=== PATIENT | male | born 1965 | race Caucasian/White ===

== ENCOUNTER 2017-09-16 18:30 | Inpatient (IN) ==
[2017-09-16] MEDS ORDERED: Piperacillin/Tazobactam 3.375 GM in Water for inj. (sterile) 20 ML 20 ML IVP ONE (19:40)
[2017-09-16 20:04] LABS: Basophils % 0.1 %; Eosinophils # 0.1 K/mcL (0.0-0.6); Eosinophils % 0.4 %; Hematocrit 33.9 % (37.5-50.1); Hemoglobin 10.5 g/dL (12.9-16.9); Immature Granulocytes % 0.4 % (0-4); Lymphocytes # 0.6 K/mcL (0.6-4.6); Lymphocytes % 4.1 %; Mean Corpuscular Hemoglobin 26.9 pg (28.0-33.3); Mean Corpuscular Volume 86.9 fL (83.0-100.0); Mean Platelet Volume 9.8 fL (9.4-12.4); Monocytes # 0.9 K/mcL (0.0-1.3); Neutrophils # 12.7 K/mcL (1.6-8.9); Platelet Count 284 K/mcL (140-400); Red Cell Distribution Width 13.5 % (11.5-14.5)
[2017-09-16 20:12] LABS: Calcium 9.3 mg/dL (8.6-10.3); Potassium 4.4 mEq/L (3.5-5.1)
--- NOTE | 2017-09-16 20:18 | Emergency Department Note ---
START Narrative - START START: I, Alan Castro, examined this patient and my medical decision-making was reviewed with the TRACK FITTER/PA/Advanced Practice Nurse/Resident Physician. I agree with the documented findings, disposition and treatment plan as described except to the extent set forth below. 51-year-old male presents emergency Department with concerns of infection to the left heel. 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 Patient states he had been on his feet for an extended period of time within the past week. Patient now has had increased pain with resting his foot on the ground as well as with walking. Patient describes an elevated temperature of 99.9. He took aspirin prior to arrival. Patient denies nausea, vomiting, diarrhea, chest pain , shortness of breath, abdominal pain. Has a history of severe diabetes with peripheral neuropathy. Patient is pending laboratory evaluation and imaging he will likely be admitted to the hospital with IV antibiotics for likely MRI and further evaluation of his left foot cellulitis
[2017-09-16] MEDS ORDERED: 0.9 % Sodium Chloride 1,000 ML IVC ONE (20:22)
--- NOTE | 2017-09-16 20:28 | Emergency Department Note ---
Disposition Clinical Impression: Foot ulcer Qualifiers: Laterality: left Non-pressure ulcer stage: unspecified non-pressure ulcer stage Qualified Code(s): L97.529 - Non-pressure chronic ulcer of other part of left foot with unspecified severity Disposition: Admitted As Inpatient Condition: Good Time of Disposition: 22:32 General Adult HPI - General Chief complaint: ED Skin/Abscess/Foreign Body Stated complaint: "bottom of my heals black" Time Seen by Provider: 09/16/17 19:13 Source: patient Limitations: no limitations Nursing Notes Reviewed: Yes Vital Signs Reviewed: Yes - History of Present Illness HPI Narrative: 51-year-old male with significant past medical history of stroke currently on aspirin and poorly controlled diabetes taking insulin presenting to the emergency department with chief complaint of sore on his left heel. Patient states he noticed approximately 3 days ago what he thought was a small sore on the bottom of his left heel. Today he took a picture left heel and he was unable to see it himself and noticed it looked black. He was concerned and came to the emergency department. Patient has had multiple toes removed on the left foot due to diabetic ulcers in the past. Patient denies any systemic symptoms at home. He has no complaints at this time. Denies chest pain, shortness of breath or fevers. Patient denies ever having a MRSA infection. He does state he is unable to take vancomycin because it caused him renal failure previously. Pain Scale: 2 - Related Data Home Medications Medication Instructions Recorded Confirmed Insulin DETEMIR [Levemir] 38 unit SQ QAM 10/01/16 10/01/16 Insulin LISPRO [Humalog Kwikpen 4 - 14 unit SQ TID 10/01/16 10/01/16 U-100] Previous Rx's Medication Instructions Recorded NIFEdipine XL (24 HR) [Procardia 30 mg PO DAILY #30 tab.er.24 04/29/16 XL] hydrALAZINE [HydrALAZINE] 100 mg PO Q8HR 30 Days tablet 04/29/16 Aspirin 81 mg PO DAILY #30 tab.chew 07/03/16 Atorvastatin [Lipitor] 80 mg PO HS #30 tablet 07/03/16 HYDROcodone/Acet 7.5/325 mg [[place] 1 tab PO Q8HR PRN #20 tablet 07/03/16 7.5-325 mg] Meclizine [Antivert] 25 mg PO TID PRN #90 tablet 07/03/16 Allergies Allergy/AdvReac Type Severity Reaction Status Date / Time cephalexin [From Keflex] AdvReac Nausea Verified 09/16/17 19:02 All systems ED: reviewed and negative except as stated. Integumentary: Reports: other (ulceration to left heel) Past Medical History - Past Medical History Attestation: Yes The following information was validated with the patient. Medical history: Reports: arthritis, CVA, diabetes, hypertension, other Surgical history: Reports: other Psychiatric history: Reports: depression - Social History Smoking Status: Never smoker Smokeless Tobacco Status: No Alcohol use: Reports: rarely Drug use: Reports: none Physical Exam - General Limitations: no limitations General appearance: alert, in no apparent distress - Head Head exam: atraumatic, normocephalic, normal inspection - Eye Eye exam: Present: normal appearance. Absent: scleral icterus, conjunctival injection - ENT ENT exam: normal exam, mucous membranes moist - Neck Neck exam: Present: normal inspection, full ROM. Absent: tenderness, meningismus - Chest Chest inspection: Present: normal inspection, symmetric chest wall rise. Absent : tenderness, rash - Respiratory Respiratory exam: Present: normal lung sounds bilaterally. Absent: respiratory distress, wheezes - Cardiovascular Cardiovascular exam: Present: normal rhythm, tachycardia, normal heart sounds - Abdominal Exam Abdominal exam: Present: soft, Non-Tender. Absent: distention, guarding, rebound - Extremities Exam Extremities exam: Present: other (Ulceration noted to the left heel. Healing dime-sized ulceration noted to the left foot as well. Superficial burn noted to the right medial calf multiple surgically removed toes on the left foot) - Neurological Exam Neurological exam: Present: alert, oriented X3 - Psychiatric Psychiatric exam: Present: normal affect, normal mood - Skin Skin exam: Present: warm, dry Course Course Narrative: 51-year-old male presenting to the emergency department with diabetic foot ulcer of the right heel. Patient believes he has had it for 3 days. Patient has no systemic signs or symptoms of infection at this time. Patient has had poor reaction to vancomycin in the past. We will perform basic lab work including CBC and blood cultures along with BMP. We will provide the patient with linezolid and Zosyn at this time as well. We will perform a foot x-ray as well. Patient is alert and oriented 3 in the room. Slightly tachycardic. Otherwise vital signs stable. We will provide him a 1 L normal saline as well for tachycardia. Patient agrees with this plan. Disposition most likely admission but pending results. - Reevaluation(s) Reevaluation #1: Patient's blood cell count elevated at 14.2 and creatinine elevated at 2.67. Patient's x-ray shows soft tissue changes that no overt signs of osteomyelitis. My attending spoke with Dr. elizabeth kim's previous surgeon who is aware of the case at this time. We will admit the patient at this time for diabetic foot ulcer treatment. He is alert and oriented 3 and remained stable vital signs at this time. He agrees with this plan. Vital Signs Temperature 99.9 F H 09/16/17 19:02 Pulse Rate 118 09/16/17 19:02 Respiratory Rate 22 09/16/17 19:02 Blood Pressure 196/98 09/16/17 19:02 O2 Sat by Pulse Oximetry 99 09/16/17 19:02 Temperature 99.5 F 09/17/17 03:17 Pulse Rate 94 09/17/17 03:17 Respiratory Rate 16 09/17/17 03:17 Blood Pressure 163/93 09/17/17 03:17 O2 Sat by Pulse Oximetry 96 09/17/17 03:17 Oxygen Delivery Oxygen Delivery Room Air Medical Decision Making - Lab Data Result diagrams: 09/16/17 19:49 09/16/17 19:49 Lab Results 09/16/17 09/16/17 09/16/17 Range/Units 19:49 19:49 19:49 WBC 14.2 H (4.3-11.1) K/mcL RBC 3.90 L (4.19-5.50) M/mcL Hgb 10.5 L (12.9-16.9) g/dL Hct 33.9 L (37.5-50.1) % MCV 86.9 (83.0-100.0) fL MCH 26.9 L (28.0-33.3) pg MCHC 31.0 L (31.6-35.5) g/dL RDW 13.5 (11.5-14.5) % Plt Count 284 (140-400) K/mcL MPV 9.8 (9.4-12.4) fL Immature Gran % 0.4 (0-4) % Seg Neutrophils % 89.0 % Lymphocytes % 4.1 % Monocytes % 6.0 % Eosinophils % 0.4 % Basophils % 0.1 % Neutrophils # 12.7 H (1.6-8.9) K/mcL Lymphocytes # 0.6 (0.6-4.6) K/mcL Monocytes # 0.9 (0.0-1.3) K/mcL Eosinophils # 0.1 (0.0-0.6) K/mcL Basophils # 0.0 (0.0-0.2) K/mcL Sodium 134 L (136-145) mEq/L Potassium 4.4 (3.5-5.1) mEq/L Chloride 102 (98-107) mEq/L Carbon Dioxide 22 L (23-29) mEq/L BUN 29 H (6-20) mg/dL Creatinine 2.67 H (0.70-1.30) mg/dL Est GFR ( Amer) 31 L (> 60) Est GFR (Non-Af Amer) 26 L (> 60) BUN/Creatinine Ratio 11 (6-26) Glucose 296 H (70-105) mg/dL POC Glucose (58-89) Calculated Osmolality 295 (280-300) Lactic Acid 1.4 (0.5-2.2) mmol/L Calcium 9.3 (8.6-10.3) mg/dL 09/17/17 Range/Units 00:29 WBC (4.3-11.1) K/mcL RBC (4.19-5.50) M/mcL Hgb (12.9-16.9) g/dL Hct (37.5-50.1) % MCV (83.0-100.0) fL MCH (28.0-33.3) pg MCHC (31.6-35.5) g/dL RDW (11.5-14.5) % Plt Count (140-400) K/mcL MPV (9.4-12.4) fL Immature Gran % (0-4) % Seg Neutrophils % % Lymphocytes % % Monocytes % % Eosinophils % % Basophils % % Neutrophils # (1.6-8.9) K/mcL Lymphocytes # (0.6-4.6) K/mcL Monocytes # (0.0-1.3) K/mcL Eosinophils # (0.0-0.6) K/mcL Basophils # (0.0-0.2) K/mcL Sodium (136-145) mEq/L Potassium (3.5-5.1) mEq/L Chloride (98-107) mEq/L Carbon Dioxide (23-29) mEq/L BUN (6-20) mg/dL Creatinine (0.70-1.30) mg/dL Est GFR ( Amer) (> 60) Est GFR (Non-Af Amer) (> 60) BUN/Creatinine Ratio (6-26) Glucose (70-105) mg/dL POC Glucose 250 H (58-89) Calculated Osmolality (280-300) Lactic Acid (0.5-2.2) mmol/L Calcium (8.6-10.3) mg/dL - EKG Data EKG #1 EKG attestation: Yes I reviewed and interpreted this EKG. EKG results narrative: Sinus tachycardia. Right bundle branch block. Left anterior fascicular block. Left ventricular hypertrophy. 193 minute. TX interval 164, QRS 157, QTC 448. No signs of acute ST segment elevation or ischemia noted.
[2017-09-16] MEDS ORDERED: hydrALAZINE 25 MG TABLET PO ONE (23:17)
[2017-09-17] MEDS ORDERED: D5% in Water 1,000 ML IVC PRN ×2 (01:08→03:11)
[2017-09-17] MEDS ORDERED: Dextrose Gel 15 GM/37.5 ML TUBE PO PRN ×4 (01:08→03:11)
[2017-09-17] MEDS ORDERED: *HR* Dextrose 50 % in Water (Syg) 50 ML SYRINGE IVP PRN ×2 (01:08→03:11)
[2017-09-17] MEDS: Insulin LISPRO 300 UNITS/3 ML VIAL SQ SCH ×5 (01:45→21:31)
[2017-09-17] MEDS ORDERED: Naloxone 0.4 MG/ML INJ IVP PRN (03:11)
--- NOTE | 2017-09-17 04:02 | Internal Med History&Physical ---
Date of Encounter: 09/17/17 Time of Encounter: 02:30 Assessment and Plan (1) Diabetic ulcer of left foot Current visit: No Status: Acute 1. Will place on IV antibiotics Zyvox and Zosyn. 2. Avoid Vancomycin for now due to kidney disease. 3. Dr. Valenzuela (Podiatry) consulted from ER. Qualifiers: Diabetic foot ulcer location: heel Diabetes mellitus type: type 2 Non- pressure ulcer stage: unspecified non-pressure ulcer stage Qualified Code(s): E11.621 - Type 2 diabetes mellitus with foot ulcer; L97.429 - Non-pressure chronic ulcer of left heel and midfoot with unspecified severity; L97.429 - Non- pressure chronic ulcer of left heel and midfoot with unspecified severity; L97.429 - Non-pressure chronic ulcer of left heel and midfoot with unspecified severity; L97.429 - Non-pressure chronic ulcer of left heel and midfoot with unspecified severity (2) Chronic kidney disease Current visit: No Status: Chronic 1. Patient reports kidney function appears at baseline. 2. Will hydrate judiciously and monitor renal function. 3. May need nephrology consultation if renal function does not improve. Qualifiers: Chronic kidney disease stage: stage 3 (moderate) Qualified Code(s): N18.3 - Chronic kidney disease, stage 3 (moderate) (3) Diabetes mellitus type 2, insulin dependent Current visit: No Status: Chronic 1. Will place on SSI and monitor glucose closely. 2. Adjust dosing as necessary. (4) DVT prophylaxis Current visit: No Status: Acute 1. Heparin SQ. Internal Medicine - H&P: HPI Chief complaint: heel ulcer and foul smell Admitted From: Emergency Dept Plans for Post Hospital Care: Home History of present illness: Mr. Gutierres is a 51 year old male who presents with complaints of a heel ulcer and foul smell from his left foot. His noticed it yesterday as he was looking at his foot with a mirror and his cell phone. He has poor sensation in his feet and did not notice any pain or swelling. However, he noticed a foul smell and some initial discharge from his foot the other day. This prompted him to further examine his feet, and he noticed a heel ulcer with a dark center. He therefore came to ER where he was diagnosed with a diabetic foot ulcer. Dr. Valenzuela was contacted by the ER and asked that the patient be admitted to the hospitalist service with urology consultation. Upon my assessment of the patient, he denies any problems or symptoms other than the heel ulcer he noted and the foul smell he noted 2 days ago. He denies any fevers, chills, or night sweats. He has no cough, congestion, shortness of breath, vomiting, or diarrhea. He worries about losing his foot to amputation. He has had amputation of a few toes already from similar issues. He is diabetic and has triopathy of diabetes. Past Med Surg Social Fam HX - Past Medical History Attestation: Yes The following information was validated with the patient. Source: patient, old records reviewed Medical history: arthritis, CVA, diabetes, hypertension Psychiatric history: depression - Past Surgical History Surgical History: orthopedic, other (toe amputations) - Social History Smoking Status: Never smoker Smokeless Tobacco Status: No Alcohol use: rarely Drug use: none Current living situation: Home, With Family Activity Level: Independent ambulation Recent Out of Country Travel Within the Last 8 Weeks: No - Family History Mother Living Status: Father Living Status: Hx Family Cancer: Yes Grandmother Living Status: Hx Family Cardiac Disorders: Yes Grandfather Living Status: Hx Family Cardiac Disorders: Yes Hx Family Neuromuscular Disorders: Yes Hx Family Neurologic Disorders: Yes Internal Medicine - H&P: Meds NIFEdipine XL (24 HR) [Procardia XL] 30 mg PO DAILY #30 tab.er.24 04/29/16 [Rx] hydrALAZINE [HydrALAZINE] 100 mg PO Q8HR 30 Days tablet 04/29/16 [Rx] Aspirin 81 mg PO DAILY #30 tab.chew 07/03/16 [Rx] Atorvastatin [Lipitor] 80 mg PO HS #30 tablet 07/03/16 [Rx] HYDROcodone/Acet 7.5/325 mg [[place] 7.5-325 mg] 1 tab PO Q8HR PRN #20 tablet [Rx] Meclizine [Antivert] 25 mg PO TID PRN #90 tablet 07/03/16 [Rx] Insulin DETEMIR [Levemir] 38 unit SQ QAM 10/01/16 [History] Insulin LISPRO [Humalog Kwikpen U-100] 4 - 14 unit SQ TID 10/01/16 [History] 3 Allergy/AdvReac Type Severity Reaction Status Date / Time cephalexin [From Keflex] AdvReac Nausea Verified 09/16/17 19:02 - Constitutional Constitutional: no chills, no fever(s), no night sweats - EENT Eyes: no blurry vision, no change in vision Ears: no ear pain, no tinnitus Nose, mouth and throat: no nasal congestion, no nasal discharge, no sore throat , no throat swelling - Cardiovascular Cardiovascular ROS IM: no chest pain, no diaphoresis, no dyspnea, no dyspnea on exertion - Respiratory Respiratory: no cough, no chest congestion, no excessive phlegm production - Gastrointestinal Gastrointestinal: no abdominal pain, no diarrhea, no vomiting - Genitourinary Genitourinary ROS male: no dysuria, no flank pain, no hematuria - Musculoskeletal Musculoskeletal ROS IM: arthralgias, back pain - Integumentary Integumentary IM: no rash - Neurological Neurological ROS: numbness (feet -- chronic), no dizziness, no focal weakness, no frequent falls - Psychiatric Psychiatric: no anxiety, no depression - Endocrine Endocrine IM: no polydipsia, no polyuria - Hematologic/Lymphatic Hematologic/Lymphatic: no easy bruising, no lymphadenopathy - Allergic/Immunologic Allergic/Immunologic: no wheezing, no GI upset with certain foods - Constitutional Vitals: Temp Pulse Resp BP Pulse Ox 99.5 F 94 16 163/93 96 09/17/17 03:17 09/17/17 03:17 09/17/17 03:17 09/17/17 03:17 09/17/17 03:17 General appearance: Present: cooperative, A&O X 3, pleasant, no acute distress, answers questions appropriately - Head Head exam: Present: atraumatic, normal inspection - Eye Eye exam: Present: EOMI, normal appearance, PERRL. Absent: scleral icterus Pupils: Present: normal accommodation - ENT ENT exam: Present: mucous membranes dry, normal exam, normal oropharynx - Neck Neck exam general surgery: Present: full ROM, supple. Absent: tenderness, nuchal rigidity - Respiratory Respiratory exam: Present: CTAB. Absent: chest wall tenderness, rales, rhonchi , wheezes - Cardiovascular Cardiovascular exam: Present: RRR, +S1, +S2. Absent: diastolic murmur, systolic murmur - GI/Abdominal GI/Abdominal exam: Present: normal bowel sounds, soft. Absent: hepatomegaly, mass, splenomegaly, tenderness - Extremities Exam Extremities exam: Present: full ROM, normal capillary refill, warm, radial pulses palpable and symmetrical. Absent: calf tenderness, joint swelling Additional comments: left heel with foul smell; heel ulcer; foot dressed with no appreciable drainage - Back Exam Back exam: Absent: CVA tenderness (L), CVA tenderness (R) - Neurological Exam Neurological exam: Present: alert, CN II-XII intact, motor sensory deficit ( decreased sensation in both feet ), oriented X3 - Psychiatric Psychiatric exam: Present: normal affect, normal mood - Skin Skin exam: Present: dry, warm. Absent: rash Internal Med - H&P Results - Labs CBC & Chem 7: 09/16/17 19:49 09/16/17 19:49 - EKG Data -: EKG Interpreted by Myself - EKG Data Prior EKG available for review: no EKG comments: 09/17/17 04:07 sinus rhythm/tachycardia; RBBB - Diagnostic Studies Other Images Status: image reviewed by me (Foot xray-- soft tissue finding over heel; otherwise negative)
[2017-09-17] MEDS: Acetaminophen 325 MG TABLET PO PRN (04:55)
[2017-09-17] MEDS: 0.9 % Sodium Chloride 1,000 ML IVC SCH ×2 (04:56→22:32)
[2017-09-17 06:13] LABS: Basophils % 0.2 %; Eosinophils # 0.1 K/mcL (0.0-0.6); Hematocrit 28.7 % (37.5-50.1); Hemoglobin 9.2 g/dL (12.9-16.9); Immature Granulocytes % 0.5 % (0-4); Lymphocytes # 1.1 K/mcL (0.6-4.6); Lymphocytes % 8.5 %; Mean Corpuscular HGB Conc 32.1 g/dL (31.6-35.5); Mean Corpuscular Hemoglobin 27.5 pg (28.0-33.3); Mean Corpuscular Volume 85.7 fL (83.0-100.0); Mean Platelet Volume 9.7 fL (9.4-12.4); Monocytes # 1.1 K/mcL (0.0-1.3); Monocytes % 8.3 %; Neutrophils # 10.8 K/mcL (1.6-8.9); Platelet Count 257 K/mcL (140-400); Red Blood Count 3.35 M/mcL (4.19-5.50); Red Cell Distribution Width 13.5 % (11.5-14.5); Segmented Neutrophils % 81.5 %
[2017-09-17 06:19] LABS: INR 1.2
[2017-09-17 06:33] LABS: Albumin 3.2 g/dL (3.5-5.7); Bilirubin,Total 0.5 mg/dL (0.3-1.0); Calcium 8.7 mg/dL (8.6-10.3); Globulin 3.1 g/dL (2.4-3.5); Magnesium 1.5 mg/dL (1.6-2.6); Potassium 4.1 mEq/L (3.5-5.1); Total Protein 6.3 g/dL (6.4-8.9)
[2017-09-17] MEDS: *HR* Heparin 5,000 UNIT/ML VIAL SQ SCH ×2 (08:11→17:19)
[2017-09-17] MEDS: Piperacillin/Tazobactam 3.375 GM in 0.9 % Sodium Chloride Mini Bag 100 ML IVPB SCH ×2 (08:12→17:19)
--- NOTE | 2017-09-17 11:19 | Internal Med Progress Note ---
Date of Encounter: 09/17/17 Time of Encounter: 11:15 - Assessment and plan (1) Sepsis Current Visit: Yes Status: Acute Assessment and plan: Presented with tachycardia, diabetic foot ulcer infection, leukocytosis Patient Foot MRI done and pending report Continue Zyvox and Zosyn Follow blood and wound culture Qualifiers: Sepsis type: sepsis due to unspecified organism Qualified Code(s): A41.9 - Sepsis, unspecified organism (2) Acute kidney injury superimposed on chronic kidney disease Current Visit: Yes Status: Acute Assessment and plan: baseline cr of 1.7, presented with 2.67 Continue IVF hydration and monitor I and O Avoid nephrotoxins including vancomycin 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 (3) Diabetes mellitus Current Visit: Yes Status: Chronic Assessment and plan: continue levemir, sliding scale, FS ACHS, ADA diet Qualifiers: Diabetes mellitus type: type 2 Diabetes mellitus complication status: with hyperglycemia Diabetes mellitus chcf insulin use: with chcf use Qualified Code(s): E11.65 - Type 2 diabetes mellitus with hyperglycemia; Z79.4 - half-way (current) use of insulin (4) Foot ulcer due to secondary DM Current Visit: Yes Status: Acute Assessment and plan: continue antibiotics Podiatry eval Follow MRI report (5) Obesity Current Visit: Yes Status: Chronic Assessment and plan: lifestyle modification Qualifiers: Obesity type: unspecified obesity type Obesity classification: adult class 3 (BMI >= 40) Serious obesity comorbidity presence: with serious comorbidity Body mass index: BMI 50.0-59.9 Qualified Code(s): E66.9 - Obesity, unspecified; Z68.43 - Body mass index (BMI) 50-59.9 , adult; Z68.43 - Body mass index (BMI) 50-59.9 , adult; Z68.43 - Body mass index (BMI) 50-59.9 , adult; Z68.43 - Body mass index (BMI) 50-59.9 , adult - Subjective Interval history: 51 M Morbidly Obese with DM Seen and evaluated at bedside He presented with complains of worsening foul smelling discharge from his diabetic foot He met sepsis criteria on admission with tachycardia, leukocytosis, suspected leg foot ulcer infection as well as acute on chronic kidney injury He denies new complains I have requested a wound culture POdiatry review is pending - Constitutional Vitals: Temp Pulse Resp BP Pulse Ox 97.8 F 89 16 142/81 94 09/17/17 07:22 09/17/17 07:22 09/17/17 07:22 09/17/17 07:22 09/17/17 07:22 General appearance: Present: cooperative, A&O X 3, morbidly obese, pleasant, no acute distress, answers questions appropriately - Head Head exam: Present: atraumatic, normocephalic - Eye Eye exam: Present: PERRL, conjuntiva pink, sclera anicteric Pupils: Present: PERRL - Neck Neck exam general surgery: Present: supple, trachea midline. Absent: lymphadenopathy - Respiratory Respiratory exam: Present: CTAB. Absent: accessory muscle use, rales, rhonchi, wheezes - Cardiovascular Cardiovascular exam: Present: RRR, +S1, +S2. Absent: diastolic murmur, gallop, rubs, systolic murmur - GI/Abdominal GI/Abdominal exam: Present: normal bowel sounds, soft, no peritoneal signs. Absent: distended, tenderness - Extremities Exam Additional comments: Left foot in dressing clean and ry dressing, open heel wound with necrotic eschar, no surrounding erythema. Hair and rocks present in the wound Patient has no sensation on that foot - Neurological Exam Neurological exam: Present: alert, CN II-XII intact, oriented X3, no focal deficits. Absent: pronater drift, facial droop, speech deficit - Skin Skin exam: Present: dry, intact Internal Medicine: Result - Labs CBC & Chem 7: 09/17/17 05:43 09/17/17 05:43 Labs: Short CBC 09/17/17 Range/Units 05:43 WBC 13.2 H (4.3-11.1) K/mcL Hgb 9.2 L (12.9-16.9) g/dL Hct 28.7 L (37.5-50.1) % Plt Count 257 (140-400) K/mcL Neutrophils # 10.8 H (1.6-8.9) K/mcL BMP 09/17/17 05:43 Sodium 132 L Potassium 4.1 Chloride 103 Carbon Dioxide 21 L BUN 28 H Creatinine 2.57 H Glucose 197 H Calcium 8.7 Liver Function 09/17/17 Range/Units 05:43 Total Bilirubin 0.5 (0.3-1.0) mg/dL AST 12 L (13-39) Units/L ALT 8 (7-52) Units/L Alkaline Phosphatase 115 H (34-104) Units/L Albumin 3.2 L (3.5-5.7) g/dL - ABG Interpretation ABG results: PT/INR, D-dimer PT 13.0 Seconds (9.4-12.1) H 09/17/17 05:43 Consult Discharge Plan - Plan Referrals: Sha Ruiz MD [Primary Care Provider] -
--- NOTE | 2017-09-17 12:46 | Podiatry Consult Note ---
Date of Encounter: 09/17/17 Time of Encounter: 12:00 Assessment and Plan (1) Foot ulcer Current visit: Yes Status: Acute Unstageable diabetic ulcer noted to left heel Ulceration was debrided of all debris at bedside today- large amount of animal hair and rocks removed from ulceration. Minimal drainage noted- foul odor Cultures obtained while at bedside Upon reviewing xrays and MRI there is no suspected bone involvement of the left calcaneus At this time we will treat conservatively with BID hibiclens washes of wound and BID application of santyl with wet to dry dressing Due to vessel calcifications noted on xray and non palpable pulses will order ARNULFO's Will also obtain ESR, CRP which were not obtained on admission Continue antibiotic coverage per internal medicine- patient has suffered vanc toxicity in the past with MELANIE, avoid if possible Await culture results Adaptic 4x4 and kerlex applied Tight glucose control to limit complications and promote healing. Qualifiers: Laterality: left Non-pressure ulcer stage: unspecified non-pressure ulcer stage Qualified Code(s): L97.529 - Non-pressure chronic ulcer of other part of left foot with unspecified severity History of Present Illness HPI: Mr. Gutierres is a 51 year old male who presents to [facility] for a reported ulceration of the left heel which is reports is foul smelling. Patient has hx of DM and obesity. Patient is known to podiatry- patient underwent a resection of mt #3 # 4 #5 following OM secondary to a diabetic foot infection about 1 year ago. Patient reports current ulcer started about 4 days ago. Patient states he believes it started as a crack to skin due to dry skin and he has been on his feet a lot at work and it split open. Patient states it does not hurt but he noticed a foul odor coming from his foot so he came to the hospital. Patient denies any known fevers, chills, n/v or flu like symptoms. Tmax 99.5 on admission and HR 94. Patient was admitted and started on IV antibiotics. Xray and MRI were obtained. Negative for osseous involvement of the heel. There were vessel calcifications noted on xray, abis were ordered. Past Med Surg Social Fam HX - Past Medical History Medical history: arthritis, CVA, diabetes, hypertension, other Psychiatric history: depression - Past Surgical History Surgical History: other - Social History Smoking Status: Never smoker Smokeless Tobacco Status: No Alcohol use: rarely Drug use: none - Family History Mother Living Status: Father Living Status: Hx Family Cancer: Yes Grandmother Living Status: Hx Family Cardiac Disorders: Yes Grandfather Living Status: Hx Family Cardiac Disorders: Yes Hx Family Neuromuscular Disorders: Yes Hx Family Neurologic Disorders: Yes Medications and Allergies NIFEdipine XL (24 HR) [Procardia XL] 30 mg PO DAILY #30 tab.er.24 04/29/16 [Rx] hydrALAZINE [HydrALAZINE] 100 mg PO Q8HR 30 Days tablet 04/29/16 [Rx] Aspirin 81 mg PO DAILY #30 tab.chew 07/03/16 [Rx] Insulin DETEMIR [Levemir] 38 unit SQ QAM 10/01/16 [History] Insulin LISPRO [Humalog Kwikpen U-100] 4 - 14 unit SQ TID 10/01/16 [History] 3 Allergy/AdvReac Type Severity Reaction Status Date / Time cephalexin [From Keflex] AdvReac Nausea Verified 09/16/17 19:02 All Systems Reviewed: The remainder of the systems were reviewed and are negative Physical Exam - Constitutional Vitals: Temp Pulse Resp BP Pulse Ox 98.4 F 91 15 173/100 98 09/17/17 11:38 09/17/17 11:38 09/17/17 11:38 09/17/17 11:38 09/17/17 11:38 Exam: General Examination: CONSTITUTIONAL: Alert, oriented, in no acute distress, non-toxic. EXTREMITIES: CFT 3 seconds all toes. Edema +1 and pedal to signal - non palpable. Left foot, amputation of #3 #4 #5 SKIN:There is noted cellulitis along medial aspect of left foot, mild, There is mild edema to foot. Mild erythema surrounding heel wound. There is minimal warmth. Mild edema and erythema. Does not appear ascending, no streaking is noted. NEUROLOGIC: Minimal sensation to light or moderate touch ULCER: There is a noted ulceration to the left heel measuring approx [id number] with a fibrous base. There is no granulation tissue noted to base at this time. Fibrous base is yellow/harden. unable to stage ulceration due to fibrous wound base. There is minimal noted drainage. Foul odor. Wound was covered in animal hair and rock debris, this was removed to allow for proper assessment of wound. There is minimal surrounding edema and erythema. No fluctuance noted to wound, does not appear to be any underlying abscess formation. No sinus tracts or tunneling. There is a small dry hyperkeratotic lesion sub mt head #2 left foot, this appears stable and unchanged. No appearance of infection. No fluctuance, No surrounding warmth, erythema or edema. Results - Labs Result Diagrams: 09/17/17 05:43 09/17/17 05:43 Labs: Abnormal lab results WBC 13.2 K/mcL (4.3-11.1) H 09/17/17 05:43 RBC 3.35 M/mcL (4.19-5.50) L 09/17/17 05:43 Hgb 9.2 g/dL (12.9-16.9) L 09/17/17 05:43 Hct 28.7 % (37.5-50.1) L 09/17/17 05:43 MCH 27.5 pg (28.0-33.3) L 09/17/17 05:43 Neutrophils # 10.8 K/mcL (1.6-8.9) H 09/17/17 05:43 PT 13.0 Seconds (9.4-12.1) H 09/17/17 05:43 Sodium 132 mEq/L (136-145) L 09/17/17 05:43 Carbon Dioxide 21 mEq/L (23-29) L 09/17/17 05:43 BUN 28 mg/dL (6-20) H 09/17/17 05:43 Creatinine 2.57 mg/dL (0.70-1.30) H 09/17/17 05:43 Est GFR ( Amer) 32 (> 60) L 09/17/17 05:43 Est GFR (Non-Af Amer) 27 (> 60) L 09/17/17 05:43 Glucose 197 mg/dL (70-105) H 09/17/17 05:43 POC Glucose 166 (58-89) H 09/17/17 11:41 Magnesium 1.5 mg/dL (1.6-2.6) L 09/17/17 05:43 AST 12 Units/L (13-39) L 09/17/17 05:43 Alkaline Phosphatase 115 Units/L (34-104) H 09/17/17 05:43 C-Reactive Protein 102 mg/L (Less than 10) H 09/17/17 11:48 Serum Total Protein 6.3 g/dL (6.4-8.9) L 09/17/17 05:43 Albumin 3.2 g/dL (3.5-5.7) L 09/17/17 05:43 Albumin/Globulin Ratio 1.0 (1.1-2.2) L 09/17/17 05:43 H & H 09/17/17 Range/Units 05:43 Hgb 9.2 L (12.9-16.9) g/dL Hct 28.7 L (37.5-50.1) % All other labs normal. Consult Discharge Plan - Plan Referrals: Sha Ruiz MD [Primary Care Provider] -
--- NOTE | 2017-09-17 19:53 | Electrocardiograph Report ---
[place] [id number] Test Date: 2017-09-16 Pat Name: Sudhir Gutierres Department: [id number] Room: [facility] Gender: M Vp Product: ISREAL : 1965 Requested By: Alan Castro Order Number: [id number] Reading MD: Kai Mo MD Measurements Intervals [place] Rate: 109 P: 47 VA: 164 QRS: -59 QRSD: 157 T: 66 QT: 384 QTc: 448 Interpretive Statements SINUS TACHYCARDIA RIGHT BUNDLE BRANCH BLOCK LEFT ANTERIOR FASCICULAR BLOCK Poor R wave progression Electronically Signed On 09-17-2017 19:52:02 EST by Kai Mo MD
[2017-09-17] MEDS: Insulin DETEMIR 100 UNIT/ML X5UNITS SQ SCH (21:30)
[2017-09-17] MEDS ORDERED: 0.9 % Sodium Chloride 1,000 ML ONE (22:27)
[2017-09-17] MEDS: hydrALAZINE 25 MG TABLET PO SCH (22:32)
[2017-09-17] MEDS: NIFEdipine XL (24 HR) 30 MG TAB.ER.24 PO SCH (22:32)
[2017-09-18] MEDS: Piperacillin/Tazobactam 3.375 GM in 0.9 % Sodium Chloride Mini Bag 100 ML IVPB SCH ×2 (00:08→08:40)
[2017-09-18] MEDS: *HR* Heparin 5,000 UNIT/ML VIAL SQ SCH ×3 (00:08→17:02)
[2017-09-18 03:46] LABS: Basophils % 0.3 %; Eosinophils # 0.2 K/mcL (0.0-0.6); Eosinophils % 1.8 %; Hematocrit 29.4 % (37.5-50.1); Hemoglobin 9.2 g/dL (12.9-16.9); Immature Granulocytes % 0.6 % (0-4); Lymphocytes # 1.2 K/mcL (0.6-4.6); Lymphocytes % 10.6 %; Mean Corpuscular HGB Conc 31.3 g/dL (31.6-35.5); Mean Corpuscular Hemoglobin 27.2 pg (28.0-33.3); Mean Platelet Volume 10.1 fL (9.4-12.4); Monocytes % 8.3 %; Platelet Count 280 K/mcL (140-400); Red Blood Count 3.38 M/mcL (4.19-5.50); Red Cell Distribution Width 13.4 % (11.5-14.5); Segmented Neutrophils % 78.4 %
[2017-09-18 04:02] LABS: Calcium 8.6 mg/dL (8.6-10.3); Potassium 4.1 mEq/L (3.5-5.1)
[2017-09-18] MEDS: hydrALAZINE 25 MG TABLET PO SCH ×3 (04:34→21:30)
[2017-09-18] MEDS: NIFEdipine XL (24 HR) 30 MG TAB.ER.24 PO SCH (08:41)
[2017-09-18] MEDS: Insulin LISPRO 300 UNITS/3 ML VIAL SQ SCH ×4 (08:41→21:31)
[2017-09-18] MEDS ORDERED: 0.9 % Sodium Chloride 1,000 ML IVC ONE (09:01)
[2017-09-18] MEDS ORDERED: Levofloxacin 750 MG/150 ML 750 MG/150 ML BAG IVPB SCH (10:00)
--- NOTE | 2017-09-18 10:01 | Internal Med Progress Note ---
Date of Encounter: 09/18/17 Time of Encounter: 10:01 - Assessment and plan (1) Sepsis Current Visit: Yes Status: Acute Assessment and plan: Presented with tachycardia, diabetic foot ulcer infection, leukocytosis MRI shows presence of a deep ulcer unstageable, as well as cellulitis. No osteomyelitis. Patient's kidney function is worsening therefore we will discontinue Zosyn. Change to Levaquin and Flagyl. Follow cultures done at the bedside from debridement. Blood cultures negative. Continue Zyvox Qualifiers: Sepsis type: sepsis due to unspecified organism Qualified Code(s): A41.9 - Sepsis, unspecified organism (2) Acute kidney injury superimposed on chronic kidney disease Current Visit: Yes Status: Acute Assessment and plan: baseline cr of 1.7, presented with 2.67 Creatinine THIS morning to 2.8. Continue IVF hydration and monitor I and O Avoid nephrotoxins including vancomycin Discontinue Zosyn. 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 (3) Diabetes mellitus Current Visit: Yes Status: Chronic Assessment and plan: continue levemir, sliding scale, FS ACHS, ADA diet Qualifiers: Diabetes mellitus type: type 2 Diabetes mellitus complication status: with hyperglycemia Diabetes mellitus intermission coordinator insulin use: with intermission coordinator use Qualified Code(s): E11.65 - Type 2 diabetes mellitus with hyperglycemia; Z79.4 - intermodal dispatcher (current) use of insulin (4) Foot ulcer due to secondary DM Current Visit: Yes Status: Acute Assessment and plan: [place] fluid known diabetic neuropathy and chronic left heel ulcer represented with ulceration and presence of animal hair and rocks with some foul-smelling drainage. He was also tachycardic on arrival and has acute on chronic kidney injury. His kidney function continues to worsen. Patient has a history of acute kidney injury to vancomycin requiring dialysis in the past. He was started on Zyvox and Zosyn. Podiatric evaluation noted, debridement done at the bedside and sent for culture. Culture is pending. MRI shows no osteomyelitis. We will change his antibiotics to Levaquin and Flagyl for anaerobic coverage, and continue Zyvox for MRSA coverage. Continue wound care as recommended by podiatry. (5) Cellulitis Current Visit: Yes Status: Acute Assessment and plan: As above. Qualifiers: Site of cellulitis: extremity Site of cellulitis of extremity: lower extremity Laterality: left Qualified Code(s): L03.116 - Cellulitis of left lower limb (6) Obesity Current Visit: Yes Status: Chronic Assessment and plan: lifestyle modification Qualifiers: Obesity type: unspecified obesity type Obesity classification: adult class 3 (BMI >= 40) Serious obesity comorbidity presence: with serious comorbidity Body mass index: BMI 50.0-59.9 Qualified Code(s): E66.9 - Obesity, unspecified; Z68.43 - Body mass index (BMI) 50-59.9 , adult; Z68.43 - Body mass index (BMI) 50-59.9 , adult; Z68.43 - Body mass index (BMI) 50-59.9 , adult; Z68.43 - Body mass index (BMI) 50-59.9 , adult (7) GERD (gastroesophageal reflux disease) Current Visit: Yes Status: Chronic Assessment and plan: Omeprazole once daily. Qualifiers: Esophagitis presence: without esophagitis Qualified Code(s): K21.9 - Gastro -esophageal reflux disease without esophagitis - Subjective Interval history: 51 M Morbidly Obese with DM Seen and evaluated at bedside He presented with complains of worsening foul smelling discharge from his diabetic foot He met sepsis criteria on admission with tachycardia, leukocytosis, suspected leg foot ulcer infection as well as acute on chronic kidney injury POdiatry evaluation noted and appreciated Blood culture is preliminary negative. Wound culture is pending. This morning, he is complaining of nausea and vomiting, as well as heartburn. His renal function continues to worsen. We will discontinue Zosyn as Zosyn is also nephrotoxic, we will change to Levaquin and Flagyl. Continue Zyvox. - Constitutional Vitals: Temp Pulse Resp BP Pulse Ox 97.4 F L 91 17 128/74 94 09/18/17 06:48 09/18/17 06:48 09/18/17 06:48 09/18/17 06:48 09/18/17 06:48 General appearance: Present: cooperative, A&O X 3, morbidly obese, pleasant, no acute distress, answers questions appropriately - Head Head exam: Present: atraumatic, normocephalic - Eye Eye exam: Present: PERRL, conjuntiva pink, sclera anicteric Pupils: Present: PERRL - Neck Neck exam general surgery: Present: supple, trachea midline. Absent: lymphadenopathy - Respiratory Respiratory exam: Present: CTAB. Absent: accessory muscle use, rales, rhonchi, wheezes - Cardiovascular Cardiovascular exam: Present: RRR, +S1, +S2. Absent: diastolic murmur, gallop, rubs, systolic murmur - GI/Abdominal GI/Abdominal exam: Present: normal bowel sounds, soft, no peritoneal signs. Absent: distended, tenderness - Extremities Exam Additional comments: Wound dressing clean and dry. - Neurological Exam Neurological exam: Present: alert, CN II-XII intact, oriented X3, no focal deficits. Absent: pronater drift, facial droop, speech deficit - Skin Skin exam: Present: dry, intact Internal Medicine: Result - Labs CBC & Chem 7: 09/18/17 00:52 09/18/17 00:52 Labs: Short CBC 09/18/17 Range/Units 00:52 WBC 11.5 H (4.3-11.1) K/mcL Hgb 9.2 L (12.9-16.9) g/dL Hct 29.4 L (37.5-50.1) % Plt Count 280 (140-400) K/mcL Neutrophils # 9.0 H (1.6-8.9) K/mcL BMP 09/18/17 00:52 Sodium 133 L Potassium 4.1 Chloride 104 Carbon Dioxide 20 L BUN 28 H Creatinine 2.88 H Glucose 161 H Calcium 8.6 - ABG Interpretation ABG results: PT/INR, D-dimer PT 13.0 Seconds (9.4-12.1) H 09/17/17 05:43 Consult Discharge Plan - Plan Referrals: Sha Ruiz MD [Primary Care Provider] -
[2017-09-18] MEDS: MetroNIDAZOLE 500 MG/100 ML 500 MG/100 ML BAG IVPB SCH ×2 (10:58→17:03)
[2017-09-18] MEDS: Ondansetron 4 MG/2 ML VIAL IVP PRN (11:12)
--- NOTE | 2017-09-18 12:58 | Podiatry Progress Note ---
Date of Encounter: 09/18/17 Time of Encounter: 12:20 - Assessment and Plan (1) VICKI (acute kidney injury) Current Visit: No Status: Acute Creatinine: 2.8. Managed by Hospitalist. Avoid nephrotoxins including vancomycin Zosyn was discontinued. (2) Diabetic ulcer of left foot Current Visit: No Status: Acute Unstageable diabetic ulcer to left heel. Loose hyperkeratotic skin removed with a tissue nipper. Small amount of serous drainage observed to dressing, ulcer is malodorous. Upon reviewing xrays and MRI there is no suspected bone involvement of the left calcaneus WBC: 11.5, ESR: 91, CRP: 102 Wound cultures pending. Blood Cultures: no growth Plan: Continue wound care as ordered. Continue antibiotic coverage per internal medicine. Wound cultures pending. Will continue to follow patient closely. Glucose control to promote wound healing. Qualifiers: Diabetic foot ulcer location: heel Diabetes mellitus type: type 2 Non- pressure ulcer stage: unspecified non-pressure ulcer stage Qualified Code(s): E11.621 - Type 2 diabetes mellitus with foot ulcer; L97.429 - Non-pressure chronic ulcer of left heel and midfoot with unspecified severity; L97.429 - Non- pressure chronic ulcer of left heel and midfoot with unspecified severity; L97.429 - Non-pressure chronic ulcer of left heel and midfoot with unspecified severity; L97.429 - Non-pressure chronic ulcer of left heel and midfoot with unspecified severity Subjective Interval history: Patient is lying in bed with dressing intact to left foot. Patient denies any pain. No c/o fever or chills. Patient states he is worried about his kidney function and does now want to go through dialysis again. Patient is asking when he can go home. Objective - Vital Signs Vital Signs: Vital Signs Temp Pulse Resp BP Pulse Ox 09/18/17 11:56 97.9 F 100 17 126/74 95 09/18/17 06:48 97.4 F L 91 17 128/74 94 09/18/17 04:07 97.7 F 88 19 96 09/18/17 00:06 97.8 F 89 18 156/96 96 09/17/17 19:47 98.1 F 94 18 163/73 96 09/17/17 15:54 98.0 F 91 15 175/96 94 Intake and Output 09/17/17 09/18/17 09/18/17 23:59 07:59 15:59 Intake Total 760 / 760 100 / 100 0 / 0 Output Total 1150 / 1150 195 / 195 Balance -390 / -390 100 / 100 -195 / -195 Intake: IV Fluids 400 / 400 100 / 100 Zyvox Premix 600mg/300mL 600 mg 300 / 300 In 300 ml @ 150 mls/hr IVPB Q12HR JAY Rx#:[id number] Zosyn 3.375 GM In 0.9 % Sodium 100 / 100 100 / 100 Chloride (Mini-Bag +) 100 ML @ 25 mls/hr IVPB Q8HR JAY Rx#: [id number] Oral 360 / 360 0 / 0 Output: Urine 1150 / 1150 175 / 175 Emesis 20 / 20 Other: Meal Dinner Breakfast Percent of Meal Consumed 85% 0% Stool Size Moderate Stool Consistency loose Stool Color Brown # Voids 1 1 # Bowel Movements 1 1 Weight 164.3 kg Blood Glucose* 207 169 181 Patient Weight 09/18/17 23:59 Weight 164.3 kg - Exam Exam: General appearance: alert awake oriented X 3. Calm and pleasant, no acute distress.. Vascular: non palpable pedal pulses, foot is warm to touch, CFT is immediate, No evidence of cyanosis, pallor or rubor, Edema graded at 1+/4, No calf pain with manual compression. Neurologic: Sensation intact with light touch to foot. . Ulcer: Unstageable heel ulcer to the plantar aspect of the left foot measuring 4 cm in length x 3 cm in width x 0.3 cm in depth base of wound with yellow and harden fibrous tissue, malodorous, loose hyperkeratotic skin distal to the wound. Small amount of serous drainage observed to dressing. - Lab Result Diagrams: 09/18/17 00:52 09/18/17 00:52 Labs: Abnormal lab results WBC 11.5 K/mcL (4.3-11.1) H 09/18/17 00:52 RBC 3.38 M/mcL (4.19-5.50) L 09/18/17 00:52 Hgb 9.2 g/dL (12.9-16.9) L 09/18/17 00:52 Hct 29.4 % (37.5-50.1) L 09/18/17 00:52 MCH 27.2 pg (28.0-33.3) L 09/18/17 00:52 MCHC 31.3 g/dL (31.6-35.5) L 09/18/17 00:52 Neutrophils # 9.0 K/mcL (1.6-8.9) H 09/18/17 00:52 ESR 91 mm/hr (0-10) H 09/17/17 11:48 PT 13.0 Seconds (9.4-12.1) H 09/17/17 05:43 Sodium 133 mEq/L (136-145) L 09/18/17 00:52 Carbon Dioxide 20 mEq/L (23-29) L 09/18/17 00:52 BUN 28 mg/dL (6-20) H 09/18/17 00:52 Creatinine 2.88 mg/dL (0.70-1.30) H 09/18/17 00:52 Est GFR ( Amer) 28 (> 60) L 09/18/17 00:52 Est GFR (Non-Af Amer) 23 (> 60) L 09/18/17 00:52 Glucose 161 mg/dL (70-105) H 09/18/17 00:52 POC Glucose 181 (58-89) H 09/18/17 11:59 Magnesium 1.5 mg/dL (1.6-2.6) L 09/17/17 05:43 AST 12 Units/L (13-39) L 09/17/17 05:43 Alkaline Phosphatase 115 Units/L (34-104) H 09/17/17 05:43 C-Reactive Protein 102 mg/L (Less than 10) H 09/17/17 11:48 Serum Total Protein 6.3 g/dL (6.4-8.9) L 09/17/17 05:43 Albumin 3.2 g/dL (3.5-5.7) L 09/17/17 05:43 Albumin/Globulin Ratio 1.0 (1.1-2.2) L 09/17/17 05:43 Microbiology, Last 48 Hours 09/17/17 11:50 Wound Culture - Preliminary Left Foot Proteus mirabilis Gram Negative Frank Consult Discharge Plan - Plan Referrals: Sha Ruiz MD [Primary Care Provider] -
[2017-09-18] MEDS: Insulin DETEMIR 100 UNIT/ML X5UNITS SQ SCH (21:31)
[2017-09-18] MEDS: Acetaminophen 325 MG TABLET PO PRN (21:36)
[2017-09-19] MEDS: *HR* Heparin 5,000 UNIT/ML VIAL SQ SCH ×4 (00:27→22:19)
[2017-09-19] MEDS: MetroNIDAZOLE 500 MG/100 ML 500 MG/100 ML BAG IVPB SCH ×2 (00:27→08:18)
[2017-09-19 00:31] LABS: Basophils % 0.2 %; Eosinophils # 0.2 K/mcL (0.0-0.6); Eosinophils % 1.3 %; Hematocrit 28.9 % (37.5-50.1); Immature Granulocytes % 0.6 % (0-4); Lymphocytes # 1.1 K/mcL (0.6-4.6); Lymphocytes % 9.2 %; Mean Corpuscular HGB Conc 31.1 g/dL (31.6-35.5); Mean Corpuscular Hemoglobin 26.9 pg (28.0-33.3); Mean Corpuscular Volume 86.5 fL (83.0-100.0); Mean Platelet Volume 9.7 fL (9.4-12.4); Monocytes # 0.9 K/mcL (0.0-1.3); Monocytes % 7.8 %; Neutrophils # 9.3 K/mcL (1.6-8.9); Platelet Count 273 K/mcL (140-400); Red Blood Count 3.34 M/mcL (4.19-5.50); Red Cell Distribution Width 13.6 % (11.5-14.5); Segmented Neutrophils % 80.9 %
[2017-09-19 00:45] LABS: Calcium 8.7 mg/dL (8.6-10.3); Potassium 4.4 mEq/L (3.5-5.1)
[2017-09-19] MEDS: Ondansetron 4 MG/2 ML VIAL IVP PRN (03:38)
[2017-09-19] MEDS: Acetaminophen 325 MG TABLET PO PRN (06:20)
[2017-09-19] MEDS: hydrALAZINE 25 MG TABLET PO SCH ×3 (06:21→22:18)
[2017-09-19] MEDS ORDERED: *HR* Promethazine 25 MG/ML VIAL IVP PRN (06:56)
[2017-09-19] MEDS: NIFEdipine XL (24 HR) 30 MG TAB.ER.24 PO SCH (08:17)
[2017-09-19] MEDS: Insulin LISPRO 300 UNITS/3 ML VIAL SQ SCH ×4 (08:17→22:18)
[2017-09-19] MEDS ORDERED: 0.9 % Sodium Chloride 1,000 ML IVC SCH (09:45)
--- NOTE | 2017-09-19 10:09 | Internal Med Progress Note ---
Date of Encounter: 09/19/17 Time of Encounter: 10:05 - Assessment and plan (1) Foot ulcer due to secondary DM Current Visit: Yes Status: Acute Assessment and plan: [place] fluid known diabetic neuropathy and chronic left heel ulcer represented with ulceration and presence of animal hair and rocks with some foul-smelling drainage. He was also tachycardic on arrival and has acute on chronic kidney injury. His kidney function continues to worsen. Patient has a history of acute kidney injury to vancomycin requiring dialysis in the past. He was started on Zyvox and Zosyn. Podiatric evaluation noted, debridement done at the bedside and sent for culture. Culture is pending. MRI shows no osteomyelitis. We will change his antibiotics to Levaquin and Flagyl for anaerobic coverage, and continue Zyvox for MRSA coverage. Continue wound care as recommended by podiatry. 09/19/17-continue current antibiotics Levaquin and Flagyl in addition to Zyvox. Podiatry following and asides from local debridement I do not have any further plans for now Local wound culture shows Proteus, gram-negative rods, enterococcus-his white cell count has improved significantly while on antibiotics I will consult infectious disease for further management and antibiotic guidance. I will avoid nephrotoxins given his history of renal failure at this time. Duration of antibiotics is to be determined. Blood cultures remain negative so far. No more fevers. Sepsis seems to be resolving. (2) Sepsis Current Visit: Yes Status: Resolved Assessment and plan: Presented with tachycardia, diabetic foot ulcer infection, leukocytosis MRI shows presence of a deep ulcer unstageable, as well as cellulitis. No osteomyelitis. Patient's kidney function is worsening therefore we will discontinue Zosyn. Change to Levaquin and Flagyl. Follow cultures done at the bedside from debridement. Blood cultures negative. Continue Zyvox 09/19- sepsis seems to be resolving at this point. His blood pressure seems stable and his tachycardia is slowly improving. I will give him 100 mL of IV normal saline for at least 10 hours and monitor his vital signs closely. As mentioned above are consulted infectious disease for antibiotic guidance. Qualifiers: Sepsis type: sepsis due to unspecified organism Qualified Code(s): A41.9 - Sepsis, unspecified organism (3) Acute kidney injury superimposed on chronic kidney disease Current Visit: Yes Status: Acute Assessment and plan: baseline cr of 1.7, presented with 2.67 Creatinine THIS morning to 2.8. Continue IVF hydration and monitor I and O Avoid nephrotoxins including vancomycin Discontinue Zosyn. 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 09/19 - creatinine seems to be slowly trending up Currently creatinine is 2.98. We are holding all nephrotoxins. I will give him IV fluids again and hopefully have a downward trend in his creatinine by tomorrow. Consider nephrology consult if the trend does not reverse. (4) Diabetes mellitus Current Visit: Yes Status: Chronic Assessment and plan: continue levemir, sliding scale, FS ACHS, ADA diet Qualifiers: Diabetes mellitus type: type 2 Diabetes mellitus local company intermodal truck driver insulin use: with local company intermodal truck driver use Diabetes mellitus complication status: with hyperglycemia Qualified Code(s): E11.65 - Type 2 diabetes mellitus with hyperglycemia; Z79.4 - longterm (current) use of insulin (5) GERD (gastroesophageal reflux disease) Current Visit: Yes Status: Chronic Assessment and plan: Omeprazole once daily. Qualifiers: Esophagitis presence: without esophagitis Qualified Code(s): K21.9 - Gastro -esophageal reflux disease without esophagitis (6) Morbid (severe) obesity due to excess calories Current Visit: Yes Status: Acute Assessment and plan: Dietary guidance provided. Nutrition consult - Time Spent With Patient Greater than 35 minutes - Subjective Interval history: Patient is visibly concerned about his renal function getting worse. He is afraid that last time his vancomycin use landed him in dialysis and he does not want to do that at this time. He denies any new pain or tingling or numbness in his foot. Does complain of intermittent headache which is now improved. - Constitutional Vitals: Temp Pulse Resp BP Pulse Ox 97.8 F 97 16 148/87 94 09/19/17 07:04 09/19/17 07:04 09/19/17 07:04 09/19/17 07:04 09/19/17 07:04 General appearance: Present: cooperative, A&O X 3, morbidly obese, pleasant, no acute distress, answers questions appropriately Exam: GENERAL: Alert, no distress, cooperative, morbidly obese EYES: PERRLA, EOMI EARS: External ears normal, canals clear OROPHARYNX: Lips, mucosa, and tongue normal. Teeth and gums normal. Oropharynx normal. NECK: No jugulovenous distention, No carotid bruits, Carotid pulse normal contour, Supple LUNGS: Lungs clear to auscultation, Good diaphragmatic excursion CARDIAC: Normal S1 and S2; no rubs, murmurs, or gallops ABDOMEN: Abdomen soft, non-tender, BS normal, No masses or organomegaly EXTREMITIES: Unstageable diabetic ulcer noted on the left heel. Also noticed cellulitis along the medial aspect of the left foot. Amputation of #3 #4 #5 NEURO: Gait normal. Reflexes normal and symmetric. Sensation grossly intact, Cranial nerves II-XII intact PULSES: 2+ radial, 2+ carotid Rest of the exam is non contributory Internal Medicine: Result - Labs CBC & Chem 7: 09/19/17 00:16 09/19/17 00:16 Labs: Short CBC 09/19/17 Range/Units 00:16 WBC 11.5 H (4.3-11.1) K/mcL Hgb 9.0 L (12.9-16.9) g/dL Hct 28.9 L (37.5-50.1) % Plt Count 273 (140-400) K/mcL Neutrophils # 9.3 H (1.6-8.9) K/mcL BMP 09/19/17 00:16 Sodium 130 L Potassium 4.4 Chloride 101 Carbon Dioxide 19 L BUN 26 H Creatinine 2.98 H Glucose 152 H Calcium 8.7 - ABG Interpretation ABG results: PT/INR, D-dimer PT 13.0 Seconds (9.4-12.1) H 09/17/17 05:43 Consult Discharge Plan - Plan Referrals: Sha Ruiz MD [Primary Care Provider] -
--- NOTE | 2017-09-19 12:49 | Infectious Disease Consult ---
Date of Encounter: 09/19/17 Time of Encounter: 12:49 Assessment and Plan (1) Severe sepsis Status: Acute Assessment and plan: On admission patient had 2 SIRS criteria including leukocytosis and tachycardia And and organ damage (acute kidney injury) Secondary to left lower extremity cellulitis (2) Cellulitis Status: Acute Assessment and plan: Of the left foot digit. Causative organism Escherichia coli, Proteus and enterococcus species MRI negative for osteomyelitis or fluid collection or abscess Discussed with Dr. acuña We will DC Zyvox, levofloxacin and Flagyl Start Zosyn Patient's creatinine clearance is approximately 46 per pharmacy No need to dose adjust Zosyn. If the enterococcus is a vancomycin-resistant strain, we will re-add Zyvox Duration of treatment depends on the clinical picture Qualifiers: Site of cellulitis: extremity Site of cellulitis of extremity: lower extremity Laterality: left Qualified Code(s): L03.116 - Cellulitis of left lower limb (3) Acute kidney injury superimposed on chronic kidney disease Status: Acute Assessment and plan: Baseline creatinine are on 2 Most recent creatinine is 2.96 Likely multifactorial We will try to avoid antibiotics that could be harsh on the kidneys (4) Chronic venous stasis dermatitis of both lower extremities Status: Acute (5) Foot ulcer Status: Acute Qualifiers: Laterality: left Non-pressure ulcer stage: unspecified non-pressure ulcer stage Qualified Code(s): L97.529 - Non-pressure chronic ulcer of other part of left foot with unspecified severity (6) Morbid (severe) obesity due to excess calories Status: Acute (7) Diabetes mellitus Status: Chronic Qualifiers: Diabetes mellitus type: type 2 Diabetes mellitus group home insulin use: with terminal gauger use Diabetes mellitus complication status: with hyperglycemia Qualified Code(s): E11.65 - Type 2 diabetes mellitus with hyperglycemia; Z79.4 - nursing home (current) use of insulin (8) Cerebrovascular accident Status: Acute Qualifiers: CVA mechanism: thrombosis Precerebral and cerebral artery: cerebellar artery Laterality of affected vessel: unspecified Qualified Code(s): I63.349 - Cerebral infarction due to thrombosis of unspecified cerebellar artery Infectious Disease HPI - Data of Consult Patient: known to practice within the last 3 years Consult date: 09/19/17 Requesting Physician: Jose Aviles Primary Care Provider: Sha Ruiz MD - Consult Narrative Reason for consult: cellulitis History of present illness: Mr. Gutierres is a 51 year old male Patient is a 51-year-old gentleman was admitted to [facility] on 09/17/2017 with heel ulcer and a drainage with foul smell, we are consulted today for diabetic foot ulcer with acute kidney injury requiring antibiotics. Patient is a 51-year-old gentleman who is known to our service with past medical history significant for diabetes mellitus type 2, hypertension, arthritis and history of CVA and history of osteomyelitis of the left foot in the past of the third and fourth toes on the left with the causative organism of Proteus mirabilis, enterococcus faecalis who underwent incision and drainage and amputation of toe and metatarsal #[address] Lovett on 04/11/2016. Patient was treated by us with Unasyn 3 g IV every 12 hours for 6 weeks total. Patient came in on this admission on the sixth to the emergency department complaining of heel ulcer. patient denies any drainage at that time. no fevers no chills, no night sweats. patients blood sugar has been poorly controlled. last HbA1c around 10. When I asked him about the allergic reaction to Keflex, patient told me that it made him nauseous. No hives or true allergies. Since admission, patients MAXIMUM TEMPERATURE was 99.9 Fahrenheit. Patient was also tachycardic with a heart rate in the 100s. Presenting WBC was 14.2 with 89% neutrophils. Patients creatinine was 2.57 inches higher than his baseline of around 1.7-2.0. Lactic acid was 1.4. Blood cultures were obtained on September 16 and it shows no growth to date. Left foot wound culture was obtained and it grew Proteus mirabilis that was pansensitive. Escherichia coli that was resistant to ampicillin, ampicillin sulbactam, levofloxacin and tobramycin. Patient also had enterococcus species with final susceptibilities pending. An MRI of the foot was performed on September 17 which revealed an ulcer at the plantar aspect of the heel up to 7 mm in depth with no adjacent osteomyelitis or osseous destruction. There was moderate to severe cellulitis of the left ankle/left foot with no discrete abscess formation. Moderate myositis likely infectious. Patient was started on Zyvox, levofloxacin and metronidazole. We were asked to evaluate the patients make further recommendations. CC: Jose Aviles Past Med Surg Social Fam HX - Past Medical History Medical history: arthritis, CVA, diabetes, hypertension, other Psychiatric history: depression - Past Surgical History Surgical History: other - Social History Smoking Status: Never smoker Smokeless Tobacco Status: No Alcohol use: rarely Drug use: none - Family History Mother Living Status: Father Living Status: Hx Family Cancer: Yes Grandmother Living Status: Hx Family Cardiac Disorders: Yes Grandfather Living Status: Hx Family Cardiac Disorders: Yes Hx Family Neuromuscular Disorders: Yes Hx Family Neurologic Disorders: Yes Infectious Disease-CN:Meds NIFEdipine XL (24 HR) [Procardia XL] 30 mg PO DAILY #30 tab.er.24 04/29/16 [Rx] hydrALAZINE [HydrALAZINE] 100 mg PO Q8HR 30 Days tablet 04/29/16 [Rx] Aspirin 81 mg PO DAILY #30 tab.chew 07/03/16 [Rx] Insulin DETEMIR [Levemir] 38 unit SQ QAM 10/01/16 [History] Insulin LISPRO [Humalog Kwikpen U-100] 4 - 14 unit SQ TID 10/01/16 [History] 3 Allergy/AdvReac Type Severity Reaction Status Date / Time cephalexin [From Keflex] AdvReac Nausea Verified 09/16/17 19:02 Review of systems: 10 point review of systems done, negative other for what mentioned in the history of present illness. Exam - Constitutional Vitals: Temp Pulse Resp BP Pulse Ox 98 F 89 16 144/83 95 09/19/17 11:15 09/19/17 11:15 09/19/17 11:15 09/19/17 11:15 09/19/17 11:15 General appearance: no acute distress, obese, no febrile - Head Head exam: Present: atraumatic, normocephalic - Eye Eye exam: Present: EOMI, PERRL, sclera anicteric - ENT ENT exam: Present: mucous membranes dry Additional comments: no Oral lesions - Neck Neck exam: Present: full ROM. Absent: meningismus - Respiratory Respiratory exam: Present: CTAB. Absent: wheezes - Cardiovascular Cardiovascular exam: Present: RRR, +S1, +S2 - GI/Abdominal GI/Abdominal exam: Present: normal bowel sounds, soft. Absent: tenderness - Extremities Exam Additional comments: Bilateral lower extremity venous stasis and edema. Ulcer on the plantar aspect of the foot on the left with minimal drainage. - Neurological Exam Neurological exam: Present: alert, oriented X3. Absent: speech deficit Infectious Disease CN: Results - Labs CBC & Chem 7: 09/19/17 00:16 09/19/17 00:16 Cultures: Cultures 09/17/17 11:50 Wound Culture - Preliminary Left Foot Proteus mirabilis Escherichia coli Enterococcus species Consult Discharge Plan - Plan Referrals: Sha Ruiz MD [Primary Care Provider] -
--- NOTE | 2017-09-19 13:12 | Podiatry Progress Note ---
Date of Encounter: 09/19/17 Time of Encounter: 12:00 - Assessment and Plan (1) Foot ulcer Current Visit: Yes Status: Acute Unstageable diabetic ulcer noted to left heel Dressing changed at bedside Small amount of serous drainage observed to dressing, ulcer is malodorous. There is noted improvement in wound appearance and surrounding erythema and edema. Creat continues to rise slowly 2.98 today- internal medicine following Cultures prelim proteus mirabilis, e.coli and enterococcus species Current antibiotic therapy Zyvox, levofloxacin and metronidazole but ID now on board and managing Upon reviewing xrays and MRI there is no suspected bone involvement of the left calcaneus WBC: cont to be 11.5, ESR: 91, CRP: 102 Blood Cultures: no growth Plan: Continue wound care as ordered santyl and wet to dry dressing Will continue to follow patient closely. protective weight bearing to forefoot only Glucose control to promote wound healing. At this time we will treat conservatively with BID hibiclens washes of wound and BID application of santyl with wet to dry dressing Qualifiers: Laterality: left Non-pressure ulcer stage: unspecified non-pressure ulcer stage Qualified Code(s): L97.529 - Non-pressure chronic ulcer of other part of left foot with unspecified severity Subjective Interval history: Patient is lying in bed with dressing intact to left foot. Patient denies any pain. No c/o fever or chills. Patient states he is worried about his kidney function and does not want to go through dialysis again. Says there was a drSantos by that states he is working with his antibiotics. Appears ID has been consulted regarding antibiotics and ARF Objective - Vital Signs Vital Signs: Vital Signs Temp Pulse Resp BP Pulse Ox 09/19/17 11:15 98 F 89 16 144/83 95 09/19/17 07:04 97.8 F 97 16 148/87 94 09/19/17 03:26 97.9 F 94 18 153/84 90 09/18/17 23:00 98.6 F 96 16 108/66 94 09/18/17 19:02 98.7 F 96 18 122/75 93 09/18/17 16:36 97.8 F 91 17 113/74 91 Intake and Output 09/18/17 09/19/17 09/19/17 23:59 07:59 15:59 Intake Total 400 / 400 100 / 100 400 / 400 Output Total 0 / 0 Balance 400 / 400 100 / 100 400 / 400 Intake: IV Fluids 400 / 400 100 / 100 400 / 400 Zyvox Premix 600mg/300mL 600 mg 300 / 300 300 / 300 In 300 ml @ 150 mls/hr IVPB Q12HR JAY Rx#:[id number] Flagyl Premix 500 MG/100 ML 500 100 / 100 100 / 100 100 / 100 mg In 100 ml @ 100 mls/hr IVPB Q8HR JAY Rx#:[id number] Oral 0 / 0 Output: Urine 0 / 0 Other: # Voids 1 4 Weight 168.2 kg Blood Glucose* 220 157 177 Patient Weight 09/19/17 23:59 Weight 168.2 kg - Exam Exam: General Examination: CONSTITUTIONAL: Alert, oriented, in no acute distress, non-toxic. EXTREMITIES: CFT 3 seconds all toes. Edema +1 and pedal pulses palpable. NEUROLOGIC: Minimal sensation to light or moderate touch ULCER: There is a continued stable ulceration to lateral aspect of left heel. There continues to be a fibrous harden/yellow wound bed with minimal granulation tissue. Surrounding edema and erythema has improved slightly in appearance. Minimal warmth. No drainage noted at this time. Foul odor. No fluctuance. No ascending cellulitis. - Lab Result Diagrams: 09/23/17 04:42 09/23/17 04:42 Labs: Abnormal lab results WBC 11.5 K/mcL (4.3-11.1) H 09/19/17 00:16 RBC 3.34 M/mcL (4.19-5.50) L 09/19/17 00:16 Hgb 9.0 g/dL (12.9-16.9) L 09/19/17 00:16 Hct 28.9 % (37.5-50.1) L 09/19/17 00:16 MCH 26.9 pg (28.0-33.3) L 09/19/17 00:16 MCHC 31.1 g/dL (31.6-35.5) L 09/19/17 00:16 Neutrophils # 9.3 K/mcL (1.6-8.9) H 09/19/17 00:16 ESR 91 mm/hr (0-10) H 09/17/17 11:48 PT 13.0 Seconds (9.4-12.1) H 09/17/17 05:43 Sodium 130 mEq/L (136-145) L 09/19/17 00:16 Carbon Dioxide 19 mEq/L (23-29) L 09/19/17 00:16 BUN 26 mg/dL (6-20) H 09/19/17 00:16 Creatinine 2.98 mg/dL (0.70-1.30) H 09/19/17 00:16 Est GFR ( Amer) 27 (> 60) L 09/19/17 00:16 Est GFR (Non-Af Amer) 23 (> 60) L 09/19/17 00:16 Glucose 152 mg/dL (70-105) H 09/19/17 00:16 POC Glucose 177 (58-89) H 09/19/17 11:15 Calculated Osmolality 278 (280-300) L 09/19/17 00:16 Magnesium 1.5 mg/dL (1.6-2.6) L 09/17/17 05:43 AST 12 Units/L (13-39) L 09/17/17 05:43 Alkaline Phosphatase 115 Units/L (34-104) H 09/17/17 05:43 C-Reactive Protein 102 mg/L (Less than 10) H 09/17/17 11:48 Serum Total Protein 6.3 g/dL (6.4-8.9) L 09/17/17 05:43 Albumin 3.2 g/dL (3.5-5.7) L 09/17/17 05:43 Albumin/Globulin Ratio 1.0 (1.1-2.2) L 09/17/17 05:43 Microbiology, Last 48 Hours 09/17/17 11:50 Wound Culture - Preliminary Left Foot Proteus mirabilis Escherichia coli Enterococcus species Consult Discharge Plan - Plan Referrals: Sha Ruiz MD [Primary Care Provider] -
[2017-09-19] MEDS: Piperacillin/Tazobactam 3.375 GM in 0.9 % Sodium Chloride Mini Bag 100 ML IVPB SCH ×2 (16:11→22:19)
[2017-09-19] MEDS: Insulin DETEMIR 100 UNIT/ML X5UNITS SQ SCH (22:18)
[2017-09-20] MEDS: hydrALAZINE 25 MG TABLET PO SCH ×3 (06:42→21:31)
[2017-09-20] MEDS: Piperacillin/Tazobactam 3.375 GM in 0.9 % Sodium Chloride Mini Bag 100 ML IVPB SCH ×3 (06:43→21:32)
[2017-09-20] MEDS: Acetaminophen 325 MG TABLET PO PRN (06:49)
[2017-09-20 08:36] LABS: Basophils % 0.4 %; Eosinophils # 0.2 K/mcL (0.0-0.6); Eosinophils % 1.8 %; Hematocrit 29.1 % (37.5-50.1); Hemoglobin 9.1 g/dL (12.9-16.9); Immature Granulocytes % 0.8 % (0-4); Lymphocytes # 1.1 K/mcL (0.6-4.6); Lymphocytes % 9.7 %; Mean Corpuscular HGB Conc 31.3 g/dL (31.6-35.5); Mean Corpuscular Hemoglobin 27.2 pg (28.0-33.3); Mean Corpuscular Volume 87.1 fL (83.0-100.0); Mean Platelet Volume 9.1 fL (9.4-12.4); Monocytes # 0.9 K/mcL (0.0-1.3); Monocytes % 8.5 %; Neutrophils # 8.7 K/mcL (1.6-8.9); Platelet Count 255 K/mcL (140-400); Red Blood Count 3.34 M/mcL (4.19-5.50); Red Cell Distribution Width 13.7 % (11.5-14.5); Segmented Neutrophils % 78.8 %
[2017-09-20] MEDS: Aspirin 81 MG TAB.CHEW PO SCH (08:46)
[2017-09-20] MEDS: NIFEdipine XL (24 HR) 30 MG TAB.ER.24 PO SCH (08:46)
[2017-09-20] MEDS: Insulin LISPRO 300 UNITS/3 ML VIAL SQ SCH ×4 (08:48→21:34)
[2017-09-20] MEDS: *HR* Heparin 5,000 UNIT/ML VIAL SQ SCH ×2 (08:49→16:55)
[2017-09-20 08:56] LABS: Albumin 3.3 g/dL (3.5-5.7); Bilirubin,Total 0.5 mg/dL (0.3-1.0); Calcium 8.8 mg/dL (8.6-10.3); Globulin 3.2 g/dL (2.4-3.5); Potassium 4.4 mEq/L (3.5-5.1); Total Protein 6.5 g/dL (6.4-8.9)
--- NOTE | 2017-09-20 09:12 | Internal Med Progress Note ---
Date of Encounter: 09/20/17 Time of Encounter: 09:10 - Assessment and plan (1) Foot ulcer due to secondary DM Current Visit: Yes Status: Acute Assessment and plan: [place]ett fluid known diabetic neuropathy and chronic left heel ulcer represented with ulceration and presence of animal hair and rocks with some foul-smelling drainage. He was also tachycardic on arrival and has acute on chronic kidney injury. His kidney function continues to worsen. Patient has a history of acute kidney injury to vancomycin requiring dialysis in the past. He was started on Zyvox and Zosyn. Podiatric evaluation noted, debridement done at the bedside and sent for culture. Culture is pending. MRI shows no osteomyelitis. We will change his antibiotics to Levaquin and Flagyl for anaerobic coverage, and continue Zyvox for MRSA coverage. Continue wound care as recommended by podiatry. 09/19/17-continue current antibiotics Levaquin and Flagyl in addition to Zyvox. Podiatry following and asides from local debridement I do not have any further plans for now Local wound culture shows Proteus, gram-negative rods, enterococcus-his white cell count has improved significantly while on antibiotics I will consult infectious disease for further management and antibiotic guidance. I will avoid nephrotoxins given his history of renal failure at this time. Duration of antibiotics is to be determined. Blood cultures remain negative so far. No more fevers. Sepsis seems to be resolving. 09/20/2017-appreciated infectious disease involvement. Continue Zosyn for now and await final culture and speciation for additional antibiotics. (2) Acute kidney injury superimposed on chronic kidney disease Current Visit: Yes Status: Acute Assessment and plan: baseline cr of 1.7, presented with 2.67 Creatinine THIS morning to 2.8. Continue IVF hydration and monitor I and O Avoid nephrotoxins including vancomycin Discontinue Zosyn. 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 09/19 - creatinine seems to be slowly trending up Currently creatinine is 2.98. We are holding all nephrotoxins. I will give him IV fluids again and hopefully have a downward trend in his creatinine by tomorrow. Consider nephrology consult if the trend does not reverse. 09/20/2017-creatinine is slowly trending up and is worse today at 3.1 after fluid challenge yesterday. I have placed a consult to Dr. Bowman from nephrology who will be in to see the patient today. I would continue to hold onto Zosyn for now however given ID input unless further additions or adjustments per nephrology (3) Sepsis Current Visit: No Status: Resolved Assessment and plan: Presented with tachycardia, diabetic foot ulcer infection, leukocytosis MRI shows presence of a deep ulcer unstageable, as well as cellulitis. No osteomyelitis. Patient's kidney function is worsening therefore we will discontinue Zosyn. Change to Levaquin and Flagyl. Follow cultures done at the bedside from debridement. Blood cultures negative. Continue Zyvox 09/19- sepsis seems to be resolving at this point. His blood pressure seems stable and his tachycardia is slowly improving. I will give him 100 mL of IV normal saline for at least 10 hours and monitor his vital signs closely. As mentioned above are consulted infectious disease for antibiotic guidance. Qualifiers: Sepsis type: sepsis due to unspecified organism Qualified Code(s): A41.9 - Sepsis, unspecified organism (4) Diabetes mellitus Current Visit: Yes Status: Chronic Assessment and plan: continue levemir, sliding scale, FS ACHS, ADA diet Qualifiers: Diabetes mellitus type: type 2 Diabetes mellitus alf insulin use: with terminal makeup operator use Diabetes mellitus complication status: with hyperglycemia Qualified Code(s): E11.65 - Type 2 diabetes mellitus with hyperglycemia; Z79.4 - [facility] (current) use of insulin (5) GERD (gastroesophageal reflux disease) Current Visit: Yes Status: Chronic Assessment and plan: Omeprazole once daily. Qualifiers: Esophagitis presence: without esophagitis Qualified Code(s): K21.9 - Gastro -esophageal reflux disease without esophagitis (6) Morbid (severe) obesity due to excess calories Current Visit: Yes Status: Acute Assessment and plan: Dietary guidance provided. Nutrition consult - Time Spent With Patient 25 - 35 minutes - Subjective Interval history: Patient denies any new pain, fevers, chills. - Constitutional Vitals: Temp Pulse Resp BP Pulse Ox 97.9 F 92 18 151/86 93 09/20/17 06:52 09/20/17 06:52 09/20/17 06:52 09/20/17 06:52 09/20/17 06:52 General appearance: Present: cooperative, A&O X 3, morbidly obese, pleasant, no acute distress, answers questions appropriately Exam: GENERAL: Alert, no distress, morbidly obese, cooperative EYES: PERRLA, EOMI EARS: External ears normal, canals clear OROPHARYNX: Lips, mucosa, and tongue normal. Teeth and gums normal. Oropharynx normal. NECK: No jugulovenous distention, No carotid bruits, Carotid pulse normal contour, Supple LUNGS: Lungs clear to auscultation, Good diaphragmatic excursion CARDIAC: Normal S1 and S2; no rubs, murmurs, or gallops ABDOMEN: Abdomen soft, non-tender, BS normal, No masses or organomegaly EXTREMITIES: Left heel ulcer again examined. Necrotic base with surrounding cellulitis. Packed with gauze NEURO: Gait not tested due to patient preference. No other focal neurological deficits . Poor sensation along both lower extremities especially on the base of the feet PULSES: 2+ radial, 2+ carotid Rest of the exam is non contributory Internal Medicine: Result - Labs CBC & Chem 7: 09/20/17 08:26 09/20/17 08:26 Labs: Short CBC 09/20/17 Range/Units 08:26 WBC 11.1 (4.3-11.1) K/mcL Hgb 9.1 L (12.9-16.9) g/dL Hct 29.1 L (37.5-50.1) % Plt Count 255 (140-400) K/mcL Neutrophils # 8.7 (1.6-8.9) K/mcL BMP 09/20/17 08:26 Sodium 130 L Potassium 4.4 Chloride 102 Carbon Dioxide 19 L BUN 23 H Creatinine 3.10 H Glucose 151 H Calcium 8.8 Liver Function 09/20/17 Range/Units 08:26 Total Bilirubin 0.5 (0.3-1.0) mg/dL AST 14 (13-39) Units/L ALT 10 (7-52) Units/L Alkaline Phosphatase 105 H (34-104) Units/L Albumin 3.3 L (3.5-5.7) g/dL - ABG Interpretation ABG results: PT/INR, D-dimer PT 13.0 Seconds (9.4-12.1) H 09/17/17 05:43 Consult Discharge Plan - Plan Referrals: Sha Ruiz MD [Primary Care Provider] -
--- NOTE | 2017-09-20 12:37 | Nephrology Consult Note ---
Date of Encounter: 09/20/17 Time of Encounter: 12:35 Assessment and Plan (1) VICKI (acute kidney injury) Status: Acute Elevated SCr in the setting of sepsis and exposure to antibiotics Will check US of kidney Will check urine for UA, sodium, eosinophil and creatinine Will check CPK and uric acid levels Encouraged po fluids, able to drink 2liters+ No acute indication for BUSINESS DEVELOPMENT SPECIALIST at this time (2) CKD (chronic kidney disease) stage 3, GFR 30-59 ml/min Status: Acute Baseline GFR in the 30-40s as of end 2016 (3) Foot ulcer Status: Acute Crae per podiatry and renally friendly antibiotics advised Qualifiers: Laterality: left Non-pressure ulcer stage: unspecified non-pressure ulcer stage Qualified Code(s): L97.529 - Non-pressure chronic ulcer of other part of left foot with unspecified severity History of Present Illness - Reason for Consult Consult date: 09/20/17 Acute Kidney Injury, Chronic Kidney Disease - History of Present Illness 51 y o male with PMH of obesity, HTN, DM with prior diabetic foot ulcers requiring amputations in the past and VICKI in apr 2016 requiring transient HD admitted this time with left foot heel ulcer with foul smell. Renal consulted for rising SCr during hospital stay. Last SCr prior to admission noted at 1.7, GFR 43 as of 06/2016. On presentation was noted with SCr at 2.67, GFr 26 worsening to 3.1, GFR 22. Pt was recently illness treated with antibiotics but does not remember name. Also may have used NSAIDs recently. Past Med Surg Social Fam HX - Past Medical History Medical history: arthritis, CVA, diabetes, hypertension, other Psychiatric history: depression - Past Surgical History Surgical History: other - Social History Smoking Status: Never smoker Smokeless Tobacco Status: No Alcohol use: rarely Drug use: none - Family History Mother Living Status: Father Living Status: Hx Family Cancer: Yes Grandmother Living Status: Hx Family Cardiac Disorders: Yes Grandfather Living Status: Hx Family Cardiac Disorders: Yes Hx Family Neuromuscular Disorders: Yes Hx Family Neurologic Disorders: Yes Medications and Allergies NIFEdipine XL (24 HR) [Procardia XL] 30 mg PO DAILY #30 tab.er.24 04/29/16 [Rx] hydrALAZINE [HydrALAZINE] 100 mg PO Q8HR 30 Days tablet 04/29/16 [Rx] Aspirin 81 mg PO DAILY #30 tab.chew 07/03/16 [Rx] Insulin DETEMIR [Levemir] 38 unit SQ QAM 10/01/16 [History] Insulin LISPRO [Humalog Kwikpen U-100] 4 - 14 unit SQ TID 10/01/16 [History] Amoxicillin 500 mg PO TID #42 tablet 09/24/17 [Rx] Cefdinir [Omnicef] 300 mg PO BID #28 capsule 09/24/17 [Rx] Collagenase Oint [Santyl] 1 appl TP BID #1 tube 09/24/17 [Rx] 3 Allergy/AdvReac Type Severity Reaction Status Date / Time cephalexin [From Keflex] AdvReac Nausea Verified 09/16/17 19:02 Review of Systems All Systems: reviewed and no additional remarkable complaints except as stated ( 10 systems reviewed and pertinent positive noted in HPI) Exam - Vital Signs Vital signs: Initial Vital Signs Temp Pulse Resp BP Pulse Ox 99.9 F H 118 22 196/98 99 09/16/17 19:02 09/16/17 19:02 09/16/17 19:02 09/16/17 19:02 09/16/17 19:02 Vital Signs - Last 8 Hours Temp Pulse Resp BP Pulse Ox 09/20/17 11:05 97.7 F 85 17 166/76 93 09/20/17 09:00 93 09/20/17 06:52 97.9 F 92 18 151/86 93 09/20/17 05:04 98.5 F 86 18 143/84 99 Intake and Output 09/19/17 09/20/17 09/20/17 23:59 07:59 15:59 Intake Total 1200 / 1200 1100 / 1100 220 / 220 Output Total 1600 / 1600 800 / 800 Balance -400 / -400 300 / 300 220 / 220 Intake: IV Fluids 100 / 100 100 / 100 100 / 100 Zosyn 3.375 GM In 0.9 % Sodium 100 / 100 100 / 100 100 / 100 Chloride (Mini-Bag +) 100 ML @ 25 mls/hr IVPB Q8H JAY Rx#: [id number] Oral 1100 / 1100 1000 / 1000 120 / 120 Output: Urine 1600 / 1600 800 / 800 Other: Meal Breakfast Percent of Meal Consumed 100% Weight 169.8 kg Blood Glucose* 194 168 134 Patient Weight 09/20/17 23:59 Weight 169.8 kg - General Appearance General appearance: chronically ill EENT: ATNC, mucous membranes moist Neck: no JVD, supple Respiratory: clear Cardiology: edema (LE bilat with seeping fluids noted), normal S1, normal S2 Gastrointestinal: no tenderness, no guarding, obese Integumentary: chronic venous stasis Neurologic: no focal deficit Musculoskeletal: no deformities Psychiatric: mood/affect appropriate, cooperative Results - Lab Results 09/24/17 06:45 09/24/17 06:45 Most recent lab results Calcium 8.8 mg/dL (8.6-10.3) 09/20/17 08:26 Magnesium 1.5 mg/dL (1.6-2.6) L 09/17/17 05:43 Consult Discharge Plan - Plan Additional Instructions: Please return to ER if worsening foot ulcer, development of warmth, redness, or pain at site of recent debridement. Please take all medications as prescribed: Continue previous home medications Amoxicillin 500 mg 3 times a day for 2 weeks Omnicef 300 mg twice a day for 2 weeks Continue to apply Santyl cream per podiatry recommendations Repeat lab work in 1 week to assess renal function Follow-up with her PCP, ID, nephrology, and podiatry Referrals: [facility] [Other] - 10/01/17 3:15 pm Alexandra Phelps MD [Partnered Physician] - 10/21/17 11:00 am (First appt. available. Patient will be new to the office. Thank you) Kassandra Alcazar MD [Partnered Physician] - 10/08/17 2:00 pm Sha Ruiz MD [Primary Care Provider] - 09/26/17 10:00 am Prescriptions: Amoxicillin 500 mg PO TID #42 tablet Cefdinir [Omnicef] 300 mg PO BID #28 capsule Collagenase Oint [Santyl] 1 appl TP BID #1 tube
[2017-09-20 14:35] LABS: Uric Acid 6.5 mg/dL (2.3-7.6)
[2017-09-20] MEDS: Insulin DETEMIR 100 UNIT/ML X5UNITS SQ SCH (21:32)
[2017-09-20 21:53] LABS: Sodium, Urine 43.4 mEq/L
[2017-09-20 22:37] LABS: Bilirubin,Urine Negative (Negative); Blood,Urine Negative (Negative); Clarity,Urine Clear (Clear); Color,Urine Yellow (Yellow); Glucose,Urine (UA) 100 mg/dL (Normal); Ketones,Urine Negative (Negative); Leukocyte Esterase,Urine Negative (Negative); Nitrite,Urine Negative (Negative); Protein,Urine 100 mg/dL (Neg-Trace); Specific Gravity,Urine 1.018 (1.010-1.025); Urobilinogen,Urine Normal (Normal)
[2017-09-20 22:38] LABS: Bacteria,Urine None Seen per hpf (None-Few); Hyaline Casts,Urine None Seen per lpf (None-Few); Squamous Epithelial Cell,Urine Few per lpf (None-Few); WBC,Urine 0-3 per hpf (0-3)
[2017-09-20 23:12] LABS: RBC,Urine 0-3 per hpf (0-3)
[2017-09-21] MEDS: *HR* Heparin 5,000 UNIT/ML VIAL SQ SCH ×3 (00:11→17:06)
[2017-09-21] MEDS: hydrALAZINE 25 MG TABLET PO SCH ×3 (06:12→21:18)
[2017-09-21] MEDS: Piperacillin/Tazobactam 3.375 GM in 0.9 % Sodium Chloride Mini Bag 100 ML IVPB SCH ×3 (06:12→21:18)
[2017-09-21] MEDS: Insulin LISPRO 300 UNITS/3 ML VIAL SQ SCH ×4 (07:59→21:15)
[2017-09-21] MEDS: Aspirin 81 MG TAB.CHEW PO SCH (07:59)
[2017-09-21] MEDS: NIFEdipine XL (24 HR) 30 MG TAB.ER.24 PO SCH (07:59)
[2017-09-21 09:42] LABS: Basophils % 0.3 %; Eosinophils # 0.3 K/mcL (0.0-0.6); Eosinophils % 3.1 %; Hematocrit 29.5 % (37.5-50.1); Hemoglobin 9.3 g/dL (12.9-16.9); Immature Granulocytes % 0.7 % (0-4); Lymphocytes # 1.1 K/mcL (0.6-4.6); Lymphocytes % 9.9 %; Mean Corpuscular HGB Conc 31.5 g/dL (31.6-35.5); Mean Corpuscular Hemoglobin 27.4 pg (28.0-33.3); Mean Platelet Volume 9.8 fL (9.4-12.4); Monocytes # 0.9 K/mcL (0.0-1.3); Monocytes % 8.6 %; Neutrophils # 8.2 K/mcL (1.6-8.9); Platelet Count 263 K/mcL (140-400); Red Blood Count 3.39 M/mcL (4.19-5.50); Red Cell Distribution Width 13.9 % (11.5-14.5); Segmented Neutrophils % 77.4 %
[2017-09-21 10:04] LABS: Albumin 3.2 g/dL (3.5-5.7); Bilirubin,Total 0.4 mg/dL (0.3-1.0); Calcium 8.4 mg/dL (8.6-10.3); Globulin 3.2 g/dL (2.4-3.5); Potassium 4.2 mEq/L (3.5-5.1); Total Protein 6.4 g/dL (6.4-8.9)
[2017-09-21 11:03] LABS: Estimated Average Glucose 223 mg/dl; Hemoglobin A1C 9.4 %
--- NOTE | 2017-09-21 11:17 | Internal Med Progress Note ---
Date of Encounter: 09/21/17 Time of Encounter: 11:15 - Assessment and plan (1) Foot ulcer due to secondary DM Current Visit: Yes Status: Acute Assessment and plan: [place] fluid known diabetic neuropathy and chronic left heel ulcer represented with ulceration and presence of animal hair and rocks with some foul-smelling drainage. He was also tachycardic on arrival and has acute on chronic kidney injury. His kidney function continues to worsen. Patient has a history of acute kidney injury to vancomycin requiring dialysis in the past. He was started on Zyvox and Zosyn. Podiatric evaluation noted, debridement done at the bedside and sent for culture. Culture is pending. MRI shows no osteomyelitis. We will change his antibiotics to Levaquin and Flagyl for anaerobic coverage, and continue Zyvox for MRSA coverage. Continue wound care as recommended by podiatry. 09/19/17-continue current antibiotics Levaquin and Flagyl in addition to Zyvox. Podiatry following and asides from local debridement I do not have any further plans for now Local wound culture shows Proteus, gram-negative rods, enterococcus-his white cell count has improved significantly while on antibiotics I will consult infectious disease for further management and antibiotic guidance. I will avoid nephrotoxins given his history of renal failure at this time. Duration of antibiotics is to be determined. Blood cultures remain negative so far. No more fevers. Sepsis seems to be resolving. [id number] infectious disease involvement. Continue Zosyn for now and await final culture and speciation for additional antibiotics. (2) Acute kidney injury superimposed on chronic kidney disease Current Visit: Yes Status: Acute Assessment and plan: baseline cr of 1.7, presented with 2.67 Creatinine THIS morning to 2.8. Continue IVF hydration and monitor I and O Avoid nephrotoxins including vancomycin Discontinue Zosyn. 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 09/19 - creatinine seems to be slowly trending up Currently creatinine is 2.98. We are holding all nephrotoxins. I will give him IV fluids again and hopefully have a downward trend in his creatinine by tomorrow. Consider nephrology consult if the trend does not reverse. 09/20/2017-creatinine is slowly trending up and is worse today at 3.1 after fluid challenge yesterday. I have placed a consult to Dr. Bowman from nephrology who will be in to see the patient today. I would continue to hold onto Zosyn for now however given ID input unless further additions or adjustments per nephrology 09/21/2017-creatinine is worse today at 3.44. Renal ultrasound is normal. Further renal workup has been initiated by nephrology and the results are pending. Continue oral hydration. Consider IV challenge again today with fluids and await further recommendations from nephrology (3) Sepsis Current Visit: No Status: Resolved Assessment and plan: Appears to have resolved at this point. Qualifiers: Sepsis type: sepsis due to unspecified organism Qualified Code(s): A41.9 - Sepsis, unspecified organism (4) Diabetes mellitus Current Visit: Yes Status: Chronic Assessment and plan: continue levemir, sliding scale, FS ACHS, ADA diet Qualifiers: Diabetes mellitus type: type 2 Diabetes mellitus terminal computer operator insulin use: with terminal computer operator use Diabetes mellitus complication status: with hyperglycemia Qualified Code(s): E11.65 - Type 2 diabetes mellitus with hyperglycemia; Z79.4 - custodial (current) use of insulin (5) GERD (gastroesophageal reflux disease) Current Visit: Yes Status: Chronic Assessment and plan: Omeprazole once daily. Qualifiers: Esophagitis presence: without esophagitis Qualified Code(s): K21.9 - Gastro -esophageal reflux disease without esophagitis (6) Morbid (severe) obesity due to excess calories Current Visit: Yes Status: Acute Assessment and plan: Dietary guidance provided. Nutrition consult - Time Spent With Patient 25 - 35 minutes - Subjective Interval history: Patient denies any new pain, fevers, chills. - Constitutional Vitals: Temp Pulse Resp BP Pulse Ox 98.5 F 91 17 118/71 92 09/21/17 06:56 09/21/17 06:56 09/21/17 06:56 09/21/17 06:56 09/21/17 06:56 General appearance: Present: cooperative, A&O X 3, morbidly obese, pleasant, no acute distress, answers questions appropriately Exam: GENERAL: Alert, no distress, morbidly obese, cooperative EYES: PERRLA, EOMI EARS: External ears normal, canals clear OROPHARYNX: Lips, mucosa, and tongue normal. Teeth and gums normal. Oropharynx normal. NECK: No jugulovenous distention, No carotid bruits, Carotid pulse normal contour, Supple LUNGS: Lungs clear to auscultation, Good diaphragmatic excursion CARDIAC: Normal S1 and S2; no rubs, murmurs, or gallops ABDOMEN: Abdomen soft, non-tender, BS normal, No masses or organomegaly EXTREMITIES: Left heel ulcer again examined. Necrotic base with surrounding cellulitis. Packed with gauze NEURO: Gait not tested due to patient preference. No other focal neurological deficits . Poor sensation along both lower extremities especially on the base of the feet PULSES: 2+ radial, 2+ carotid Rest of the exam is non contributory Internal Medicine: Result - Labs CBC & Chem 7: 09/21/17 08:54 09/21/17 08:54 Labs: Short CBC 09/21/17 Range/Units 08:54 WBC 10.6 (4.3-11.1) K/mcL Hgb 9.3 L (12.9-16.9) g/dL Hct 29.5 L (37.5-50.1) % Plt Count 263 (140-400) K/mcL Neutrophils # 8.2 (1.6-8.9) K/mcL BMP 09/20/17 09/21/17 08:26 08:54 Sodium 130 L 128 L Potassium 4.4 4.2 Chloride 102 103 Carbon Dioxide 19 L 19 L BUN 23 H 29 H Creatinine 3.10 H 3.44 H Glucose 151 H 219 H Calcium 8.8 8.4 L Liver Function 09/20/17 09/21/17 Range/Units 08:26 08:54 Total Bilirubin 0.5 0.4 (0.3-1.0) mg/dL AST 14 17 (13-39) Units/L ALT 10 12 (7-52) Units/L Alkaline Phosphatase 105 H 107 H (34-104) Units/L Albumin 3.3 L 3.2 L (3.5-5.7) g/dL Urine 09/20/17 Range/Units 21:00 Urine Color Yellow (Yellow) Urine Clarity Clear (Clear) Urine pH 6.0 (5.0-8.0) pH Units Ur Specific [place] 1.018 (1.010-1.025) Urine Protein 100 H (Neg-Trace) mg/dL Urine Glucose (UA) 100 H (Normal) mg/dL - ABG Interpretation ABG results: PT/INR, D-dimer PT 13.0 Seconds (9.4-12.1) H 09/17/17 05:43 - Impressions Impressions Retroperitoneum Ultrasound 09/20/17 13:22 IMPRESSION: Normal sonographic appearance of the kidneys and urinary bladder. D/ / Parth Hylton MD / Parth Hylton MD Interpreting Provider: Parth Hylton MD Consult Discharge Plan - Plan Referrals: Sha Ruiz MD [Primary Care Provider] -
--- NOTE | 2017-09-21 11:21 | Nephrology Progress Note ---
Date of Encounter: 09/21/17 Time of Encounter: 12:00 - Assessment and Plan (1) VICKI (acute kidney injury) Status: Acute SCr worse at 3.44, GFR 19 UOP noted at 1750cc which is actually quite good No acute indication for LIAISON OFFICER just yet but discussed possibility with worsening renal fxn Uric acid and CPK levels WNL Urine studies unremarkable US of kidney shows size asymmetry but otherwise unremarkable Continue fluids po and might need ivf as well Continue to avoid nephrotoxins if possible (2) CKD (chronic kidney disease) stage 3, GFR 30-59 ml/min Status: Acute (3) Foot ulcer Status: Acute Qualifiers: Laterality: left Non-pressure ulcer stage: unspecified non-pressure ulcer stage Qualified Code(s): L97.529 - Non-pressure chronic ulcer of other part of left foot with unspecified severity Subjective Interval history: Pt seen and examined with no new complaints Objective - Vital Signs Vital signs: Vital Signs Temp Pulse Resp BP Pulse Ox 09/21/17 06:56 98.5 F 91 17 118/71 92 09/20/17 23:35 98.4 F 84 17 159/84 94 09/20/17 20:55 97.6 F 98 17 140/75 96 09/20/17 17:13 98.2 F 86 18 162/93 94 09/20/17 11:05 97.7 F 85 17 166/76 93 Intake and Output 09/20/17 09/21/17 09/21/17 22:59 07:59 15:59 Intake Total Output Total Balance Intake: IV Fluids Zosyn 3.375 GM In 0.9 % Sodium Chloride (Mini-Bag +) 100 ML @ 25 mls/hr IVPB Q8H JAY Rx#: [id number] Oral Output: Urine Other: Meal Percent of Meal Consumed # Voids Weight Blood Glucose* Patient Weight 09/22/17 00:59 Weight 170.1 kg - General Appearance General appearance: Present: obese, chronically ill EENT: Present: ATNC, mucous membranes moist Neck: Present: no JVD, supple Respiratory: Present: clear Cardiology: Present: edema, normal S1, normal S2 Gastrointestinal: Present: no tenderness, no guarding, obese Integumentary: Present: warm and dry Neurologic: Present: no focal deficit Musculoskeletal: Present: no deformities Psychiatric: Present: mood/affect appropriate - Lab 09/24/17 06:45 09/24/17 06:45 Most recent lab results Calcium 8.4 mg/dL (8.6-10.3) L 09/21/17 08:54 Magnesium 1.5 mg/dL (1.6-2.6) L 09/17/17 05:43 Urine Creatinine 90 mg/dL 09/20/17 21:00 Urine Sodium 43.4 mEq/L 09/20/17 21:00 Consult Discharge Plan - Plan Additional Instructions: Please return to ER if worsening foot ulcer, development of warmth, redness, or pain at site of recent debridement. Please take all medications as prescribed: Continue previous home medications Amoxicillin 500 mg 3 times a day for 2 weeks Omnicef 300 mg twice a day for 2 weeks Continue to apply Santyl cream per podiatry recommendations Repeat lab work in 1 week to assess renal function Follow-up with her PCP, ID, nephrology, and podiatry Referrals: [facility] [Other] - 10/01/17 3:15 pm Alexandra Phelps MD [Partnered Physician] - 10/21/17 11:00 am (First appt. available. Patient will be new to the office. Thank you) Kassandra Alcazar MD [Partnered Physician] - 10/08/17 2:00 pm Sha Ruiz MD [Primary Care Provider] - 09/26/17 10:00 am Prescriptions: Amoxicillin 500 mg PO TID #42 tablet Cefdinir [Omnicef] 300 mg PO BID #28 capsule Collagenase Oint [Santyl] 1 appl TP BID #1 tube
[2017-09-21] MEDS: Insulin DETEMIR 100 UNIT/ML X5UNITS SQ SCH (21:18)
[2017-09-22] MEDS: *HR* Heparin 5,000 UNIT/ML VIAL SQ SCH ×3 (00:17→17:04)
[2017-09-22] MEDS: hydrALAZINE 25 MG TABLET PO SCH ×3 (06:30→21:32)
[2017-09-22] MEDS: Piperacillin/Tazobactam 3.375 GM in 0.9 % Sodium Chloride Mini Bag 100 ML IVPB SCH ×3 (06:30→21:33)
[2017-09-22] MEDS: NIFEdipine XL (24 HR) 30 MG TAB.ER.24 PO SCH (08:14)
[2017-09-22] MEDS: Aspirin 81 MG TAB.CHEW PO SCH (08:14)
[2017-09-22] MEDS: Insulin LISPRO 300 UNITS/3 ML VIAL SQ SCH ×5 (08:15→21:31)
--- NOTE | 2017-09-22 09:18 | Infectious Disease Progress No ---
Date of Encounter: 09/22/17 Time of Encounter: 09:16 - Assessment and Plan (1) Cellulitis Current Visit: Yes Status: Acute Cellulitis of the left foot- significantly improved. - Causative organisms including Proteus Mirabilis, Escherichia coli, enterococcus species - demonstrates sensitivity to current antibiotic coverage to Zosyn 3.375 g IV every 8 hours - Enterococcus species sensitive to vancomycin, Ampicillin (resistant to Tetracyclines) no need to add Zyvox at this time. - Creatinine clearance 41ml/min (using creatinine from 09/21) - MRI performed 09/17/2017 was negative for osteomyelitis or fluid collection or abscess. Qualifiers: Site of cellulitis: extremity Site of cellulitis of extremity: lower extremity Laterality: left Qualified Code(s): L03.116 - Cellulitis of left lower limb (2) Foot ulcer due to secondary DM Current Visit: Yes Status: Acute Patient presented with 7 mm diabetic foot ulcer to the left heel, MRI does not demonstrate any bony involvement. 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 - Wound improving. - Continue wound management per podiatry. (3) Acute kidney injury superimposed on chronic kidney disease Current Visit: Yes Status: Acute Current Creatinine 3.40 (yesterday 3.44), Baseline around 2.0 GFR 19 - Hx of significant deterioration in renal function in 2016 requiring short term dialysis. Creatinine clearance: 41 Suspected multifactoral with current left heel ulcer and cellulites. We will try to avoid antibiotics that could be harsh on the kidneys (4) Morbid (severe) obesity due to excess calories Current Visit: Yes Status: Acute BMI 55.5 (5) Chronic venous stasis dermatitis of both lower extremities Current Visit: Yes Status: Acute Stable, may contribute in poor healing of LE wounds and infections. (6) Severe sepsis Current Visit: Yes Status: Acute On admission Mr. Gutierres met 2 SIRS criteria including leukocytosis and tachycardia - He demonstrates end organ damage (acute kidney injury) with worsening renal function suspected secondary to left lower extremity cellulitis - Tachycardia and Leukocytosis now resolved with current therapy. (7) Diabetes mellitus Current Visit: Yes Status: Chronic Insulin dependent diabetic, uncontrolled diabetes with hemoglobin A1c of 10 and current hyperglycemia. - Complicated by previous diabetic foot ulcers resulting in osteomyelitis and digits and metatarsal amputations. - Currently complicated by left heel ulcer - Right heel demonstrates callus and high risk for future diabetic ulcer formation. Qualifiers: Diabetes mellitus type: type 2 Diabetes mellitus chcf insulin use: with termination clerk use Diabetes mellitus complication status: with hyperglycemia Qualified Code(s): E11.65 - Type 2 diabetes mellitus with hyperglycemia; Z79.4 - halfway (current) use of insulin - Subjective Interval history: Mr. Gutierres 51-year-old male seen and evaluated patient bedside this morning. He denies any pain, discomfort, fevers, chills, diaphoresis, nausea, vomiting, diarrhea, constipation, change in urinary frequency. He feels that the ulcer on his left heel is improving, the cellulitis has mostly resolved and denies any lower extremity pain. He states that the edema in his bilateral lower extremities is unchanged from previous. He is very concerned regarding his renal function states that he had a previous infection that resulted in kidney injury requiring dialysis. He is concerned that his renal function is having that direction at this time. Regarding his mobility at home and walks with a walker and uses she will insert's to try and prevents further ulceration formation. He has not seen a carbon paste mixer operator since his amputation surgery last year. Infect Dis PN-Objective Data - Labs CBC & Chem 7: 09/22/17 08:48 09/22/17 08:48 Labs: Laboratory Results - last 24 hr 09/20/17 09/21/17 09/21/17 21:03 01:55 08:54 WBC 10.6 RBC 3.39 L Hgb 9.3 L Hct 29.5 L MCV 87.0 MCH 27.4 L MCHC 31.5 L RDW 13.9 Plt Count 263 MPV 9.8 Immature Gran % 0.7 Seg Neutrophils % 77.4 Lymphocytes % 9.9 Monocytes % 8.6 Eosinophils % 3.1 Basophils % 0.3 Neutrophils # 8.2 Lymphocytes # 1.1 Monocytes # 0.9 Eosinophils # 0.3 Basophils # 0.0 Sodium Potassium Chloride Carbon Dioxide BUN Creatinine Est GFR ( Amer) Est GFR (Non-Af Amer) BUN/Creatinine Ratio Glucose POC Glucose 193 H Est Mean Plasma Glucose 223 Hemoglobin A1c 9.4 H Calculated Osmolality Calcium Total Bilirubin AST ALT Alkaline Phosphatase Serum Total Protein Albumin Globulin Albumin/Globulin Ratio 09/21/17 09/21/17 09/21/17 08:54 11:15 16:36 WBC RBC Hgb Hct MCV MCH MCHC RDW Plt Count MPV Immature Gran % Seg Neutrophils % Lymphocytes % Monocytes % Eosinophils % Basophils % Neutrophils # Lymphocytes # Monocytes # Eosinophils # Basophils # Sodium 128 L Potassium 4.2 Chloride 103 Carbon Dioxide 19 L BUN 29 H Creatinine 3.44 H Est GFR ( Amer) 23 L Est GFR (Non-Af Amer) 19 L BUN/Creatinine Ratio 8 Glucose 219 H POC Glucose 175 H 185 H Est Mean Plasma Glucose Hemoglobin A1c Calculated Osmolality 279 L Calcium 8.4 L Total Bilirubin 0.4 AST 17 ALT 12 Alkaline Phosphatase 107 H Serum Total Protein 6.4 Albumin 3.2 L Globulin 3.2 Albumin/Globulin Ratio 1.0 L 09/21/17 09/22/17 20:23 08:14 WBC RBC Hgb Hct MCV MCH MCHC RDW Plt Count MPV Immature Gran % Seg Neutrophils % Lymphocytes % Monocytes % Eosinophils % Basophils % Neutrophils # Lymphocytes # Monocytes # Eosinophils # Basophils # Sodium Potassium Chloride Carbon Dioxide BUN Creatinine Est GFR ( Amer) Est GFR (Non-Af Amer) BUN/Creatinine Ratio Glucose POC Glucose 191 H 169 H Est Mean Plasma Glucose Hemoglobin A1c Calculated Osmolality Calcium Total Bilirubin AST ALT Alkaline Phosphatase Serum Total Protein Albumin Globulin Albumin/Globulin Ratio Cultures: Cultures 09/17/17 11:50 Wound Culture - Final Left Foot Proteus mirabilis Escherichia coli Enterococcus species Serology 09/20/17 09/20/17 Range/Units 21:00 21:00 Urine Color Yellow (Yellow) Urine Clarity Clear (Clear) Urine pH 6.0 (5.0-8.0) pH Units Ur Specific [place] 1.018 (1.010-1.025) Urine Protein 100 H (Neg-Trace) mg/dL Urine Glucose (UA) 100 H (Normal) mg/dL Urine Ketones Negative (Negative) mg/dL Urine Blood Negative (Negative) Urine Nitrite Negative (Negative) Urine Bilirubin Negative (Negative) Urine Urobilinogen Normal (Normal) mg/dL Ur Leukocyte Esterase Negative (Negative) Urine Microscopic RBC 0-3 (0-3) per hpf Urine Microscopic WBC 0-3 (0-3) per hpf Ur Eosinophil Smear 0 (None Seen) % Ur Squamous Epith Cells Few (None-Few) per lpf Urine Bacteria None Seen (None-Few) per hpf Hyaline Casts None Seen (None-Few) per lpf Ur Culture Indicated? NO (NO) Urine Creatinine 90 mg/dL Urine Sodium 43.4 mEq/L Exam - Constitutional Vitals: Temp Pulse Resp BP Pulse Ox 98 F 97 16 156/87 94 09/22/17 07:00 09/22/17 07:00 09/22/17 07:00 09/22/17 07:00 09/22/17 07:00 General appearance: cooperative, no acute distress - Head Head exam: Present: atraumatic, normocephalic - Respiratory Respiratory exam: Present: CTAB - Cardiovascular Cardiovascular exam: Present: RRR, +S1, +S2 - GI/Abdominal GI/Abdominal exam: Present: normal bowel sounds, soft - Extremities Exam Additional comments: Bilateral lower extremity venous stasis with 1+ pitting edema symmetric. Left foot is wrapped without noticeable drainage. Left heel ulcer demonstrated healing tissue, no surrounding erythema or edema or significant drainage. Nontender to palpation around the ulcer site. Consult Discharge Plan - Plan Referrals: Sha Ruiz MD [Primary Care Provider] - - Attending Attestation I examined this patient and my medical decision-making was reviewed with the Resident Physician. I agree with the documented findings, disposition and treatment plan as described except to the extent set forth below. At this point, continue zosyn. on discharge may switch patient to: 1. keflex 500 mg q8 hrs for now, if CrCl goes under 29, will dose adjust to 250mg q8hrs. 2. Amoxicillin 500 mg q8hrs, if CrCl goes under 29 will switch to 500 q12hrs. duration of treatment 14 days (through 10/02/17) tight glucose control. the reason why we didn't use bactrim is because of his kidney function and concern for VICKI. Patient very worried about his kidneys. Ideally we wont use to beta lactams to treat but we felt that it's a better option from bactrim/ amoxicillin combination. monitor kidney function closely
[2017-09-22 09:26] LABS: Basophils % 0.3 %; Eosinophils # 0.3 K/mcL (0.0-0.6); Eosinophils % 2.7 %; Hematocrit 30.3 % (37.5-50.1); Hemoglobin 9.5 g/dL (12.9-16.9); Immature Granulocytes % 1.1 % (0-4); Lymphocytes # 0.9 K/mcL (0.6-4.6); Lymphocytes % 9.1 %; Mean Corpuscular HGB Conc 31.4 g/dL (31.6-35.5); Mean Corpuscular Hemoglobin 27.4 pg (28.0-33.3); Mean Corpuscular Volume 87.3 fL (83.0-100.0); Mean Platelet Volume 9.4 fL (9.4-12.4); Monocytes # 0.9 K/mcL (0.0-1.3); Monocytes % 8.5 %; Neutrophils # 7.8 K/mcL (1.6-8.9); Platelet Count 261 K/mcL (140-400); Red Blood Count 3.47 M/mcL (4.19-5.50); Red Cell Distribution Width 13.8 % (11.5-14.5); Segmented Neutrophils % 78.3 %
[2017-09-22 09:45] LABS: Calcium 8.8 mg/dL (8.6-10.3); Potassium 4.4 mEq/L (3.5-5.1)
--- NOTE | 2017-09-22 11:54 | Internal Med Progress Note ---
<Manuel Phillips - Last Filed: 09/22/17 11:42> Date of Encounter: 09/22/17 Time of Encounter: 11:25 - Assessment and plan (1) Diabetic ulcer of left foot Current Visit: No Status: Acute Assessment and plan: Known diabetic neuropathy and chronic left heel ulcer represented with ulceration and presence of animal hair and rocks with some foul-smelling drainage. He was started on Zyvox, Zosyn, levaquin, and flagyl Zyvox, levaquin, and flagyl previously stopped Currently on Zosyn day 6 White blood cell count has improved and is within normal limits today Podiatric evaluation noted, debridement done at the bedside and sent for culture Wound culture shows proteus mirablis, E. coli, and enterococcus MRI shows no osteomyelitis Continue wound care as recommended by podiatry Blood cultures 2 negative Infectious disease consulted and appreciate recommendations for continued antibiotics Podiatry following an recommend continued wound care, appreciate recommendations Qualifiers: Diabetic foot ulcer location: heel Diabetes mellitus type: type 2 Non- pressure ulcer stage: unspecified non-pressure ulcer stage Qualified Code(s): E11.621 - Type 2 diabetes mellitus with foot ulcer; L97.429 - Non-pressure chronic ulcer of left heel and midfoot with unspecified severity; L97.429 - Non- pressure chronic ulcer of left heel and midfoot with unspecified severity; L97.429 - Non-pressure chronic ulcer of left heel and midfoot with unspecified severity; L97.429 - Non-pressure chronic ulcer of left heel and midfoot with unspecified severity (2) Acute kidney injury superimposed on chronic kidney disease Current Visit: Yes Status: Acute Assessment and plan: baseline cr of 1.7, presented with 2.67 Creatinine today was 3.4 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 Creatinine slowly worsening from 2.67 her presentation at 3.4 despite continued IV hydration and avoidance of nephrotoxins Nephrology consulted to help address his acute kidney injury We will obtain urine eosinophils Continue gentle IV hydration with NS at 75 ml/hr Strict I/Os Avoid nephrotoxins including vancomycin (3) Diabetes mellitus type 2, insulin dependent Current Visit: No Status: Chronic Assessment and plan: Patient has history of diabetes type 2, insulin-dependent Continue insulin sliding scale Continue Levemir ADA diet (4) DVT prophylaxis Current Visit: No Status: Acute Assessment and plan: 5000 units heparin subcutaneous 3 times a day (5) Essential hypertension Current Visit: No Status: Chronic Assessment and plan: Stable, but slightly high around 150s systolic Continue to monitor and will adjust medications if needed Continue home medications (6) Chronic venous stasis dermatitis of both lower extremities Current Visit: Yes Status: Acute (7) Morbid obesity with BMI of 50.0-59.9, adult Current Visit: Yes Status: Acute Assessment and plan: Consider debt counselor consult - Subjective Interval history: Patient reports he is doing well today. He has no concerns/complaints, except for his kidneys. He is concerned because of his previous chronic kidney disease and acute kidney injury requiring dialysis 1 year ago. Patient denies fever/chills, denies shortness of breath, denies cough, denies chest pain, he reports that he is urinating well and having good output. He denies hematuria or dysuria. - Constitutional Vitals: Temp Pulse Resp BP Pulse Ox 98 F 97 16 156/87 94 09/22/17 07:00 09/22/17 07:00 09/22/17 07:00 09/22/17 07:00 09/22/17 07:00 General appearance: Present: cooperative, A&O X 3, morbidly obese, pleasant, no acute distress, answers questions appropriately Exam: General: Cooperative, pleasant, no acute distress, alert and oriented 3, answers questions appropriately HEENT: Normocephalic, atraumatic, neck supple, trachea midline, Conjunctiva pink , sclera anicteric, oral mucosa moist Respiratory: No accessory muscle usage, clear to auscultation bilaterally, no wheezes/rhonchi/rales appreciated Cardiovascular: Regular rate and rhythm, S1 and S2 present, no murmurs/rubs/ gallops/clicks appreciated GI/abdominal: Nondistended, nontender, soft, normal bowel sounds, no peritoneal signs Extremities: No calf tenderness, noncyanotic, bilateral non-pitted edema present , previously amputation of digits 3, 4, 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, bandage in place currently over heel ulcer, warm Neurological: Alert and oriented 3, no facial droop, no focal deficits Skin: Dry, intact, normal color Internal Medicine: Result - Labs CBC & Chem 7: 09/22/17 08:48 09/22/17 08:48 Labs: Short CBC 09/22/17 Range/Units 08:48 WBC 10.0 (4.3-11.1) K/mcL Hgb 9.5 L (12.9-16.9) g/dL Hct 30.3 L (37.5-50.1) % Plt Count 261 (140-400) K/mcL Neutrophils # 7.8 (1.6-8.9) K/mcL BMP 09/22/17 08:48 Sodium 129 L Potassium 4.4 Chloride 102 Carbon Dioxide 18 L BUN 31 H Creatinine 3.40 H Glucose 184 H Calcium 8.8 - ABG Interpretation ABG results: PT/INR, D-dimer PT 13.0 Seconds (9.4-12.1) H 09/17/17 05:43 Consult Discharge Plan - Plan Referrals: Sha Ruiz MD [Primary Care Provider] - <Denis Barry H - Last Filed: 09/22/17 15:42> Date of Encounter: 09/22/17 - Constitutional Vitals: Temp Pulse Resp BP Pulse Ox 98.1 F 93 18 123/70 95 09/22/17 12:41 09/22/17 12:41 09/22/17 12:41 09/22/17 12:41 09/22/17 12:41 Internal Medicine: Result - Labs CBC & Chem 7: 09/22/17 08:48 09/22/17 08:48 Labs: Short CBC 09/22/17 Range/Units 08:48 WBC 10.0 (4.3-11.1) K/mcL Hgb 9.5 L (12.9-16.9) g/dL Hct 30.3 L (37.5-50.1) % Plt Count 261 (140-400) K/mcL Neutrophils # 7.8 (1.6-8.9) K/mcL BMP 09/22/17 08:48 Sodium 129 L Potassium 4.4 Chloride 102 Carbon Dioxide 18 L BUN 31 H Creatinine 3.40 H Glucose 184 H Calcium 8.8 - ABG Interpretation ABG results: PT/INR, D-dimer PT 13.0 Seconds (9.4-12.1) H 09/17/17 05:43 - Attending Attestation continue Zosyn start IVF, send eosinophils in urine I examined this patient and my medical decision-making was reviewed with the Resident Physician. I agree with the documented findings, disposition and treatment plan as described except to the extent set forth below.
--- NOTE | 2017-09-22 12:42 | Podiatry Progress Note ---
Date of Encounter: 09/22/17 Time of Encounter: 11:45 - Assessment and Plan (1) VICKI (acute kidney injury) Current Visit: No Status: Acute Creatinine: 3.40. Nephrology following. (2) Diabetic ulcer of left foot Current Visit: No Status: Acute Unstageable diabetic ulcer to left heel. Small amount of serous drainage observed to dressing, ulcer is malodorous. Upon reviewing xrays and MRI there is no suspected bone involvement of the left calcaneus WBC: 10.0, ESR: 91, CRP: 102 Microbiology 09/16/17 20:37 Peripheral Venipuncture Blood Culture - Final No growth. 09/16/17 19:49 Peripheral Venipuncture Blood Culture - Final No growth. 09/17/17 11:50 Left Foot Wound Culture - Final Proteus mirabilis Escherichia coli Enterococcus species Plan: Continue wound care as ordered. Infectious Disease consulted and following. Will continue to follow patient closely. Glucose control to promote wound healing. Qualifiers: Diabetic foot ulcer location: heel Diabetes mellitus type: type 2 Non- pressure ulcer stage: unspecified non-pressure ulcer stage Qualified Code(s): E11.621 - Type 2 diabetes mellitus with foot ulcer; L97.429 - Non-pressure chronic ulcer of left heel and midfoot with unspecified severity; L97.429 - Non- pressure chronic ulcer of left heel and midfoot with unspecified severity; L97.429 - Non-pressure chronic ulcer of left heel and midfoot with unspecified severity; L97.429 - Non-pressure chronic ulcer of left heel and midfoot with unspecified severity Subjective Interval history: Patient is sitting up in bed with dressing intact to left foot. Patient denies any pain. No c/o fever or chills. Patient states he is worried about his kidney function due to it going up. Patient states overall he feels good. Objective - Vital Signs Vital Signs: Vital Signs Temp Pulse Resp BP Pulse Ox 09/22/17 07:00 98 F 97 16 156/87 94 09/22/17 00:42 97.7 F 95 16 160/81 92 09/21/17 20:26 97.5 F L 85 16 134/79 95 09/21/17 16:32 98.1 F 88 17 150/82 93 Intake and Output 09/21/17 09/22/17 09/22/17 23:59 07:59 15:59 Intake Total 100 / 100 100 / 100 Output Total 900 / 900 1400 / 1400 Balance -800 / -800 -1300 / -1300 Intake: IV Fluids 100 / 100 100 / 100 Zosyn 3.375 GM In 0.9 % Sodium 100 / 100 100 / 100 Chloride (Mini-Bag +) 100 ML @ 25 mls/hr IVPB Q8H [facility] Rx#: [id number] Output: Urine 900 / 900 1400 / 1400 Other: Meal Dinner Percent of Meal Consumed 100% Blood Glucose* 191 169 - Exam Exam: General appearance: alert awake oriented X 3. Calm and pleasant, no acute distress.. Vascular: non palpable pedal pulses, foot is warm to touch, CFT is immediate, No evidence of cyanosis, pallor or rubor, Edema graded at 1+/4, No calf pain with manual compression. Neurologic: Sensation intact with light touch to foot. . Ulcer: Unstageable heel ulcer to the plantar aspect of the left foot measuring 4 cm in length x 3 cm in width x 0.3 cm in depth base of wound with yellow and harden fibrous tissue, malodorous, no fluctuance, no warmth, no pus. Small amount of serous drainage observed to dressing. - Lab Result Diagrams: 09/22/17 08:48 09/22/17 08:48 Labs: Abnormal lab results RBC 3.47 M/mcL (4.19-5.50) L 09/22/17 08:48 Hgb 9.5 g/dL (12.9-16.9) L 09/22/17 08:48 Hct 30.3 % (37.5-50.1) L 09/22/17 08:48 MCH 27.4 pg (28.0-33.3) L 09/22/17 08:48 MCHC 31.4 g/dL (31.6-35.5) L 09/22/17 08:48 ESR 91 mm/hr (0-10) H 09/17/17 11:48 PT 13.0 Seconds (9.4-12.1) H 09/17/17 05:43 Sodium 129 mEq/L (136-145) L 09/22/17 08:48 Carbon Dioxide 18 mEq/L (23-29) L 09/22/17 08:48 BUN 31 mg/dL (6-20) H 09/22/17 08:48 Creatinine 3.40 mg/dL (0.70-1.30) H 09/22/17 08:48 Est GFR ( Amer) 23 (> 60) L 09/22/17 08:48 Est GFR (Non-Af Amer) 19 (> 60) L 09/22/17 08:48 Glucose 184 mg/dL (70-105) H 09/22/17 08:48 POC Glucose 169 (58-89) H 09/22/17 08:14 Hemoglobin A1c 9.4 % (-5.6) H 09/21/17 01:55 Calculated Osmolality 279 (280-300) L 09/22/17 08:48 Magnesium 1.5 mg/dL (1.6-2.6) L 09/17/17 05:43 Alkaline Phosphatase 107 Units/L (34-104) H 09/21/17 08:54 C-Reactive Protein 102 mg/L (Less than 10) H 09/17/17 11:48 Albumin 3.2 g/dL (3.5-5.7) L 09/21/17 08:54 Albumin/Globulin Ratio 1.0 (1.1-2.2) L 09/21/17 08:54 Urine Protein 100 mg/dL (Neg-Trace) H 09/20/17 21:00 Urine Glucose (UA) 100 mg/dL (Normal) H 09/20/17 21:00 Microbiology, Last 48 Hours 09/17/17 11:50 Wound Culture - Final Left Foot Proteus mirabilis Escherichia coli Enterococcus species Consult Discharge Plan - Plan Referrals: Sha Ruiz MD [Primary Care Provider] -
[2017-09-22] MEDS: 0.9 % Sodium Chloride 1,000 ML IVC SCH (12:50)
--- NOTE | 2017-09-22 18:47 | Nephrology Progress Note ---
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 UOP noted at 1600cc in the past 24hrs, continue adequate fluid intake (2) CKD (chronic kidney disease) stage 3, GFR 30-59 ml/min Status: Acute (3) Foot ulcer Status: Acute Qualifiers: Laterality: left Non-pressure ulcer stage: unspecified non-pressure ulcer stage Qualified Code(s): L97.529 - Non-pressure chronic ulcer of other part of left foot with unspecified severity Subjective Interval history: Pt seen and examined Objective - Vital Signs Vital signs: Vital Signs Temp Pulse Resp BP Pulse Ox 09/22/17 18:36 97.7 F 89 15 130/74 94 09/22/17 12:41 98.1 F 93 18 123/70 95 09/22/17 07:00 98 F 97 16 156/87 94 09/22/17 00:42 97.7 F 95 16 160/81 92 09/21/17 20:26 97.5 F L 85 16 134/79 95 Intake and Output 09/22/17 09/22/17 09/22/17 07:59 15:59 23:59 Intake Total 100 / 100 340 / 340 360 / 360 Output Total 1400 / 1400 0 / 0 0 / 0 Balance -1300 / -1300 340 / 340 360 / 360 Intake: IV Fluids 100 / 100 100 / 100 Zosyn 3.375 GM In 0.9 % Sodium 100 / 100 100 / 100 Chloride (Mini-Bag +) 100 ML @ 25 mls/hr IVPB Q8H [facility] Rx#: [id number] Oral 240 / 240 360 / 360 Output: Urine 1400 / 1400 0 / 0 0 / 0 Other: Meal Lunch Dinner Percent of Meal Consumed 100% 100% Blood Glucose* 194 191 - General Appearance General appearance: Present: chronically ill EENT: Present: ATNC, mucous membranes moist Neck: Present: no JVD, supple Respiratory: Present: clear Cardiology: Present: edema, normal S1, normal S2 Gastrointestinal: Present: no tenderness, no guarding Integumentary: Present: warm and dry Neurologic: Present: no focal deficit Musculoskeletal: Present: no deformities Psychiatric: Present: mood/affect appropriate - Lab 09/24/17 06:45 09/24/17 06:45 Most recent lab results Calcium 8.8 mg/dL (8.6-10.3) 09/22/17 08:48 Magnesium 1.5 mg/dL (1.6-2.6) L 09/17/17 05:43 Urine Creatinine 90 mg/dL 09/20/17 21:00 Urine Sodium 43.4 mEq/L 09/20/17 21:00 Consult Discharge Plan - Plan Additional Instructions: Please return to ER if worsening foot ulcer, development of warmth, redness, or pain at site of recent debridement. Please take all medications as prescribed: Continue previous home medications Amoxicillin 500 mg 3 times a day for 2 weeks Omnicef 300 mg twice a day for 2 weeks Continue to apply Santyl cream per podiatry recommendations Repeat lab work in 1 week to assess renal function Follow-up with her PCP, ID, nephrology, and podiatry Referrals: [facility] [Other] - 10/01/17 3:15 pm Alexandra Phelps MD [Partnered Physician] - 10/21/17 11:00 am (First appt. available. Patient will be new to the office. Thank you) Kassandra Alcazar MD [Partnered Physician] - 10/08/17 2:00 pm Sha Ruiz MD [Primary Care Provider] - 09/26/17 10:00 am Prescriptions: Amoxicillin 500 mg PO TID #42 tablet Cefdinir [Omnicef] 300 mg PO BID #28 capsule Collagenase Oint [Santyl] 1 appl TP BID #1 tube
[2017-09-22] MEDS: Insulin DETEMIR 100 UNIT/ML X5UNITS SQ SCH (21:31)
[2017-09-23] MEDS: *HR* Heparin 5,000 UNIT/ML VIAL SQ SCH ×3 (01:02→16:18)
[2017-09-23] MEDS ORDERED: Melatonin 3 MG TABLET PO ONE (03:40)
[2017-09-23 05:26] LABS: Basophils % 0.4 %; Eosinophils # 0.2 K/mcL (0.0-0.6); Eosinophils % 2.6 %; Hematocrit 28.2 % (37.5-50.1); Hemoglobin 8.7 g/dL (12.9-16.9); Immature Granulocytes % 0.9 % (0-4); Lymphocytes % 10.4 %; Mean Corpuscular HGB Conc 30.9 g/dL (31.6-35.5); Mean Corpuscular Volume 87.6 fL (83.0-100.0); Mean Platelet Volume 9.3 fL (9.4-12.4); Monocytes # 0.8 K/mcL (0.0-1.3); Monocytes % 9.1 %; Neutrophils # 7.1 K/mcL (1.6-8.9); Platelet Count 252 K/mcL (140-400); Red Blood Count 3.22 M/mcL (4.19-5.50); Segmented Neutrophils % 76.6 %
[2017-09-23 05:42] LABS: Calcium 8.8 mg/dL (8.6-10.3); Phosphorous 3.6 mg/dL (2.7-4.5); Potassium 4.3 mEq/L (3.5-5.1)
[2017-09-23] MEDS ORDERED: 0.9 % Sodium Chloride Mini Bag 100 ML ONE (06:30)
[2017-09-23] MEDS: hydrALAZINE 25 MG TABLET PO SCH ×3 (06:43→22:17)
[2017-09-23] MEDS: Piperacillin/Tazobactam 3.375 GM in 0.9 % Sodium Chloride Mini Bag 100 ML IVPB SCH ×3 (06:43→22:18)
[2017-09-23] MEDS: 0.9 % Sodium Chloride 1,000 ML IVC SCH (06:44)
--- NOTE | 2017-09-23 07:20 | Infectious Disease Progress No ---
Date of Encounter: 09/23/17 Time of Encounter: 07:20 - Assessment and Plan (1) Cellulitis Current Visit: Yes Status: Acute Cellulitis of the left foot- significantly improved. - Causative organisms including Proteus Mirabilis, Escherichia coli, enterococcus species - demonstrates sensitivity to current antibiotic coverage to Zosyn 3.375 g IV every 8 hours - Enterococcus species sensitive to vancomycin, Ampicillin (resistant to Tetracyclines) no need to add Zyvox at this time. - Creatinine clearance in the low 30's - MRI performed 09/17/2017 was negative for osteomyelitis or fluid collection or abscess. At this point, continue zosyn. on discharge may switch patient to: 1. keflex 500 mg q8 hrs for now, if CrCl goes under 29, will dose adjust to 250mg q8hrs. 2. Amoxicillin 500 mg q8hrs, if CrCl goes under 29 will switch to 500 q12hrs. duration of treatment 14 days (through 10/02/17) tight glucose control. the reason Bactrim s not used is because of his kidney function and concern for VICKI. Patient very worried about his kidneys. Ideally we wont use two beta lactams to treat but we felt that it's a better option from bactrim/amoxicillin combination. monitor kidney function closely Qualifiers: Site of cellulitis: extremity Site of cellulitis of extremity: lower extremity Laterality: left Qualified Code(s): L03.116 - Cellulitis of left lower limb (2) Foot ulcer due to secondary DM Current Visit: Yes Status: Acute Patient presented with 7 mm diabetic foot ulcer to the left heel, MRI does not demonstrate any bony involvement. 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 - Wound improving. - Continue wound management per podiatry. (3) Acute kidney injury superimposed on chronic kidney disease Current Visit: Yes Status: Acute Current Creatinine 3.36, minor improvement over the past two days. Baseline around 2.0 GFR 20 - Hx of significant deterioration in renal function in 2016 requiring short term dialysis. Creatinine clearance: 41 Suspected multifactoral with poorly controlled DM, current left heel ulcer and cellulites. We will try to avoid antibiotics that could be harsh on the kidneys (4) Morbid (severe) obesity due to excess calories Current Visit: Yes Status: Acute BMI 55.5 (5) Chronic venous stasis dermatitis of both lower extremities Current Visit: Yes Status: Acute Stable, may contribute in poor healing of LE wounds and infections. (6) Severe sepsis Current Visit: Yes Status: Acute On admission Mr. Gutierres met 2 SIRS criteria including leukocytosis and tachycardia - He demonstrates end organ damage (acute kidney injury) with worsening renal function suspected secondary to left lower extremity cellulitis - Tachycardia and Leukocytosis now resolved with current therapy. (7) Diabetes mellitus Current Visit: Yes Status: Chronic Insulin dependent diabetic, uncontrolled diabetes with hemoglobin A1c of 10 and current hyperglycemia. - Complicated by previous diabetic foot ulcers resulting in osteomyelitis and digits and metatarsal amputations. - Currently complicated by left heel ulcer - Right heel demonstrates callus and high risk for future diabetic ulcer formation. 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 Gutierres 51-year-old male seen and evaluated patient bedside this morning. He denies any pain, discomfort, fevers, chills, diaphoresis, nausea, vomiting, diarrhea, constipation, change in urinary frequency. No significant changes over night. Infect Dis PN-Objective Data - Labs CBC & Chem 7: 09/23/17 04:42 09/23/17 04:42 Labs: Laboratory Results - last 24 hr 09/22/17 09/22/17 09/22/17 08:14 08:48 08:48 WBC 10.0 RBC 3.47 L Hgb 9.5 L Hct 30.3 L MCV 87.3 MCH 27.4 L MCHC 31.4 L RDW 13.8 Plt Count 261 MPV 9.4 Immature Gran % 1.1 Seg Neutrophils % 78.3 Lymphocytes % 9.1 Monocytes % 8.5 Eosinophils % 2.7 Basophils % 0.3 Neutrophils # 7.8 Lymphocytes # 0.9 Monocytes # 0.9 Eosinophils # 0.3 Basophils # 0.0 Sodium 129 L Potassium 4.4 Chloride 102 Carbon Dioxide 18 L BUN 31 H Creatinine 3.40 H Est GFR ( Amer) 23 L Est GFR (Non-Af Amer) 19 L BUN/Creatinine Ratio 9 Glucose 184 H POC Glucose 169 H Calculated Osmolality 279 L Calcium 8.8 Phosphorus Magnesium 09/22/17 09/22/17 09/23/17 16:36 20:31 04:42 WBC 9.3 RBC 3.22 L Hgb 8.7 L Hct 28.2 L MCV 87.6 MCH 27.0 L MCHC 30.9 L RDW 14.0 Plt Count 252 MPV 9.3 L Immature Gran % 0.9 Seg Neutrophils % 76.6 Lymphocytes % 10.4 Monocytes % 9.1 Eosinophils % 2.6 Basophils % 0.4 Neutrophils # 7.1 Lymphocytes # 1.0 Monocytes # 0.8 Eosinophils # 0.2 Basophils # 0.0 Sodium Potassium Chloride Carbon Dioxide BUN Creatinine Est GFR ( Amer) Est GFR (Non-Af Amer) BUN/Creatinine Ratio Glucose POC Glucose 191 H 170 H Calculated Osmolality Calcium Phosphorus Magnesium 09/23/17 04:42 WBC RBC Hgb Hct MCV MCH MCHC RDW Plt Count MPV Immature Gran % Seg Neutrophils % Lymphocytes % Monocytes % Eosinophils % Basophils % Neutrophils # Lymphocytes # Monocytes # Eosinophils # Basophils # Sodium 133 L Potassium 4.3 Chloride 106 Carbon Dioxide 18 L BUN 31 H Creatinine 3.36 H Est GFR ( Amer) 24 L Est GFR (Non-Af Amer) 20 L BUN/Creatinine Ratio 9 Glucose 147 H POC Glucose Calculated Osmolality 285 Calcium 8.8 Phosphorus 3.6 Magnesium 2.0 Cultures: Cultures 09/17/17 11:50 Wound Culture - Final Left Foot Proteus mirabilis Escherichia coli Enterococcus species Serology 09/20/17 09/20/17 Range/Units 21:00 21:00 Urine Color Yellow (Yellow) Urine Clarity Clear (Clear) Urine pH 6.0 (5.0-8.0) pH Units Ur Specific [place] 1.018 (1.010-1.025) Urine Protein 100 H (Neg-Trace) mg/dL Urine Glucose (UA) 100 H (Normal) mg/dL Urine Ketones Negative (Negative) mg/dL Urine Blood Negative (Negative) Urine Nitrite Negative (Negative) Urine Bilirubin Negative (Negative) Urine Urobilinogen Normal (Normal) mg/dL Ur Leukocyte Esterase Negative (Negative) Urine Microscopic RBC 0-3 (0-3) per hpf Urine Microscopic WBC 0-3 (0-3) per hpf Ur Eosinophil Smear 0 (None Seen) % Ur Squamous Epith Cells Few (None-Few) per lpf Urine Bacteria None Seen (None-Few) per hpf Hyaline Casts None Seen (None-Few) per lpf Ur Culture Indicated? NO (NO) Urine Creatinine 90 mg/dL Urine Sodium 43.4 mEq/L Exam - Constitutional Vitals: Temp Pulse Resp BP Pulse Ox 98.1 F 72 15 128/69 94 09/23/17 04:19 09/23/17 04:19 09/23/17 04:19 09/23/17 04:19 09/23/17 04:19 - Head Head exam: Present: atraumatic, normocephalic - ENT ENT exam: Present: mucous membranes moist - Cardiovascular Cardiovascular exam: Present: RRR, +S1, +S2 - GI/Abdominal GI/Abdominal exam: Present: normal bowel sounds, soft - Additional findings Additional findings: Bilateral lower extremity venous stasis with 1+ pitting edema symmetric. Left foot is wrapped without noticeable drainage. Left heel ulcer demonstrated healing tissue, no surrounding erythema or edema or significant drainage. Nontender to palpation around the ulcer site. Consult Discharge Plan - Plan Referrals: Sha Ruiz MD [Primary Care Provider] -
[2017-09-23] MEDS: NIFEdipine XL (24 HR) 30 MG TAB.ER.24 PO SCH (08:59)
[2017-09-23] MEDS: Aspirin 81 MG TAB.CHEW PO SCH (08:59)
[2017-09-23] MEDS: Insulin LISPRO 300 UNITS/3 ML VIAL SQ SCH ×4 (09:00→20:37)
--- NOTE | 2017-09-23 09:32 | Internal Med Progress Note ---
<Manuel Phillips - Last Filed: 09/23/17 16:22> Date of Encounter: 09/23/17 Time of Encounter: 08:45 - Assessment and plan (1) Diabetic ulcer of left foot Current Visit: No Status: Acute Assessment and plan: Known diabetic neuropathy and chronic left heel ulcer represented with ulceration and presence of animal hair and rocks with some foul-smelling drainage. He was started on Zyvox, Zosyn, levaquin, and flagyl Zyvox, levaquin, and flagyl previously stopped Currently on Zosyn day 7 White blood cell count has improved and is within normal limits Podiatric evaluation noted, debridement done at the bedside and sent for culture Wound culture shows proteus mirablis, E. coli, and enterococcus MRI does not show osteomyelitis Continue wound care as recommended by podiatry Blood cultures 2 negative Infectious disease consulted and appreciate recommendations for continued antibiotics Podiatry following an recommend continued wound care, appreciate recommendations Qualifiers: Diabetic foot ulcer location: heel Diabetes mellitus type: type 2 Non- pressure ulcer stage: unspecified non-pressure ulcer stage Qualified Code(s): E11.621 - Type 2 diabetes mellitus with foot ulcer; L97.429 - Non-pressure chronic ulcer of left heel and midfoot with unspecified severity; L97.429 - Non- pressure chronic ulcer of left heel and midfoot with unspecified severity; L97.429 - Non-pressure chronic ulcer of left heel and midfoot with unspecified severity; L97.429 - Non-pressure chronic ulcer of left heel and midfoot with unspecified severity (2) Acute kidney injury superimposed on chronic kidney disease Current Visit: Yes Status: Acute Assessment and plan: baseline cr of 1.7, presented with 2.67 Creatinine stable/mildly improved today at 3.36 (was 3.4) 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 Creatinine slowly worsening from 2.67 at presentation despite continued IV hydration and avoidance of nephrotoxins Nephrology consulted to help address his acute kidney injury We will obtain urine eosinophils Will stop continued IVF Strict I/Os Avoid nephrotoxins including vancomycin (3) Diabetes mellitus type 2, insulin dependent Current Visit: No Status: Chronic Assessment and plan: Patient has history of diabetes type 2, insulin-dependent Continue insulin sliding scale Continue Levemir ADA diet (4) DVT prophylaxis Current Visit: No Status: Acute Assessment and plan: 5000 units heparin subcutaneous 3 times a day (5) Essential hypertension Current Visit: No Status: Chronic Assessment and plan: Stable, but slightly high around 130s systolic Continue to monitor and will adjust medications if needed Continue home medications (6) Chronic venous stasis dermatitis of both lower extremities Current Visit: Yes Status: Acute (7) Morbid obesity with BMI of 50.0-59.9, adult Current Visit: Yes Status: Acute Assessment and plan: Consider cork insulator consult - Subjective Interval history: Patient reports feeling about the same as he did yesterday, with the exception of new-onset back pain. He states the pain is located bilaterally in his lower back and is without radiation. He states the pain gets better when he sits up but it is causing him to have difficulty sleeping. He has had pain like this previously during his hospitalization one year ago and thinks it is due to his bed. He denies fever/chills, denies nausea, denies shortness of breath, denies chest pain. He states he is still urinating well without pain or blood in his urine. - Constitutional Vitals: Temp Pulse Resp BP Pulse Ox 97.4 F L 78 17 130/68 94 09/23/17 07:50 09/23/17 07:50 09/23/17 07:50 09/23/17 07:50 09/23/17 07:50 General appearance: Present: cooperative, A&O X 3, morbidly obese, pleasant, no acute distress, answers questions appropriately Exam: General: Cooperative, pleasant, no acute distress, alert and oriented 3, answers questions appropriately HEENT: Normocephalic, atraumatic, neck supple, trachea midline, Conjunctiva pink , sclera anicteric, oral mucosa moist Respiratory: No accessory muscle usage, clear to auscultation bilaterally, no wheezes/rhonchi/rales appreciated Cardiovascular: Regular rate and rhythm, S1 and S2 present, no murmurs/rubs/ gallops/clicks appreciated GI/abdominal: Nondistended, nontender, soft, normal bowel sounds, no peritoneal signs, no CVA tenderness Extremities: No calf tenderness, bilateral non-pitted edema present, previously amputation of digits 3, 4, 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, bandage in place currently over heel ulcer, warm Neurological: Alert and oriented 3, no facial droop, no focal deficits Skin: Dry, intact, normal color Internal Medicine: Result - Labs CBC & Chem 7: 09/23/17 04:42 09/23/17 04:42 Labs: Short CBC 09/22/17 09/23/17 Range/Units 08:48 04:42 WBC 10.0 9.3 (4.3-11.1) K/mcL Hgb 9.5 L 8.7 L (12.9-16.9) g/dL Hct 30.3 L 28.2 L (37.5-50.1) % Plt Count 261 252 (140-400) K/mcL Neutrophils # 7.8 7.1 (1.6-8.9) K/mcL BMP 09/22/17 09/23/17 08:48 04:42 Sodium 129 L 133 L Potassium 4.4 4.3 Chloride 102 106 Carbon Dioxide 18 L 18 L BUN 31 H 31 H Creatinine 3.40 H 3.36 H Glucose 184 H 147 H Calcium 8.8 8.8 - ABG Interpretation ABG results: PT/INR, D-dimer PT 13.0 Seconds (9.4-12.1) H 09/17/17 05:43 Consult Discharge Plan - Plan Referrals: Sha Ruiz MD [Primary Care Provider] - <Denis Barry H - Last Filed: 09/23/17 16:35> Date of Encounter: 09/23/17 - Assessment and plan (1) Diabetic ulcer of left foot Current Visit: No Status: Acute Qualifiers: Diabetic foot ulcer location: heel Diabetes mellitus type: type 2 Non- pressure ulcer stage: unspecified non-pressure ulcer stage Qualified Code(s): E11.621 - Type 2 diabetes mellitus with foot ulcer; L97.429 - Non-pressure chronic ulcer of left heel and midfoot with unspecified severity; L97.429 - Non- pressure chronic ulcer of left heel and midfoot with unspecified severity; L97.429 - Non-pressure chronic ulcer of left heel and midfoot with unspecified severity; L97.429 - Non-pressure chronic ulcer of left heel and midfoot with unspecified severity (2) Acute kidney injury superimposed on chronic kidney disease Current Visit: Yes Status: Acute (3) Diabetes mellitus type 2, insulin dependent Current Visit: No Status: Chronic (4) DVT prophylaxis Current Visit: No Status: Acute (5) Essential hypertension Current Visit: No Status: Chronic (6) Chronic venous stasis dermatitis of both lower extremities Current Visit: Yes Status: Acute (7) Morbid obesity with BMI of 50.0-59.9, adult Current Visit: Yes Status: Acute - Constitutional Vitals: Temp Pulse Resp BP Pulse Ox 98.0 F 80 15 128/79 96 09/23/17 15:00 09/23/17 15:00 09/23/17 15:00 09/23/17 15:00 09/23/17 15:00 Internal Medicine: Result - Labs CBC & Chem 7: 09/23/17 04:42 09/23/17 04:42 Labs: Short CBC 09/23/17 Range/Units 04:42 WBC 9.3 (4.3-11.1) K/mcL Hgb 8.7 L (12.9-16.9) g/dL Hct 28.2 L (37.5-50.1) % Plt Count 252 (140-400) K/mcL Neutrophils # 7.1 (1.6-8.9) K/mcL BMP 09/23/17 04:42 Sodium 133 L Potassium 4.3 Chloride 106 Carbon Dioxide 18 L BUN 31 H Creatinine 3.36 H Glucose 147 H Calcium 8.8 - ABG Interpretation ABG results: PT/INR, D-dimer PT 13.0 Seconds (9.4-12.1) H 09/17/17 05:43 - Attending Attestation may switch to oral antibiotics upon discharge I examined this patient and my medical decision-making was reviewed with the Resident Physician. I agree with the documented findings, disposition and treatment plan as described except to the extent set forth below.
[2017-09-23] MEDS ORDERED: 0.9 % Sodium Chloride 1,000 ML IVC SCH (09:45)
--- NOTE | 2017-09-23 12:28 | Nephrology Progress Note ---
<Bigg Ruffcarlyn Carlton - Last Filed: 09/23/17 12:29> Date of Encounter: 09/23/17 Time of Encounter: 12:26 - Assessment and Plan (1) VICKI (acute kidney injury) Status: Acute Kidney function slightly improved-Scr 3.36 GFR 20 No acute indication for SENIOR JAVA PROGRAMMER at this time Good UOP 1400ml Avoid nephrotoxins if possible (2) CKD (chronic kidney disease) stage 3, GFR 30-59 ml/min Status: Acute see above (3) Foot ulcer Status: Acute per primary team Qualifiers: Laterality: left Non-pressure ulcer stage: unspecified non-pressure ulcer stage Qualified Code(s): L97.529 - Non-pressure chronic ulcer of other part of left foot with unspecified severity Subjective Principal diagnosis: VICKI, CKD stage 3, Foot ulcer Interval history: Patient seen and examined. c/o not being able to sleep well here in hospital Objective - Vital Signs Vital signs: Vital Signs Temp Pulse Resp BP Pulse Ox 09/23/17 11:25 97.4 F L 86 16 149/80 94 09/23/17 07:50 97.4 F L 78 17 130/68 94 09/23/17 04:19 98.1 F 72 15 128/69 94 09/22/17 20:45 94 09/22/17 18:36 97.7 F 89 15 130/74 94 09/22/17 12:41 98.1 F 93 18 123/70 95 Intake and Output 09/22/17 09/23/17 09/23/17 23:59 07:59 15:59 Intake Total 460 / 460 1100 / 1100 220 / 220 Output Total 0 / 0 1175 / 1175 0 / 0 Balance 460 / 460 -75 / -75 220 / 220 Intake: IV Fluids 100 / 100 1100 / 1100 100 / 100 0.9 % Sodium Chloride 1,000 ML 1000 / 1000 @ 75 mls/hr IVC .[id number] JAY Rx #:[id number] Zosyn 3.375 GM In 0.9 % Sodium 100 / 100 100 / 100 100 / 100 Chloride (Mini-Bag +) 100 ML @ 25 mls/hr IVPB Q8H JAY Rx#: [id number] Oral 360 / 360 0 / 0 120 / 120 Output: Urine 0 / 0 1175 / 1175 0 / 0 Other: Meal Dinner Breakfast Percent of Meal Consumed 100% 100% Weight 170.5 kg Blood Glucose* 170 134 170 Patient Weight 09/23/17 23:59 Weight 170.5 kg - General Appearance General appearance: Present: obese EENT: Present: ATNC, mucous membranes moist, hearing intact, vision intact Neck: Present: supple Respiratory: Present: clear Cardiology: Present: edema, normal S1, normal S2 Gastrointestinal: Present: no tenderness, no guarding, obese Integumentary: Present: warm and dry Neurologic: Present: alert and oriented x3 Psychiatric: Present: mood/affect appropriate - Lab 09/23/17 04:42 09/23/17 04:42 Most recent lab results Calcium 8.8 mg/dL (8.6-10.3) 09/23/17 04:42 Phosphorus 3.6 mg/dL (2.7-4.5) 09/23/17 04:42 Magnesium 2.0 mg/dL (1.6-2.6) 09/23/17 04:42 Urine Creatinine 90 mg/dL 09/20/17 21:00 Urine Sodium 43.4 mEq/L 09/20/17 21:00 Consult Discharge Plan - Plan Additional Instructions: Please return to ER if worsening foot ulcer, development of warmth, redness, or pain at site of recent debridement. Please take all medications as prescribed: Continue previous home medications Amoxicillin 500 mg 3 times a day for 2 weeks Omnicef 300 mg twice a day for 2 weeks Continue to apply Santyl cream per podiatry recommendations Repeat lab work in 1 week to assess renal function Follow-up with her PCP, ID, nephrology, and podiatry Referrals: [facility] [Other] - 10/01/17 3:15 pm Alexandra Phelps MD [Partnered Physician] - 10/21/17 11:00 am (First appt. available. Patient will be new to the office. Thank you) Kassandra Alcazar MD [Partnered Physician] - 10/08/17 2:00 pm Sha Ruiz MD [Primary Care Provider] - 09/26/17 10:00 am Prescriptions: Amoxicillin 500 mg PO TID #42 tablet Cefdinir [Omnicef] 300 mg PO BID #28 capsule Collagenase Oint [Santyl] 1 appl TP BID #1 tube <Alexandra Phelps - Last Filed: 10/16/17 19:36> Date of Encounter: 09/23/17 - Assessment and Plan (1) VICKI (acute kidney injury) Status: Acute (2) CKD (chronic kidney disease) stage 3, GFR 30-59 ml/min Status: Acute (3) Foot ulcer Status: Acute Qualifiers: Laterality: left Non-pressure ulcer stage: unspecified non-pressure ulcer stage Qualified Code(s): L97.529 - Non-pressure chronic ulcer of other part of left foot with unspecified severity Objective - Lab 09/24/17 06:45 09/24/17 06:45 Most recent lab results Calcium 8.8 mg/dL (8.6-10.3) 09/24/17 06:45 Phosphorus 3.6 mg/dL (2.7-4.5) 09/23/17 04:42 Magnesium 2.0 mg/dL (1.6-2.6) 09/23/17 04:42 Urine Creatinine 90 mg/dL 09/20/17 21:00 Urine Sodium 43.4 mEq/L 09/20/17 21:00 - Attending Attestation I examined this patient and my medical decision-making was reviewed with the Resident Physician/TAX EVALUATOR. I agree with the documented findings, disposition and treatment plan as described except to the extent set forth below. Pt seen and examined with no new complaints. PE still siginficant for LE edema. SCr slightly improved today at 3.36, GFR 20, will monitor closely. Continue to avoid nephrotoxins if possible. continue adequate fluid intake. No acute indication for SENIOR JAVA PROGRAMMER at this point.
--- NOTE | 2017-09-23 12:44 | Podiatry Progress Note ---
Date of Encounter: 09/23/17 Time of Encounter: 12:15 - Assessment and Plan (1) VICKI (acute kidney injury) Current Visit: No Status: Acute Creatinine: 3.36. Nephrology following. (2) Diabetic ulcer of left foot Current Visit: No Status: Acute Unstageable diabetic ulcer to left heel. Small amount of serous drainage observed to dressing, ulcer is malodorous. Upon reviewing xrays and MRI there is no suspected bone involvement of the left calcaneus WBC: 9.3, ESR: 91, CRP: 102 Microbiology 09/16/17 20:37 Peripheral Venipuncture Blood Culture - Final No growth. 09/16/17 19:49 Peripheral Venipuncture Blood Culture - Final No growth. 09/17/17 11:50 Left Foot Wound Culture - Final Proteus mirabilis Escherichia coli Enterococcus species Plan: Continue wound care as ordered with Santyl ointment. Infectious Disease consulted and following. Will continue to follow patient closely. Glucose control to promote wound healing. Follow up in wound care with Dr. Lovett one week after discharge from hospital. Qualifiers: Diabetic foot ulcer location: heel Diabetes mellitus type: type 2 Non- pressure ulcer stage: unspecified non-pressure ulcer stage Qualified Code(s): E11.621 - Type 2 diabetes mellitus with foot ulcer; L97.429 - Non-pressure chronic ulcer of left heel and midfoot with unspecified severity; L97.429 - Non- pressure chronic ulcer of left heel and midfoot with unspecified severity; L97.429 - Non-pressure chronic ulcer of left heel and midfoot with unspecified severity; L97.429 - Non-pressure chronic ulcer of left heel and midfoot with unspecified severity Subjective Principal diagnosis: VICKI, CKD stage 3, Foot ulcer Interval history: Patient is sitting up in bed with dressing intact to left foot. Patient denies any pain. No c/o fever or chills. Dr. Richards at bedside discussing plan of care in regards to patients kidney function. Creatinine is slowly trending down. Patient states overall he feels good. Objective - Vital Signs Vital Signs: Vital Signs Temp Pulse Resp BP Pulse Ox 09/23/17 11:25 97.4 F L 86 16 149/80 94 09/23/17 07:50 97.4 F L 78 17 130/68 94 09/23/17 04:19 98.1 F 72 15 128/69 94 09/22/17 20:45 94 09/22/17 18:36 97.7 F 89 15 130/74 94 Intake and Output 09/22/17 09/23/17 09/23/17 23:59 07:59 15:59 Intake Total 460 / 460 1100 / 1100 220 / 220 Output Total 0 / 0 1175 / 1175 0 / 0 Balance 460 / 460 -75 / -75 220 / 220 Intake: IV Fluids 100 / 100 1100 / 1100 100 / 100 0.9 % Sodium Chloride 1,000 ML 1000 / 1000 @ 75 mls/hr IVC .[id number] JAY Rx #:[id number] Zosyn 3.375 GM In 0.9 % Sodium 100 / 100 100 / 100 100 / 100 Chloride (Mini-Bag +) 100 ML @ 25 mls/hr IVPB Q8H JAY Rx#: [id number] Oral 360 / 360 0 / 0 120 / 120 Output: Urine 0 / 0 1175 / 1175 0 / 0 Other: Meal Dinner Breakfast Percent of Meal Consumed 100% 100% Weight 170.5 kg Blood Glucose* 170 134 170 Patient Weight 09/23/17 23:59 Weight 170.5 kg - Exam Exam: General appearance: alert awake oriented X 3. Calm and pleasant, no acute distress.. Vascular: non palpable pedal pulses, foot is warm to touch, CFT is immediate, No evidence of cyanosis, pallor or rubor, Edema graded at 1+/4, No calf pain with manual compression. Neurologic: Sensation intact with light touch to foot. . Ulcer: Unstageable heel ulcer to the plantar aspect of the left foot measuring 4 cm in length x 3 cm in width x 0.3 cm in depth base of wound with yellow and harden fibrous tissue, malodorous, no fluctuance, no warmth, no pus. Small amount of serous drainage observed to dressing. - Lab Result Diagrams: 09/23/17 04:42 09/23/17 04:42 Labs: Abnormal lab results RBC 3.22 M/mcL (4.19-5.50) L 09/23/17 04:42 Hgb 8.7 g/dL (12.9-16.9) L 09/23/17 04:42 Hct 28.2 % (37.5-50.1) L 03/13/18 04:42 MCH 27.0 pg (28.0-33.3) L 09/23/17 04:42 MCHC 30.9 g/dL (31.6-35.5) L 09/23/17 04:42 MPV 9.3 fL (9.4-12.4) L 09/23/17 04:42 ESR 91 mm/hr (0-10) H 09/17/17 11:48 PT 13.0 Seconds (9.4-12.1) H 09/17/17 05:43 Sodium 133 mEq/L (136-145) L 09/23/17 04:42 Carbon Dioxide 18 mEq/L (23-29) L 09/23/17 04:42 BUN 31 mg/dL (6-20) H 09/23/17 04:42 Creatinine 3.36 mg/dL (0.70-1.30) H 09/23/17 04:42 Est GFR ( Amer) 24 (> 60) L 09/23/17 04:42 Est GFR (Non-Af Amer) 20 (> 60) L 09/23/17 04:42 Glucose 147 mg/dL (70-105) H 09/23/17 04:42 POC Glucose 170 (58-89) H 09/23/17 11:18 Hemoglobin A1c 9.4 % (-5.6) H 09/21/17 01:55 Alkaline Phosphatase 107 Units/L (34-104) H 09/21/17 08:54 C-Reactive Protein 102 mg/L (Less than 10) H 09/17/17 11:48 Albumin 3.2 g/dL (3.5-5.7) L 09/21/17 08:54 Albumin/Globulin Ratio 1.0 (1.1-2.2) L 09/21/17 08:54 Urine Protein 100 mg/dL (Neg-Trace) H 09/20/17 21:00 Urine Glucose (UA) 100 mg/dL (Normal) H 09/20/17 21:00 Consult Discharge Plan - Plan Referrals: Sha Ruiz MD [Primary Care Provider] -
[2017-09-23 14:03] LABS: Complement Component 3 152 mg/dL (88-201); Complement Component 4 24 mg/dL (10-40)
[2017-09-23] MEDS: Insulin DETEMIR 100 UNIT/ML X5UNITS SQ SCH (20:40)
[2017-09-24] MEDS: *HR* Heparin 5,000 UNIT/ML VIAL SQ SCH ×2 (01:00→08:49)
[2017-09-24] MEDS: Piperacillin/Tazobactam 3.375 GM in 0.9 % Sodium Chloride Mini Bag 100 ML IVPB SCH (06:18)
[2017-09-24] MEDS: hydrALAZINE 25 MG TABLET PO SCH (06:18)
[2017-09-24 07:00] LABS: Basophils % 0.4 %; Eosinophils # 0.2 K/mcL (0.0-0.6); Eosinophils % 2.5 %; Hematocrit 27.9 % (37.5-50.1); Hemoglobin 8.7 g/dL (12.9-16.9); Immature Granulocytes % 0.7 % (0-4); Lymphocytes # 0.9 K/mcL (0.6-4.6); Lymphocytes % 9.7 %; Mean Corpuscular HGB Conc 31.2 g/dL (31.6-35.5); Mean Corpuscular Hemoglobin 26.9 pg (28.0-33.3); Mean Corpuscular Volume 86.1 fL (83.0-100.0); Mean Platelet Volume 9.1 fL (9.4-12.4); Monocytes # 0.9 K/mcL (0.0-1.3); Monocytes % 9.8 %; Neutrophils # 7.4 K/mcL (1.6-8.9); Platelet Count 239 K/mcL (140-400); Red Blood Count 3.24 M/mcL (4.19-5.50); Red Cell Distribution Width 14.3 % (11.5-14.5); Segmented Neutrophils % 76.9 %
[2017-09-24 07:22] LABS: Calcium 8.8 mg/dL (8.6-10.3); Potassium 4.4 mEq/L (3.5-5.1)
--- NOTE | 2017-09-24 07:47 | Infectious Disease Progress No ---
Date of Encounter: 09/24/17 Time of Encounter: 07:46 - Assessment and Plan (1) Cellulitis Current Visit: Yes Status: Acute Cellulitis of the left foot- significantly improved. - Causative organisms including Proteus Mirabilis, Escherichia coli, enterococcus species - demonstrates sensitivity to current antibiotic coverage to Zosyn 3.375 g IV every 8 hours - Enterococcus species sensitive to vancomycin, Ampicillin (resistant to Tetracyclines) no need to add Zyvox at this time. - Creatinine clearance in the low 30's - MRI performed 09/17/2017 was negative for osteomyelitis or fluid collection or abscess. 09/24: No acute changes over night, Patient tolerating current therapy. minor improvement in renal function. No change to current plan. Continue to dose antibiotics appropriately. At this point, continue zosyn. on discharge may switch patient to: 1. keflex 500 mg q8 hrs for now, if CrCl goes under 29, will dose adjust to 250mg q8hrs. 2. Amoxicillin 500 mg q8hrs, if CrCl goes under 29 will switch to 500 q12hrs. duration of treatment 14 days (through 10/02/17) tight glucose control. the reason Bactrim s not used is because of his kidney function and concern for VICKI. Patient very worried about his kidneys. Ideally we wont use two beta lactams to treat but we felt that it's a better option from bactrim/amoxicillin combination. monitor kidney function closely Qualifiers: Site of cellulitis: extremity Site of cellulitis of extremity: lower extremity Laterality: left Qualified Code(s): L03.116 - Cellulitis of left lower limb (2) Foot ulcer due to secondary DM Current Visit: Yes Status: Acute Patient presented with 7 mm diabetic foot ulcer to the left heel, MRI does not demonstrate any bony involvement. 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 - Wound improving. - Continue wound management per podiatry. (3) Acute kidney injury superimposed on chronic kidney disease Current Visit: Yes Status: Acute Current Creatinine 3.20, minor improvement over the past few days. Baseline around 2.0 GFR 21 - Hx of significant deterioration in renal function in 2016 requiring short term dialysis. Creatinine clearance: 44 Suspected multifactoral with poorly controlled DM, current left heel ulcer and cellulites. We will try to avoid antibiotics that could be harsh on the kidneys (4) Morbid (severe) obesity due to excess calories Current Visit: Yes Status: Acute BMI 55.5 (5) Chronic venous stasis dermatitis of both lower extremities Current Visit: Yes Status: Chronic Stable, may contribute in poor healing of LE wounds and infections. (6) Severe sepsis Current Visit: Yes Status: Acute On admission Mr. Gutierres met 2 SIRS criteria including leukocytosis and tachycardia - He demonstrates end organ damage (acute kidney injury) with worsening renal function suspected secondary to left lower extremity cellulitis - Tachycardia and Leukocytosis now resolved with current therapy. Continues to improve. (7) Diabetes mellitus Current Visit: Yes Status: Chronic Insulin dependent diabetic, uncontrolled diabetes with hemoglobin A1c of 10 and current hyperglycemia. - Complicated by previous diabetic foot ulcers resulting in osteomyelitis and digits and metatarsal amputations. - Currently complicated by left heel ulcer - Right heel demonstrates callus and high risk for future diabetic ulcer formation. Qualifiers: Diabetes mellitus type: type 2 Diabetes mellitus fci insulin use: with fci use Diabetes mellitus complication status: with hyperglycemia Qualified Code(s): E11.65 - Type 2 diabetes mellitus with hyperglycemia; Z79.4 - senior care (current) use of insulin - Subjective Interval history: Mr. Gutierres 51-year-old males and seen evaluated patient bedside this morning. He is alert awake interactive and asking when he can be discharged. He denies any fevers, chills, diaphoresis, nausea vomiting diarrhea constipation. He denies any new skin redness, warmth, pain around his current diabetic foot ulcer. He is able to flex and extend at the knee joint ankle joints bilaterally without any discomfort. He feels that he is improving overall. Infect Dis PN-Objective Data - Labs CBC & Chem 7: 09/24/17 06:45 09/24/17 06:45 Labs: Laboratory Results - last 24 hr 09/21/17 09/22/17 09/23/17 01:55 12:39 07:46 WBC RBC Hgb Hct MCV MCH MCHC RDW Plt Count MPV Immature Gran % Seg Neutrophils % Lymphocytes % Monocytes % Eosinophils % Basophils % Neutrophils # Lymphocytes # Monocytes # Eosinophils # Basophils # Sodium Potassium Chloride Carbon Dioxide BUN Creatinine Est GFR ( Amer) Est GFR (Non-Af Amer) BUN/Creatinine Ratio Glucose POC Glucose 194 H 134 H Calculated Osmolality Calcium Ur Eosinophil Smear Complement C3 152 Complement C4 24 09/23/17 09/23/17 09/23/17 11:18 13:45 15:24 WBC RBC Hgb Hct MCV MCH MCHC RDW Plt Count MPV Immature Gran % Seg Neutrophils % Lymphocytes % Monocytes % Eosinophils % Basophils % Neutrophils # Lymphocytes # Monocytes # Eosinophils # Basophils # Sodium Potassium Chloride Carbon Dioxide BUN Creatinine Est GFR ( Amer) Est GFR (Non-Af Amer) BUN/Creatinine Ratio Glucose POC Glucose 170 H 221 H Calculated Osmolality Calcium Ur Eosinophil Smear 0 Complement C3 Complement C4 09/23/17 09/24/17 09/24/17 20:01 06:45 06:45 WBC 9.6 RBC 3.24 L Hgb 8.7 L Hct 27.9 L MCV 86.1 MCH 26.9 L MCHC 31.2 L RDW 14.3 Plt Count 239 MPV 9.1 L Immature Gran % 0.7 Seg Neutrophils % 76.9 Lymphocytes % 9.7 Monocytes % 9.8 Eosinophils % 2.5 Basophils % 0.4 Neutrophils # 7.4 Lymphocytes # 0.9 Monocytes # 0.9 Eosinophils # 0.2 Basophils # 0.0 Sodium 134 L Potassium 4.4 Chloride 108 H Carbon Dioxide 18 L BUN 30 H Creatinine 3.20 H Est GFR ( Amer) 25 L Est GFR (Non-Af Amer) 21 L BUN/Creatinine Ratio 9 Glucose 148 H POC Glucose 171 H Calculated Osmolality 287 Calcium 8.8 Ur Eosinophil Smear Complement C3 Complement C4 09/24/17 07:32 WBC RBC Hgb Hct MCV MCH MCHC RDW Plt Count MPV Immature Gran % Seg Neutrophils % Lymphocytes % Monocytes % Eosinophils % Basophils % Neutrophils # Lymphocytes # Monocytes # Eosinophils # Basophils # Sodium Potassium Chloride Carbon Dioxide BUN Creatinine Est GFR ( Amer) Est GFR (Non-Af Amer) BUN/Creatinine Ratio Glucose POC Glucose 137 H Calculated Osmolality Calcium Ur Eosinophil Smear Complement C3 Complement C4 Cultures: Cultures 09/17/17 11:50 Wound Culture - Final Left Foot Proteus mirabilis Escherichia coli Enterococcus species Serology 09/23/17 09/20/17 09/20/17 Range/Units 13:45 21:00 21:00 Urine Color Yellow (Yellow) Urine Clarity Clear (Clear) Urine pH 6.0 (5.0-8.0) pH Units Ur Specific [place] 1.018 (1.010-1.025) Urine Protein 100 H (Neg-Trace) mg/dL Urine Glucose (UA) 100 H (Normal) mg/dL Urine Ketones Negative (Negative) mg/dL Urine Blood Negative (Negative) Urine Nitrite Negative (Negative) Urine Bilirubin Negative (Negative) Urine Urobilinogen Normal (Normal) mg/dL Ur Leukocyte Esterase Negative (Negative) Urine Microscopic RBC 0-3 (0-3) per hpf Urine Microscopic WBC 0-3 (0-3) per hpf Ur Eosinophil Smear 0 0 (None Seen) % Ur Squamous Epith Cells Few (None-Few) per lpf Urine Bacteria None Seen (None-Few) per hpf Hyaline Casts None Seen (None-Few) per lpf Ur Culture Indicated? NO (NO) Urine Creatinine 90 mg/dL Urine Sodium 43.4 mEq/L Exam - Constitutional Vitals: Temp Pulse Resp BP Pulse Ox 97.9 F 84 16 122/75 92 09/24/17 06:15 09/24/17 06:15 09/24/17 06:15 09/24/17 06:15 09/24/17 06:15 - Head Head exam: Present: atraumatic, normocephalic - Respiratory Respiratory exam: Present: CTAB - Cardiovascular Cardiovascular exam: Present: RRR, +S1, +S2 - Extremities Exam Additional comments: Left ankle and foot wrapped, no signs of erythema worsening of edema or worsening of infection. He is able to actively and passively flex and extend at the conjoin joints around the site of his diabetic foot ulcer without discomfort or pain or restriction. Consult Discharge Plan - Plan Additional Instructions: Please return to ER if worsening foot ulcer, development of warmth, redness, or pain at site of recent debridement. Please take all medications as prescribed: Continue previous home medications Amoxicillin 500 mg 3 times a day for 2 weeks Omnicef 300 mg twice a day for 2 weeks Continue to apply Santyl cream per podiatry recommendations Repeat lab work in 1 week to assess renal function Follow-up with her PCP, ID, nephrology, and podiatry Referrals: [facility]inic [Other] - 10/01/17 3:15 pm Alexandra Phelps MD [Partnered Physician] - 10/21/17 11:00 am (First appt. available. Patient will be new to the office. Thank you) Kassandra Alcazar MD [Partnered Physician] - 10/08/17 2:00 pm Sha Ruiz MD [Primary Care Provider] - 09/26/17 10:00 am Prescriptions: Amoxicillin 500 mg PO TID #42 tablet Cefdinir [Omnicef] 300 mg PO BID #28 capsule Collagenase Oint [Santyl] 1 appl TP BID #1 tube - Attending Attestation I examined this patient and my medical decision-making was reviewed with the Resident Physician. I agree with the documented findings, disposition and treatment plan as described except to the extent set forth below.
[2017-09-24] MEDS: Insulin LISPRO 300 UNITS/3 ML VIAL SQ SCH ×2 (08:10→12:09)
[2017-09-24] MEDS: NIFEdipine XL (24 HR) 30 MG TAB.ER.24 PO SCH (08:49)
[2017-09-24] MEDS: Aspirin 81 MG TAB.CHEW PO SCH (08:49)
--- NOTE | 2017-09-24 10:17 | Discharge Summary ---
<Manuel Phillips - Last Filed: 09/24/17 10:15> - NOTES TO OUTPATIENT PROVIDER Notes to Outpatient Provider: Please follow renal function in 1 week. Patient will be sent out with continued Keflex (500 mg Q8Hr) and Amoxicillin (500 mg Q8Hr) for a total of 14 days. He will need to follow up with Nephrology, ID, and podiatry Date of Encounter: 09/24/17 Time of Encounter: 08:00 - Discharge Diagnosis (1) Diabetic ulcer of left foot Priority: Primary Status: Acute Qualifiers: Diabetic foot ulcer location: heel Diabetes mellitus type: type 2 Non- pressure ulcer stage: unspecified non-pressure ulcer stage Qualified Code(s): E11.621 - Type 2 diabetes mellitus with foot ulcer; L97.429 - Non-pressure chronic ulcer of left heel and midfoot with unspecified severity; L97.429 - Non- pressure chronic ulcer of left heel and midfoot with unspecified severity; L97.429 - Non-pressure chronic ulcer of left heel and midfoot with unspecified severity; L97.429 - Non-pressure chronic ulcer of left heel and midfoot with unspecified severity (2) Acute kidney injury superimposed on chronic kidney disease Priority: Primary Status: Acute (3) Diabetes mellitus type 2, insulin dependent Priority: Primary Status: Chronic (4) DVT prophylaxis Priority: Secondary Status: Acute (5) Essential hypertension Priority: Primary Status: Chronic (6) Chronic venous stasis dermatitis of both lower extremities Priority: Primary Status: Acute (7) Morbid obesity with BMI of 50.0-59.9, adult Priority: Primary Status: Acute Hospital course: Mr. Gutierres is a 51 year old male with prior medical history of arthritis, prior CVA, insulin-dependent diabetes mellitus, chronic kidney disease (with VICKI requiring HD one year ago), and previous osteomyelitis requiring amputations of digits 3, 4, and 5 on his left foot presented to [facility] on 09/17/17 because of a worsening ulcer on the heel of his left foot. At presentation he was started on Zyvox and Zosyn and podiatry was consulted. He underwent debridement of his left foot ulcer with removal of a large amount of animal hair and rocks. Wound culture of the foul-smelling drainage and abraded tissue was obtained. This showed Proteus mirablis, Escherichia coli, enterococcus. The Zyvox was stopped and Levaquin and Flagyl were added. Infectious disease was consulted who recommended continuing only Zosyn. His infection has been improving while here. Unfortunately, patient presented with an acute kidney injury with serum creatinine of 2.67 (baseline 1.7) and his renal function continued to worsen while here. On 09/21/17 patient had a creatinine of 3.44, his acute kidney injury was nonoliguric in nature. Nephrology had been seen for the duration of his stay here and his renal function was closely watched daily. He had conservative management with some light fluids and avoidance of any nephrotoxic agents. After a peak creatinine 3.44 seen on 09/21/17, patient renal function stabilized and began to improve slightly. With the stabilization/improvement of patient renal function he is safe/stable for discharge with continued antibiotics for 2 weeks, repeat lab work and one week, and follow-up with his PCP, podiatry, infectious disease, nephrology. Discharge discussed with: patient - Time Spent with Patient Total time spent providing and/or coordinating discharge services: Greater than 30 minutes - Discharge Medications Prescriptions: Amoxicillin 500 mg PO TID #42 tablet Cefdinir [Omnicef] 300 mg PO BID #28 capsule Collagenase Oint [Santyl] 1 appl TP BID #1 tube Home Medications: NIFEdipine XL (24 HR) [Procardia XL] 30 mg PO DAILY #30 tab.er.24 04/29/16 [Rx] hydrALAZINE [HydrALAZINE] 100 mg PO Q8HR 30 Days tablet 04/29/16 [Rx] Aspirin 81 mg PO DAILY #30 tab.chew 07/03/16 [Rx] Insulin DETEMIR [Levemir] 38 unit SQ QAM 10/01/16 [History] Insulin LISPRO [Humalog Kwikpen U-100] 4 - 14 unit SQ TID 10/01/16 [History] Amoxicillin 500 mg PO TID #42 tablet 09/24/17 [Rx] Cefdinir [Omnicef] 300 mg PO BID #28 capsule 09/24/17 [Rx] Collagenase Oint [Santyl] 1 appl TP BID #1 tube 09/24/17 [Rx] Allergies/Adverse Reactions: 3 Allergy/AdvReac Type Severity Reaction Status Date / Time cephalexin [From Keflex] AdvReac Nausea Verified 09/16/17 19:02 Date of admission: 09/17/17 04:48 Primary care physician: Sha Ruiz MD Consults: 09/19/17 09:28 Consult to Infectious Diseases [CONS] Routine Consulting Provider: Infectious Disease Susu Reason for Consult: Diabetic foot ulcer/ VICKI Time Notified: 09:29 Call Completed: Yes 09/20/17 09:06 Consult to Nephrology [CONS] Routine Consulting Provider: Kidney Susu/ALANA/JEF/BETTY Reason for Consult: VICKI on CKD Time Notified: 09:07 Call Completed: Yes Discharging clinician: Manuel Phillips Anticipated date of discharge: 09/24/17 - Constitutional Vitals: Temp Pulse Resp BP Pulse Ox 97.9 F 84 16 122/75 92 09/24/17 06:15 09/24/17 06:15 09/24/17 06:15 09/24/17 06:15 09/24/17 08:48 General appearance: Present: cooperative, A&O X 3, morbidly obese, pleasant, no acute distress, answers questions appropriately Exam: General: Cooperative, pleasant, no acute distress, alert and oriented 3, answers questions appropriately HEENT: Normocephalic, atraumatic, neck supple, trachea midline, Conjunctiva pink , sclera anicteric, oral mucosa moist Respiratory: No accessory muscle usage, clear to auscultation bilaterally, no wheezes/rhonchi/rales appreciated Cardiovascular: Regular rate and rhythm, S1 and S2 present, no murmurs/rubs/ gallops/clicks appreciated GI/abdominal: Nondistended, nontender, soft, normal bowel sounds, no peritoneal signs, no CVA tenderness, obese Extremities: No calf tenderness, bilateral non-pitted edema present, previously amputation of digits 3, 4, 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, bandage in place currently over heel ulcer, warm Neurological: Alert and oriented 3, no facial droop, no focal deficits Skin: Dry, intact, normal color - Patient Status Disposition: Home, Self-Care Condition: Good Functional capacity at discharge: independent ambulation Overall status at discharge: patient is progressing back to baseline - Ambulatory Orders Ambulatory Orders: Basic Metabolic Panel [CHEM] Time Frame: 1 Week, Facility: [facility], Location: Lab - Discharge Instructions Follow Up With: WoundCare,Clinic [Other] Alexandra Phelps MD [Partnered Physician] - 10/21/17 11:00 am (First appt. available. Patient will be new to the office. Thank you) Kassandra Alcazar MD [Partnered Physician] - 10/08/17 2:00 pm Sha Ruiz MD [Primary Care Provider] - 09/26/17 10:00 am Additional Instructions: Please return to ER if worsening foot ulcer, development of warmth, redness, or pain at site of recent debridement. Please take all medications as prescribed: Continue previous home medications Amoxicillin 500 mg 3 times a day for 2 weeks Omnicef 300 mg twice a day for 2 weeks Continue to apply Santyl cream per podiatry recommendations Repeat lab work in 1 week to assess renal function Follow-up with her PCP, ID, nephrology, and podiatry - Diet and Activity Activity: increase activity as tolerated Diet: diabetic diet <Denis Barry - Last Filed: 09/24/17 12:01> Date of Encounter: 09/24/17 - Discharge Diagnosis (1) Diabetic ulcer of left foot Status: Acute Qualifiers: Diabetic foot ulcer location: heel Diabetes mellitus type: type 2 Non- pressure ulcer stage: unspecified non-pressure ulcer stage Qualified Code(s): E11.621 - Type 2 diabetes mellitus with foot ulcer; L97.429 - Non-pressure chronic ulcer of left heel and midfoot with unspecified severity; L97.429 - Non- pressure chronic ulcer of left heel and midfoot with unspecified severity; L97.429 - Non-pressure chronic ulcer of left heel and midfoot with unspecified severity; L97.429 - Non-pressure chronic ulcer of left heel and midfoot with unspecified severity (2) Acute kidney injury superimposed on chronic kidney disease Status: Acute (3) Diabetes mellitus type 2, insulin dependent Status: Chronic (4) DVT prophylaxis Status: Acute (5) Essential hypertension Status: Chronic (6) Chronic venous stasis dermatitis of both lower extremities Status: Chronic (7) Morbid obesity with BMI of 50.0-59.9, adult Status: Acute Hospital course: Mr. Gutierres is a 51 year old male - Time Spent with Patient Total time spent providing and/or coordinating discharge services: Date of admission: 09/17/17 04:48 Primary care physician: Sha Ruiz MD Consults: 09/19/17 09:28 Consult to Infectious Diseases [CONS] Routine Consulting Provider: Infectious Disease [place] Reason for Consult: Diabetic foot ulcer/ VICKI Time Notified: 09:29 Call Completed: Yes 09/20/17 09:06 Consult to Nephrology [CONS] Routine Consulting Provider: Kidney Susu/ALANA/JEF/BETTY Reason for Consult: VICKI on CKD Time Notified: 09:07 Call Completed: Yes - Constitutional Vitals: Temp Pulse Resp BP Pulse Ox 97.9 F 84 16 122/75 92 09/24/17 06:15 09/24/17 06:15 09/24/17 06:15 09/24/17 06:15 09/24/17 08:48 - Attending Attestation Acute on chronic renal failure, CKD4 has developed nausea with Keflex can discharge on Cefdinir and amoxicillin time spent 40 min I examined this patient and my medical decision-making was reviewed with the Resident Physician. I agree with the documented findings, disposition and treatment plan as described except to the extent set forth below.
--- NOTE | 2017-09-24 11:27 | Physician Discharge Referral ---
<JacquelineManuel - Last Filed: 09/24/17 11:24> Home Health/Hosp Referral Info Transfer to: Home Health Provider in Charge Post Discharge: PCP - Diagnosis (1) Diabetic ulcer of left foot Priority: Primary Status: Acute (2) Acute kidney injury superimposed on chronic kidney disease Priority: Primary Status: Acute (3) Diabetes mellitus type 2, insulin dependent Priority: Primary Status: Chronic (4) DVT prophylaxis Priority: Secondary Status: Acute (5) Essential hypertension Priority: Primary Status: Chronic (6) Chronic venous stasis dermatitis of both lower extremities Priority: Primary Status: Chronic (7) Morbid obesity with BMI of 50.0-59.9, adult Priority: Primary Status: Acute - Respiratory Orders Smoking Cessation: Smoking cessation has been advised. For more information, call the [employer] Quit Line at 2-600-RBEO-NOW. - Diet/Nutrition Diet/Nutrition Orders: No Concentrated Sweets - Activity Activity Orders: Up ad amilcar, Ambulate - Services Needed Following services are medically necessary services: Nursing Other Treatments: Patient requires assessment and wound care managment with dressing changes - Transfer Medications Prescriptions: Amoxicillin 500 mg PO TID #42 tablet Cefdinir [Omnicef] 300 mg PO BID #28 capsule Collagenase Oint [Santyl] 1 appl TP BID #1 tube Home Medications: NIFEdipine XL (24 HR) [Procardia XL] 30 mg PO DAILY #30 tab.er.24 04/29/16 [Rx] hydrALAZINE [HydrALAZINE] 100 mg PO Q8HR 30 Days tablet 04/29/16 [Rx] Aspirin 81 mg PO DAILY #30 tab.chew 07/03/16 [Rx] Insulin DETEMIR [Levemir] 38 unit SQ QAM 10/01/16 [History] Insulin LISPRO [Humalog Kwikpen U-100] 4 - 14 unit SQ TID 10/01/16 [History] Amoxicillin 500 mg PO TID #42 tablet 09/24/17 [Rx] Cefdinir [Omnicef] 300 mg PO BID #28 capsule 09/24/17 [Rx] Collagenase Oint [Santyl] 1 appl TP BID #1 tube 09/24/17 [Rx] Allergies/Adverse Reactions: 3 Allergy/AdvReac Type Severity Reaction Status Date / Time cephalexin [From Keflex] AdvReac Nausea Verified 09/16/17 19:02 Certification: Further, I certify that my clinical findings support that this patient is homebound (i.e. absences from home require considerable and taxing effort and are for medical reasons or [employer] services or infrequently or short duration when for other reasons) because: Homebound Reason: Patient requires assistance of a person or device to safely leave home Attestation: My signature below is to certify that this patient is under my care and that I, or nurse practitioner, or a physician's grants and contracts assistant working with me, has a face-to -face encounter with this patient. <Denis Barry - Last Filed: 09/24/17 12:02> - Diagnosis (1) Diabetic ulcer of left foot Status: Acute (2) Acute kidney injury superimposed on chronic kidney disease Status: Acute (3) Diabetes mellitus type 2, insulin dependent Status: Chronic (4) DVT prophylaxis Status: Acute (5) Essential hypertension Status: Chronic (6) Chronic venous stasis dermatitis of both lower extremities Status: Chronic (7) Morbid obesity with BMI of 50.0-59.9, adult Status: Acute - Respiratory Orders Smoking Cessation: Smoking cessation has been advised. For more information, call the [place] [employer] Quit Line at 5-202-SDUK-NOW. Certification: Further, I certify that my clinical findings support that this patient is homebound (i.e. absences from home require considerable and taxing effort and are for medical reasons or [employer] services or infrequently or short duration when for other reasons) because: Attestation: My signature below is to certify that this patient is under my care and that I, or nurse practitioner, or a physician's grants and contracts assistant working with me, has a face-to -face encounter with this patient.
[2017-09-24] MEDS ORDERED: FLUARIX QUAD 2017-18 36MOS UP/PF 0.5 ML SYRINGE IM ONE (14:12)
[2017-09-24 14:30] VITALS: BP 122/75
== END 2017-09-24 15:10 | disposition home health service (06) | DRG 872 ==
LOC: EMEROO 18:30 → 3NENU 18:30 → SUATTDRO 09-17 04:48 → 3ANU 09-22 11:18
PROVIDERS: ADMIT Internal Medicine; ATTEND Internal Medicine

== ENCOUNTER 2020-03-06 11:38 | Inpatient (IN) ==
[2020-03-06] MEDS ORDERED: Piperacillin/Tazobactam 3.375 GM in Water for inj. (sterile) 20 ML IVP ONE (12:20)
[2020-03-06 12:51] LABS: Basophils % 0.1 %; Eosinophils % 0.1 %; Hematocrit 32.2 % (37.5-50.1); Hemoglobin 10.3 g/dL (12.9-16.9); Immature Granulocytes % 0.7 % (0-4); Lymphocytes # 0.3 K/mcL (0.6-4.6); Lymphocytes % 1.7 %; Mean Corpuscular Hemoglobin 28.7 pg (28.0-33.3); Mean Corpuscular Volume 89.7 fL (83.0-100.0); Mean Platelet Volume 10.2 fL (9.4-12.4); Monocytes # 1.3 K/mcL (0.0-1.3); Monocytes % 7.2 %; Neutrophils # 16.7 K/mcL (1.6-8.9); Platelet Count 247 K/mcL (140-400); Red Blood Count 3.59 M/mcL (4.19-5.50); Red Cell Distribution Width 14.7 % (11.5-14.5); Segmented Neutrophils % 90.2 %; White Blood Count 18.6 K/mcL (4.3-11.1)
[2020-03-06 13:15] LABS: Calcium 8.9 mg/dL (8.6-10.3); Potassium 4.3 mEq/L (3.5-5.1)
[2020-03-06 13:48] LABS: Estimated Average Glucose 148 mg/dl
[2020-03-06 14:44] LABS: Alanine Aminotransferase 8 Units/L (7-52); Albumin 3.1 g/dL (3.5-5.7); Alkaline Phosphatase 139 Units/L (34-104); Aspartate Amino Transferase 12 Units/L (13-39); Bilirubin,Direct 0.9 mg/dL (0.0-0.2); Bilirubin,Indirect 0.6 mg/dL (0.0-1.0); Bilirubin,Total 1.5 mg/dL (0.3-1.0); Globulin 3.2 g/dL (2.4-3.5); Magnesium 1.9 mg/dL (1.6-2.6); Phosphorous 4.1 mg/dL (2.7-4.5); Total Protein 6.3 g/dL (6.4-8.9)
[2020-03-06] MEDS ORDERED: Naloxone 0.4 MG/ML INJ IVP PRN (14:50)
[2020-03-06] MEDS ORDERED: Acetaminophen 325 MG TABLET PO PRN (14:50)
[2020-03-06] MEDS ORDERED: Ondansetron ODT 4 MG TAB.RAPDIS SL PRN (14:50)
[2020-03-06] MEDS ORDERED: 0.9 % Sodium Chloride 1,000 ML IVC ONE (14:55)
[2020-03-06] MEDS ORDERED: Dextrose Gel 15 GM/37.5 ML TUBE PO PRN ×2 (15:35)
[2020-03-06] MEDS ORDERED: D5% in Water 1,000 ML IVC PRN (15:35)
[2020-03-06] MEDS ORDERED: *HR* Dextrose 50 % in Water (Vial) 50 ML VIAL IVP PRN (15:35)
[2020-03-06] MEDS: amLODIPine 5 MG TABLET PO SCH (16:05)
[2020-03-06] MEDS: Clindamycin 600 MG/50 ML 600 MG/50 ML IV.SOLN IVPB SCH ×2 (16:12→23:59)
[2020-03-06] MEDS: Insulin LISPRO 300 UNITS/3 ML VIAL SQ SCH (16:47)
[2020-03-06] MEDS: 0.9 % Sodium Chloride 1,000 ML IVC SCH (16:49)
[2020-03-06 18:07] LABS: Bacteria,Urine Few per hpf (None-Few); Bilirubin,Urine Negative (Negative); Blood,Urine Moderate (Negative); Clarity,Urine Clear (Clear); Color,Urine Light-Yellow (Yellow); Glucose,Urine (UA) 100 mg/dL (Normal); Granular Casts,Urine Few per lpf (None Seen); Ketones,Urine Trace mg/dL (Negative); Leukocyte Esterase,Urine Negative (Negative); Mucus,Urine Few per lpf (None-Few); Nitrite,Urine Negative (Negative); PH,Urine 6.5 pH Units (5.0-8.0); Protein,Urine >=300 mg/dL (Neg-Trace); Specific Gravity,Urine 1.011 (1.010-1.025); Squamous Epithelial Cell,Urine Few per hpf (None-Few); Urobilinogen,Urine Normal (Normal)
[2020-03-06 18:29] LABS: Potassium,Urine 26.3 mEq/L; Protein/Creatinine Ratio,Urine 7.51 mg/mg (0.00-0.20); Sodium, Urine 43.4 mEq/L
[2020-03-06 18:45] LABS: Creatine Kinase 100 Units/L (30-223); Ferritin 141 ng/mL (20-250); Iron < 10 mcg/dL (65-175); Transferrin 174 mg/dL (203-362)
[2020-03-06] MEDS ORDERED: Insulin LISPRO 300 UNITS/3 ML VIAL SQ SCH (21:00)
[2020-03-06] MEDS: *HR* Heparin 5,000 UNIT/ML VIAL SQ SCH (21:09)
[2020-03-06] MEDS: *HR* OxyCODONE Immed Rel 5 MG TABLET PO PRN (21:13)
[2020-03-06] MEDS ORDERED: Morphine Sulfate 2 MG/ML SYRINGE IVP PRN (23:42)
[2020-03-07] MEDS: 0.9 % Sodium Chloride 1,000 ML IVC SCH (00:22)
[2020-03-07] MEDS ORDERED: Piperacillin/Tazobactam 3.375 GM in 0.9 % Sodium Chloride Mini Bag 100 ML IVPB SCH (01:00)
[2020-03-07 04:51] LABS: Basophils % 0.1 %; Eosinophils % 0.1 %; Hemoglobin 9.4 g/dL (12.9-16.9); Immature Granulocytes % 0.5 % (0-4); Lymphocytes # 0.4 K/mcL (0.6-4.6); Lymphocytes % 2.1 %; Mean Corpuscular HGB Conc 31.3 g/dL (31.6-35.5); Mean Corpuscular Hemoglobin 27.9 pg (28.0-33.3); Mean Platelet Volume 10.2 fL (9.4-12.4); Monocytes # 1.2 K/mcL (0.0-1.3); Neutrophils # 15.1 K/mcL (1.6-8.9); Platelet Count 221 K/mcL (140-400); Red Blood Count 3.37 M/mcL (4.19-5.50); Red Cell Distribution Width 14.7 % (11.5-14.5); Segmented Neutrophils % 90.2 %; White Blood Count 16.8 K/mcL (4.3-11.1)
[2020-03-07 04:53] LABS: Activated Partial Thrombo Time 32.6 Seconds (26.0-36.0)
[2020-03-07 04:54] LABS: INR 1.5; Prothrombin Time 17.1 Seconds (9.4-12.1)
[2020-03-07] MEDS: *HR* OxyCODONE Immed Rel 5 MG TABLET PO PRN ×2 (04:56→13:25)
[2020-03-07 05:05] LABS: Calcium 8.5 mg/dL (8.6-10.3); Potassium 4.1 mEq/L (3.5-5.1)
[2020-03-07] MEDS: *HR* Heparin 5,000 UNIT/ML VIAL SQ SCH ×3 (05:52→21:14)
[2020-03-07] MEDS: Insulin LISPRO 300 UNITS/3 ML VIAL SQ SCH ×4 (07:40→21:08)
[2020-03-07] MEDS: amLODIPine 5 MG TABLET PO SCH (07:41)
[2020-03-07] MEDS ORDERED: Bupivacaine/Clonidine Syringe 20 ML, Syringe LUER-LOK 1 EACH TP ONE (07:45)
[2020-03-07] MEDS ORDERED: Lidocaine -MPF 2% 2 ML VIAL ONE (07:54)
[2020-03-07] MEDS ORDERED: *HR* FentaNYL (PF) 100 MCG/2 ML VIAL IVP PRN ×2 (08:34→10:32)
[2020-03-07] MEDS ORDERED: Ondansetron 4 MG/2 ML VIAL IVP ONE ×2 (08:34→10:32)
[2020-03-07] MEDS ORDERED: *HR* Promethazine 25 MG/ML VIAL IVP PRN ×2 (08:34→10:32)
[2020-03-07] MEDS ORDERED: *HR* OxyCODONE Immed Rel 5 MG TABLET PO PRN ×2 (08:34→10:32)
[2020-03-07] MEDS: Clindamycin 600 MG/50 ML 600 MG/50 ML IV.SOLN IVPB SCH ×3 (08:36→23:51)
[2020-03-07] MEDS ORDERED: *HR* Midazolam HCl 2 MG/2 ML VIAL ONE (08:42)
[2020-03-07] MEDS ORDERED: *HR* Propofol 200 MG/20 ML VIAL IVP ONE (08:44)
[2020-03-07] MEDS ORDERED: Acetaminophen 325 MG TABLET PO PRN (10:32)
[2020-03-07] MEDS ORDERED: *HR* Dextrose 50 % in Water (Vial) 50 ML VIAL IVP PRN (10:32)
[2020-03-07] MEDS ORDERED: Ondansetron ODT 4 MG TAB.RAPDIS SL PRN (10:32)
[2020-03-07] MEDS ORDERED: D5% in Water 1,000 ML IVC PRN (10:32)
[2020-03-07] MEDS ORDERED: Dextrose Gel 15 GM/37.5 ML TUBE PO PRN ×2 (10:32)
[2020-03-07] MEDS ORDERED: Naloxone 0.4 MG/ML INJ IVP PRN (10:32)
[2020-03-07] MEDS ORDERED: Morphine Sulfate 2 MG/ML SYRINGE IVP PRN (10:32)
[2020-03-07] MEDS: Piperacillin/Tazobactam 3.375 GM in 0.9 % Sodium Chloride Mini Bag 100 ML IVPB SCH (13:20)
[2020-03-07 15:09] LABS: Folate 8.9 ng/mL (3.0-16.0)
[2020-03-07 15:12] LABS: Vitamin B12 > 1500 pg/mL (250-1100)
[2020-03-08] MEDS: *HR* OxyCODONE Immed Rel 5 MG TABLET PO PRN ×2 (00:25→12:00)
[2020-03-08] MEDS: Piperacillin/Tazobactam 3.375 GM in 0.9 % Sodium Chloride Mini Bag 100 ML IVPB SCH ×2 (01:13→11:49)
[2020-03-08] MEDS ORDERED: Acetaminophen IV 1,000 MG/100 ML INFUS..BTL IVPB ONE (03:46)
[2020-03-08] MEDS: *HR* Heparin 5,000 UNIT/ML VIAL SQ SCH ×3 (06:18→22:11)
[2020-03-08] MEDS: Insulin LISPRO 300 UNITS/3 ML VIAL SQ SCH ×4 (07:30→22:05)
[2020-03-08] MEDS: Clindamycin 600 MG/50 ML 600 MG/50 ML IV.SOLN IVPB SCH ×2 (07:50→17:30)
[2020-03-08] MEDS: amLODIPine 5 MG TABLET PO SCH (07:50)
[2020-03-08 08:41] LABS: Basophils % 0.1 %; Eosinophils # 0.1 K/mcL (0.0-0.6); Eosinophils % 0.6 %; Hematocrit 29.7 % (37.5-50.1); Hemoglobin 9.2 g/dL (12.9-16.9); Immature Granulocytes % 0.8 % (0-4); Lymphocytes # 0.5 K/mcL (0.6-4.6); Lymphocytes % 3.4 %; Mean Corpuscular Hemoglobin 27.7 pg (28.0-33.3); Mean Corpuscular Volume 89.5 fL (83.0-100.0); Mean Platelet Volume 9.8 fL (9.4-12.4); Monocytes # 0.9 K/mcL (0.0-1.3); Monocytes % 6.2 %; Neutrophils # 13.3 K/mcL (1.6-8.9); Platelet Count 205 K/mcL (140-400); Red Blood Count 3.32 M/mcL (4.19-5.50); Red Cell Distribution Width 15.1 % (11.5-14.5); Segmented Neutrophils % 88.9 %; White Blood Count 14.9 K/mcL (4.3-11.1)
[2020-03-08 08:57] LABS: Calcium 8.4 mg/dL (8.6-10.3)
[2020-03-08] MEDS ORDERED: 0.9 % Sodium Chloride 250 ML IVC PRN (11:05)
[2020-03-08] MEDS ORDERED: 0.9 % Sodium Chloride 1,000 ML PRIME SCH (11:15)
[2020-03-08] MEDS ORDERED: Lidocaine/EPI 1:100k 1% 50 ML VIAL ONE (12:26)
[2020-03-08] MEDS ORDERED: Heparin 1,000 UNITS/500 mL 500 ML ONE (12:26)
[2020-03-08 13:08] LABS: Hepatitis B Surface Antibody < 3.10 mIU/mL
[2020-03-08 13:20] LABS: Hepatitis B Surface Antigen Nonreactive (Nonreactive)
[2020-03-08] MEDS ORDERED: *HR* OxyCODONE Immed Rel 5 MG TABLET PO PRN ×2 (13:35→13:36)
[2020-03-08] MEDS ORDERED: *HR* Heparin 5,000 UNIT/ML VIAL ONE (13:46)
[2020-03-08] MEDS ORDERED: *HR* Heparin 10,000 UNIT/10 ML VIAL IV PRN (15:08)
[2020-03-09] MEDS: Clindamycin 600 MG/50 ML 600 MG/50 ML IV.SOLN IVPB SCH ×2 (00:01→08:26)
[2020-03-09] MEDS: *HR* Heparin 5,000 UNIT/ML VIAL SQ SCH ×3 (04:56→22:11)
[2020-03-09 06:08] LABS: Basophils % 0.1 %; Eosinophils # 0.1 K/mcL (0.0-0.6); Eosinophils % 0.6 %; Hematocrit 30.4 % (37.5-50.1); Hemoglobin 9.4 g/dL (12.9-16.9); Immature Granulocytes % 1.1 % (0-4); Lymphocytes # 0.5 K/mcL (0.6-4.6); Lymphocytes % 3.2 %; Mean Corpuscular HGB Conc 30.9 g/dL (31.6-35.5); Mean Corpuscular Volume 90.5 fL (83.0-100.0); Mean Platelet Volume 10.3 fL (9.4-12.4); Monocytes # 1.2 K/mcL (0.0-1.3); Monocytes % 7.9 %; Neutrophils # 12.9 K/mcL (1.6-8.9); Platelet Count 239 K/mcL (140-400); Red Blood Count 3.36 M/mcL (4.19-5.50); Red Cell Distribution Width 15.1 % (11.5-14.5); Segmented Neutrophils % 87.1 %; White Blood Count 14.8 K/mcL (4.3-11.1)
[2020-03-09 06:23] LABS: Albumin 2.7 g/dL (3.5-5.7); Albumin/Globulin Ratio 0.9 (1.1-2.2); Calcium 8.1 mg/dL (8.6-10.3); Globulin 3.1 g/dL (2.4-3.5); Magnesium 1.8 mg/dL (1.6-2.6); Phosphorous 4.5 mg/dL (2.7-4.5); Potassium 3.9 mEq/L (3.5-5.1); Total Protein 5.8 g/dL (6.4-8.9)
[2020-03-09] MEDS ORDERED: 0.9 % Sodium Chloride 250 ML IVC PRN ×2 (06:41→16:05)
[2020-03-09] MEDS: Insulin LISPRO 300 UNITS/3 ML VIAL SQ SCH ×4 (07:30→22:12)
[2020-03-09] MEDS: amLODIPine 5 MG TABLET PO SCH (08:26)
[2020-03-09] MEDS ORDERED: *HR* Heparin 10,000 UNIT/10 ML VIAL IV PRN (11:07)
[2020-03-09] MEDS: Piperacillin/Tazobactam 3.375 GM in 0.9 % Sodium Chloride Mini Bag 100 ML IVPB SCH ×2 (13:07)
[2020-03-09] MEDS ORDERED: *HR* Midazolam HCl 2 MG/2 ML VIAL ONE (13:44)
[2020-03-09] MEDS ORDERED: *HR* Propofol 200 MG/20 ML VIAL IVP ONE (13:44)
[2020-03-09] MEDS ORDERED: *HR* FentaNYL (PF) 100 MCG/2 ML VIAL ONE (13:44)
[2020-03-09] MEDS ORDERED: Lidocaine -MPF 2% 2 ML VIAL ONE (13:45)
[2020-03-09] MEDS ORDERED: Ondansetron 4 MG/2 ML VIAL ONE (13:45)
[2020-03-09] MEDS ORDERED: Dexamethasone 4 MG/ML VIAL ONE (13:45)
[2020-03-09] MEDS ORDERED: ROPIVACAINE/PF/NS 0.25% 1 EACH SYRINGE INTRAART ONE (14:00)
[2020-03-09] MEDS ORDERED: Ondansetron 4 MG/2 ML VIAL IVP PRN ×2 (14:06→16:05)
[2020-03-09] MEDS ORDERED: *HR* Labetalol 20 MG/4 ML SYRINGE IVP PRN ×2 (14:06→16:05)
[2020-03-09] MEDS ORDERED: *HR* HYDROmorphone PF 0.5 MG/0.5 ML SYRINGE IVP PRN ×2 (14:06→16:05)
[2020-03-09] MEDS ORDERED: Naloxone 0.4 MG/ML INJ IVP PRN (16:05)
[2020-03-09] MEDS ORDERED: 0.9 % Sodium Chloride 1,000 ML PRIME SCH (16:05)
[2020-03-09] MEDS ORDERED: *HR* Dextrose 50 % in Water (Vial) 50 ML VIAL IVP PRN (16:05)
[2020-03-09] MEDS ORDERED: Dextrose Gel 15 GM/37.5 ML TUBE PO PRN ×2 (16:05)
[2020-03-09] MEDS ORDERED: Acetaminophen 325 MG TABLET PO PRN (16:05)
[2020-03-09] MEDS ORDERED: Ondansetron ODT 4 MG TAB.RAPDIS SL PRN (16:05)
[2020-03-09] MEDS ORDERED: D5% in Water 1,000 ML IVC PRN (16:05)
[2020-03-09] MEDS: *HR* OxyCODONE Immed Rel 5 MG TABLET PO PRN (21:35)
[2020-03-10] MEDS: Piperacillin/Tazobactam 3.375 GM in 0.9 % Sodium Chloride Mini Bag 100 ML IVPB SCH ×3 (03:09→16:59)
[2020-03-10] MEDS: *HR* Heparin 5,000 UNIT/ML VIAL SQ SCH ×3 (05:40→20:50)
[2020-03-10 06:03] LABS: Basophils % 0.2 %; Hematocrit 34.6 % (37.5-50.1); Hemoglobin 10.7 g/dL (12.9-16.9); Immature Granulocytes % 1.5 % (0-4); Lymphocytes # 0.4 K/mcL (0.6-4.6); Lymphocytes % 2.5 %; Mean Corpuscular HGB Conc 30.9 g/dL (31.6-35.5); Mean Corpuscular Hemoglobin 27.7 pg (28.0-33.3); Mean Corpuscular Volume 89.6 fL (83.0-100.0); Monocytes # 0.6 K/mcL (0.0-1.3); Monocytes % 3.8 %; Neutrophils # 15.2 K/mcL (1.6-8.9); Platelet Count 280 K/mcL (140-400); Red Blood Count 3.86 M/mcL (4.19-5.50); Red Cell Distribution Width 15.2 % (11.5-14.5); White Blood Count 16.5 K/mcL (4.3-11.1)
[2020-03-10 06:21] LABS: Calcium 8.8 mg/dL (8.6-10.3); Magnesium 1.8 mg/dL (1.6-2.6); Potassium 4.1 mEq/L (3.5-5.1)
[2020-03-10] MEDS ORDERED: 0.9 % Sodium Chloride 250 ML IVC PRN (07:05)
[2020-03-10] MEDS ORDERED: 0.9 % Sodium Chloride 1,000 ML PRIME SCH (07:15)
[2020-03-10] MEDS: amLODIPine 5 MG TABLET PO SCH (08:45)
[2020-03-10] MEDS: Insulin LISPRO 300 UNITS/3 ML VIAL SQ SCH ×4 (08:51→20:22)
[2020-03-10] MEDS ORDERED: *HR* Heparin 10,000 UNIT/10 ML VIAL IV PRN (14:55)
[2020-03-11] MEDS: *HR* Heparin 5,000 UNIT/ML VIAL SQ SCH ×3 (05:20→21:16)
[2020-03-11] MEDS: Piperacillin/Tazobactam 3.375 GM in 0.9 % Sodium Chloride Mini Bag 100 ML IVPB SCH ×2 (05:20→17:20)
[2020-03-11] MEDS: Insulin LISPRO 300 UNITS/3 ML VIAL SQ SCH ×4 (07:45→21:13)
[2020-03-11] MEDS: *HR* OxyCODONE Immed Rel 5 MG TABLET PO PRN ×2 (07:49→13:56)
[2020-03-11] MEDS: amLODIPine 5 MG TABLET PO SCH (07:49)
[2020-03-11 11:36] LABS: Basophils % 0.2 %; Eosinophils # 0.1 K/mcL (0.0-0.6); Eosinophils % 1.1 %; Hematocrit 32.5 % (37.5-50.1); Hemoglobin 10.2 g/dL (12.9-16.9); Lymphocytes # 0.6 K/mcL (0.6-4.6); Lymphocytes % 6.4 %; Mean Corpuscular HGB Conc 31.4 g/dL (31.6-35.5); Mean Corpuscular Hemoglobin 28.3 pg (28.0-33.3); Mean Platelet Volume 9.7 fL (9.4-12.4); Monocytes # 0.8 K/mcL (0.0-1.3); Monocytes % 8.8 %; Neutrophils # 7.3 K/mcL (1.6-8.9); Platelet Count 249 K/mcL (140-400); Red Blood Count 3.61 M/mcL (4.19-5.50); Red Cell Distribution Width 14.9 % (11.5-14.5); Segmented Neutrophils % 81.5 %
[2020-03-11 11:53] LABS: Calcium 8.3 mg/dL (8.6-10.3); Magnesium 1.8 mg/dL (1.6-2.6); Phosphorous 3.5 mg/dL (2.7-4.5); Potassium 3.6 mEq/L (3.5-5.1)
[2020-03-11] MEDS: *HR* HYDROmorphone (PF) 1 MG/ML SYRINGE IVP PRN (18:37)
[2020-03-12] MEDS: *HR* Heparin 5,000 UNIT/ML VIAL SQ SCH ×3 (06:14→21:58)
[2020-03-12] MEDS: Piperacillin/Tazobactam 3.375 GM in 0.9 % Sodium Chloride Mini Bag 100 ML IVPB SCH ×2 (06:14→18:18)
[2020-03-12] MEDS: amLODIPine 5 MG TABLET PO SCH (07:56)
[2020-03-12] MEDS: Insulin LISPRO 300 UNITS/3 ML VIAL SQ SCH ×4 (07:56→22:04)
[2020-03-12 09:37] LABS: Hematocrit 37.3 % (37.5-50.1); Hemoglobin 11.4 g/dL (12.9-16.9); Mean Corpuscular HGB Conc 30.6 g/dL (31.6-35.5); Mean Corpuscular Hemoglobin 28.1 pg (28.0-33.3); Mean Corpuscular Volume 92.1 fL (83.0-100.0); Mean Platelet Volume 9.2 fL (9.4-12.4); Platelet Count 298 K/mcL (140-400); Red Blood Count 4.05 M/mcL (4.19-5.50); Red Cell Distribution Width 15.1 % (11.5-14.5); White Blood Count 10.3 K/mcL (4.3-11.1)
[2020-03-12 10:00] LABS: Potassium 3.9 mEq/L (3.5-5.1)
[2020-03-12] MEDS: *HR* OxyCODONE Immed Rel 5 MG TABLET PO PRN ×2 (16:26→23:44)
[2020-03-13] MEDS: *HR* HYDROmorphone (PF) 1 MG/ML SYRINGE IVP PRN ×2 (02:44→23:21)
[2020-03-13 03:19] LABS: Hemoglobin 10.3 g/dL (12.9-16.9); Mean Corpuscular HGB Conc 30.3 g/dL (31.6-35.5); Mean Corpuscular Hemoglobin 28.1 pg (28.0-33.3); Mean Corpuscular Volume 92.6 fL (83.0-100.0); Mean Platelet Volume 9.3 fL (9.4-12.4); Platelet Count 255 K/mcL (140-400); Red Blood Count 3.67 M/mcL (4.19-5.50); Red Cell Distribution Width 14.9 % (11.5-14.5); White Blood Count 9.8 K/mcL (4.3-11.1)
[2020-03-13 03:39] LABS: Calcium 8.3 mg/dL (8.6-10.3); Potassium 3.9 mEq/L (3.5-5.1)
[2020-03-13] MEDS: Piperacillin/Tazobactam 3.375 GM in 0.9 % Sodium Chloride Mini Bag 100 ML IVPB SCH (05:34)
[2020-03-13] MEDS: *HR* Heparin 5,000 UNIT/ML VIAL SQ SCH ×3 (05:35→20:58)
[2020-03-13] MEDS: *HR* OxyCODONE Immed Rel 5 MG TABLET PO PRN ×2 (06:48→20:57)
[2020-03-13] MEDS: Insulin LISPRO 300 UNITS/3 ML VIAL SQ SCH ×4 (07:59→21:01)
[2020-03-13] MEDS ORDERED: 0.9 % Sodium Chloride 250 ML IVC PRN (08:04)
[2020-03-13] MEDS ORDERED: *HR* Heparin 10,000 UNIT/10 ML VIAL IV PRN ×2 (08:04)
[2020-03-13] MEDS: amLODIPine 5 MG TABLET PO SCH (08:18)
[2020-03-13] MEDS ORDERED: *HR* Heparin 10,000 UNIT/10 ML VIAL ONE (08:35)
[2020-03-13] MEDS: Ampicillin/Sulbactam 3,000 MG in 0.9 % Sodium Chloride Mini Bag 100 ML IVPB SCH (17:09)
[2020-03-14 05:42] LABS: Hematocrit 36.4 % (37.5-50.1); Hemoglobin 10.8 g/dL (12.9-16.9); Mean Corpuscular HGB Conc 29.7 g/dL (31.6-35.5); Mean Corpuscular Hemoglobin 27.7 pg (28.0-33.3); Mean Corpuscular Volume 93.3 fL (83.0-100.0); Mean Platelet Volume 9.2 fL (9.4-12.4); Platelet Count 272 K/mcL (140-400); Red Cell Distribution Width 15.2 % (11.5-14.5); White Blood Count 11.6 K/mcL (4.3-11.1)
[2020-03-14 06:16] LABS: Calcium 8.6 mg/dL (8.6-10.3)
[2020-03-14] MEDS: amLODIPine 5 MG TABLET PO SCH (07:37)
[2020-03-14] MEDS: Insulin LISPRO 300 UNITS/3 ML VIAL SQ SCH ×3 (07:38→16:27)
[2020-03-14] MEDS ORDERED: Lidocaine/EPI 1:100k 1% 50 ML VIAL ONE (10:02)
[2020-03-14] MEDS ORDERED: Heparin 1,000 UNITS/500 mL 500 ML ONE (10:02)
[2020-03-14] MEDS ORDERED: 0.9 % Sodium Chloride 500 ML ONE (10:20)
[2020-03-14] MEDS ORDERED: *HR* FentaNYL (PF) 100 MCG/2 ML VIAL IVP ONE (11:02)
[2020-03-14] MEDS ORDERED: *HR* Midazolam HCl 2 MG/2 ML VIAL IVP ONE (11:03)
[2020-03-14] MEDS ORDERED: *HR* Midazolam HCl 2 MG/2 ML VIAL ONE ×2 (11:08→20:04)
[2020-03-14] MEDS ORDERED: *HR* FentaNYL (PF) 100 MCG/2 ML VIAL ONE ×2 (11:08→20:04)
[2020-03-14] MEDS ORDERED: *HR* Heparin 5,000 UNIT/ML VIAL ONE (11:15)
[2020-03-14] MEDS: Ampicillin/Sulbactam 3,000 MG in 0.9 % Sodium Chloride Mini Bag 100 ML IVPB SCH (17:30)
[2020-03-14] MEDS ORDERED: ROPIVACAINE/PF/NS 0.25% 1 EACH SYRINGE INTRAART ONE (21:10)
[2020-03-14] MEDS ORDERED: Vancomycin 1,000 MG VIAL ONE (21:21)
[2020-03-14] MEDS ORDERED: Ondansetron ODT 4 MG TAB.RAPDIS SL PRN (23:32)
[2020-03-14] MEDS ORDERED: Naloxone 0.4 MG/ML INJ IVP PRN (23:32)
[2020-03-14] MEDS ORDERED: *HR* Dextrose 50 % in Water (Vial) 50 ML VIAL IVP PRN (23:32)
[2020-03-14] MEDS ORDERED: D5% in Water 1,000 ML IVC PRN (23:32)
[2020-03-14] MEDS ORDERED: Dextrose Gel 15 GM/37.5 ML TUBE PO PRN ×2 (23:32)
[2020-03-14] MEDS ORDERED: *HR* HYDROmorphone (PF) 1 MG/ML SYRINGE IVP PRN (23:32)
[2020-03-14] MEDS ORDERED: Acetaminophen 325 MG TABLET PO PRN (23:32)
[2020-03-15] MEDS: Insulin LISPRO 300 UNITS/3 ML VIAL SQ SCH ×5 (00:26→21:39)
[2020-03-15 06:08] LABS: Basophils # 0.1 K/mcL (0.0-0.2); Basophils % 0.4 %; Eosinophils # 0.1 K/mcL (0.0-0.6); Hematocrit 32.5 % (37.5-50.1); Hemoglobin 9.9 g/dL (12.9-16.9); Immature Granulocytes % 3.9 % (0-4); Lymphocytes # 0.9 K/mcL (0.6-4.6); Lymphocytes % 7.4 %; Mean Corpuscular HGB Conc 30.5 g/dL (31.6-35.5); Mean Corpuscular Hemoglobin 27.7 pg (28.0-33.3); Mean Corpuscular Volume 90.8 fL (83.0-100.0); Mean Platelet Volume 9.1 fL (9.4-12.4); Monocytes # 0.9 K/mcL (0.0-1.3); Monocytes % 7.8 %; Neutrophils # 9.3 K/mcL (1.6-8.9); Platelet Count 249 K/mcL (140-400); Red Blood Count 3.58 M/mcL (4.19-5.50); Red Cell Distribution Width 15.2 % (11.5-14.5); Segmented Neutrophils % 79.5 %; White Blood Count 11.7 K/mcL (4.3-11.1)
[2020-03-15 06:27] LABS: Calcium 8.7 mg/dL (8.6-10.3); Potassium 3.7 mEq/L (3.5-5.1)
[2020-03-15] MEDS ORDERED: 0.9 % Sodium Chloride 1,000 ML ONE (08:03)
[2020-03-15] MEDS ORDERED: *HR* Heparin 10,000 UNIT/10 ML VIAL IV PRN ×2 (08:53)
[2020-03-15] MEDS ORDERED: 0.9 % Sodium Chloride 250 ML IVC PRN (08:53)
[2020-03-15] MEDS ORDERED: 0.9 % Sodium Chloride 1,000 ML PRIME SCH (09:00)
[2020-03-15] MEDS: amLODIPine 5 MG TABLET PO SCH (15:26)
[2020-03-15] MEDS: Ampicillin/Sulbactam 3,000 MG in 0.9 % Sodium Chloride Mini Bag 100 ML IVPB SCH (16:06)
[2020-03-15] MEDS: *HR* Heparin 5,000 UNIT/ML VIAL SQ SCH ×2 (16:15→21:40)
[2020-03-15] MEDS: *HR* OxyCODONE Immed Rel 5 MG TABLET PO PRN (16:50)
[2020-03-16 04:26] LABS: Hematocrit 31.3 % (37.5-50.1); Hemoglobin 9.7 g/dL (12.9-16.9); Mean Corpuscular Hemoglobin 28.6 pg (28.0-33.3); Mean Corpuscular Volume 92.3 fL (83.0-100.0); Mean Platelet Volume 9.4 fL (9.4-12.4); Platelet Count 230 K/mcL (140-400); Red Blood Count 3.39 M/mcL (4.19-5.50); Red Cell Distribution Width 15.4 % (11.5-14.5); White Blood Count 9.6 K/mcL (4.3-11.1)
[2020-03-16 04:27] LABS: Basophils % 0.4 %; Eosinophils # 0.1 K/mcL (0.0-0.6); Eosinophils % 1.2 %; Hematocrit 31.3 % (37.5-50.1); Hemoglobin 9.6 g/dL (12.9-16.9); Immature Granulocytes % 3.6 % (0-4); Lymphocytes % 10.2 %; Mean Corpuscular HGB Conc 30.7 g/dL (31.6-35.5); Mean Corpuscular Hemoglobin 27.9 pg (28.0-33.3); Mean Platelet Volume 9.7 fL (9.4-12.4); Monocytes # 0.9 K/mcL (0.0-1.3); Monocytes % 9.8 %; Neutrophils # 7.2 K/mcL (1.6-8.9); Platelet Count 241 K/mcL (140-400); Red Blood Count 3.44 M/mcL (4.19-5.50); Red Cell Distribution Width 15.4 % (11.5-14.5); Segmented Neutrophils % 74.8 %; White Blood Count 9.6 K/mcL (4.3-11.1)
[2020-03-16 04:48] LABS: Calcium 8.4 mg/dL (8.6-10.3); Potassium 3.8 mEq/L (3.5-5.1)
[2020-03-16] MEDS: *HR* OxyCODONE Immed Rel 5 MG TABLET PO PRN ×2 (05:17→22:03)
[2020-03-16] MEDS: *HR* Heparin 5,000 UNIT/ML VIAL SQ SCH ×3 (05:18→21:29)
[2020-03-16] MEDS: amLODIPine 5 MG TABLET PO SCH (09:57)
[2020-03-16] MEDS: Insulin LISPRO 300 UNITS/3 ML VIAL SQ SCH ×4 (09:58→20:28)
[2020-03-16] MEDS: Ampicillin/Sulbactam 3,000 MG in 0.9 % Sodium Chloride Mini Bag 100 ML IVPB SCH (16:37)
[2020-03-17 04:56] LABS: Basophils % 0.5 %; Eosinophils # 0.1 K/mcL (0.0-0.6); Eosinophils % 1.3 %; Hematocrit 31.6 % (37.5-50.1); Hemoglobin 9.6 g/dL (12.9-16.9); Immature Granulocytes % 3.6 % (0-4); Lymphocytes % 12.8 %; Mean Corpuscular HGB Conc 30.4 g/dL (31.6-35.5); Mean Corpuscular Hemoglobin 27.6 pg (28.0-33.3); Mean Corpuscular Volume 90.8 fL (83.0-100.0); Mean Platelet Volume 9.8 fL (9.4-12.4); Monocytes # 0.9 K/mcL (0.0-1.3); Monocytes % 10.9 %; Neutrophils # 5.5 K/mcL (1.6-8.9); Platelet Count 240 K/mcL (140-400); Red Blood Count 3.48 M/mcL (4.19-5.50); Red Cell Distribution Width 15.5 % (11.5-14.5); Segmented Neutrophils % 70.9 %; White Blood Count 7.8 K/mcL (4.3-11.1)
[2020-03-17 05:10] LABS: Calcium 8.3 mg/dL (8.6-10.3); Potassium 3.7 mEq/L (3.5-5.1)
[2020-03-17] MEDS: *HR* Heparin 5,000 UNIT/ML VIAL SQ SCH ×3 (05:52→22:03)
[2020-03-17] MEDS: *HR* OxyCODONE Immed Rel 5 MG TABLET PO PRN ×3 (07:14→22:34)
[2020-03-17] MEDS ORDERED: *HR* Heparin 10,000 UNIT/10 ML VIAL IV PRN ×2 (07:44)
[2020-03-17] MEDS ORDERED: 0.9 % Sodium Chloride 250 ML IVC PRN (07:44)
[2020-03-17] MEDS: Insulin LISPRO 300 UNITS/3 ML VIAL SQ SCH ×4 (09:39→22:03)
[2020-03-17 10:27] LABS: Albumin/Globulin Ratio 0.9 (1.1-2.2); Bilirubin,Direct 0.3 mg/dL (0.0-0.2); Bilirubin,Indirect 0.5 mg/dL (0.0-1.0); Bilirubin,Total 0.8 mg/dL (0.3-1.0); Globulin 3.5 g/dL (2.4-3.5); Total Protein 6.5 g/dL (6.4-8.9)
[2020-03-17] MEDS: amLODIPine 5 MG TABLET PO SCH (12:59)
[2020-03-17] MEDS: Ampicillin/Sulbactam 3,000 MG in 0.9 % Sodium Chloride Mini Bag 100 ML IVPB SCH (17:05)
[2020-03-18 02:29] LABS: Hematocrit 31.5 % (37.5-50.1); Hemoglobin 9.5 g/dL (12.9-16.9); Mean Corpuscular HGB Conc 30.2 g/dL (31.6-35.5); Mean Corpuscular Hemoglobin 27.8 pg (28.0-33.3); Mean Corpuscular Volume 92.1 fL (83.0-100.0); Mean Platelet Volume 9.8 fL (9.4-12.4); Platelet Count 257 K/mcL (140-400); Red Blood Count 3.42 M/mcL (4.19-5.50); Red Cell Distribution Width 15.6 % (11.5-14.5); White Blood Count 8.9 K/mcL (4.3-11.1)
[2020-03-18 02:50] LABS: Calcium 8.4 mg/dL (8.6-10.3); Potassium 3.7 mEq/L (3.5-5.1)
[2020-03-18] MEDS: *HR* OxyCODONE Immed Rel 5 MG TABLET PO PRN ×2 (04:36→23:01)
[2020-03-18] MEDS: *HR* Heparin 5,000 UNIT/ML VIAL SQ SCH ×3 (04:37→19:41)
[2020-03-18] MEDS: Insulin LISPRO 300 UNITS/3 ML VIAL SQ SCH ×4 (07:31→21:40)
[2020-03-18] MEDS: amLODIPine 5 MG TABLET PO SCH (07:32)
[2020-03-18] MEDS: Ampicillin/Sulbactam 3,000 MG in 0.9 % Sodium Chloride Mini Bag 100 ML IVPB SCH (16:47)
[2020-03-19] MEDS: *HR* Heparin 5,000 UNIT/ML VIAL SQ SCH ×3 (05:13→21:56)
[2020-03-19] MEDS: *HR* OxyCODONE Immed Rel 5 MG TABLET PO PRN ×3 (05:17→21:56)
[2020-03-19 06:06] LABS: Calcium 8.6 mg/dL (8.6-10.3); Potassium 4.8 mEq/L (3.5-5.1)
[2020-03-19 06:30] LABS: Hematocrit 30.1 % (37.5-50.1); Mean Corpuscular HGB Conc 29.9 g/dL (31.6-35.5); Mean Corpuscular Hemoglobin 27.4 pg (28.0-33.3); Mean Corpuscular Volume 91.8 fL (83.0-100.0); Mean Platelet Volume 9.6 fL (9.4-12.4); Platelet Count 235 K/mcL (140-400); Red Blood Count 3.28 M/mcL (4.19-5.50); Red Cell Distribution Width 15.4 % (11.5-14.5); White Blood Count 8.8 K/mcL (4.3-11.1)
[2020-03-19] MEDS: Insulin LISPRO 300 UNITS/3 ML VIAL SQ SCH ×4 (08:32→21:50)
[2020-03-19] MEDS: amLODIPine 5 MG TABLET PO SCH (08:33)
[2020-03-19] MEDS: Ampicillin/Sulbactam 3,000 MG in 0.9 % Sodium Chloride Mini Bag 100 ML IVPB SCH (16:18)
[2020-03-20] MEDS: *HR* Heparin 5,000 UNIT/ML VIAL SQ SCH ×3 (05:41→20:41)
[2020-03-20] MEDS: *HR* OxyCODONE Immed Rel 5 MG TABLET PO PRN ×3 (06:23→22:52)
[2020-03-20] MEDS: Insulin LISPRO 300 UNITS/3 ML VIAL SQ SCH ×4 (08:39→20:37)
[2020-03-20 10:58] LABS: Hematocrit 28.9 % (37.5-50.1); Hemoglobin 8.7 g/dL (12.9-16.9); Mean Corpuscular HGB Conc 30.1 g/dL (31.6-35.5); Mean Corpuscular Hemoglobin 28.2 pg (28.0-33.3); Mean Corpuscular Volume 93.5 fL (83.0-100.0); Mean Platelet Volume 9.7 fL (9.4-12.4); Platelet Count 211 K/mcL (140-400); Red Blood Count 3.09 M/mcL (4.19-5.50); Red Cell Distribution Width 15.4 % (11.5-14.5); White Blood Count 9.6 K/mcL (4.3-11.1)
[2020-03-20 11:07] LABS: Calcium 8.7 mg/dL (8.6-10.3); Potassium 4.4 mEq/L (3.5-5.1)
[2020-03-20] MEDS: amLODIPine 5 MG TABLET PO SCH (13:06)
[2020-03-20] MEDS: Ampicillin/Sulbactam 3,000 MG in 0.9 % Sodium Chloride Mini Bag 100 ML IVPB SCH (15:50)
[2020-03-21] MEDS ORDERED: *HR* OxyCODONE Immed Rel 5 MG TABLET PO STA (01:42)
[2020-03-21] MEDS: *HR* Heparin 5,000 UNIT/ML VIAL SQ SCH ×2 (05:51→12:03)
[2020-03-21 06:13] LABS: Hematocrit 28.8 % (37.5-50.1); Hemoglobin 8.7 g/dL (12.9-16.9); Mean Corpuscular HGB Conc 30.2 g/dL (31.6-35.5); Mean Corpuscular Hemoglobin 27.5 pg (28.0-33.3); Mean Corpuscular Volume 91.1 fL (83.0-100.0); Mean Platelet Volume 9.6 fL (9.4-12.4); Platelet Count 222 K/mcL (140-400); Red Blood Count 3.16 M/mcL (4.19-5.50); Red Cell Distribution Width 15.5 % (11.5-14.5); White Blood Count 9.5 K/mcL (4.3-11.1)
[2020-03-21 06:32] LABS: Calcium 8.8 mg/dL (8.6-10.3); Potassium 4.7 mEq/L (3.5-5.1)
[2020-03-21] MEDS: Insulin LISPRO 300 UNITS/3 ML VIAL SQ SCH ×2 (07:14→11:42)
[2020-03-21] MEDS ORDERED: 0.9 % Sodium Chloride 250 ML IVC PRN (08:03)
[2020-03-21] MEDS ORDERED: *HR* Heparin 10,000 UNIT/10 ML VIAL IV PRN (08:03)
[2020-03-21 12:54] VITALS: BP 164/95
[2020-03-21] MEDS: amLODIPine 5 MG TABLET PO SCH (13:45)
[2020-03-21] MEDS: Ampicillin/Sulbactam 3,000 MG in 0.9 % Sodium Chloride Mini Bag 100 ML IVPB SCH (13:46)
[2020-03-21] MEDS: *HR* OxyCODONE Immed Rel 5 MG TABLET PO PRN (15:43)
== END 2020-03-21 15:54 | disposition home health service (06) | DRG 853 ==
LOC: 3ANU 11:38 → EMEROOARM 11:38 → SUATTDRO 14:40 → 3ANU 15:28 → SUATTDRO 03-08 18:07 → 2ANU 03-14 20:37
PROVIDERS: ADMIT Internal Medicine; ATTEND Internal Medicine
PROC: IRPERMA (2020-03-14 12:00)

== ENCOUNTER 2020-06-27 08:55 | Inpatient (IN) ==
[2020-06-27] MEDS ORDERED: 0.9 % Sodium Chloride 1,000 ML IVC ONE (09:36)
[2020-06-27] MEDS ORDERED: Isovue-370 500 ML BOTTLE IVP ONE (09:37)
[2020-06-27 09:54] LABS: Basophils % 0.4 %; Eosinophils # 0.2 K/mcL (0.0-0.6); Eosinophils % 1.4 %; Hematocrit 32.8 % (37.5-50.1); Hemoglobin 10.4 g/dL (12.9-16.9); Immature Granulocytes % 0.5 % (0-4); Lymphocytes # 0.8 K/mcL (0.6-4.6); Lymphocytes % 7.5 %; Mean Corpuscular HGB Conc 31.7 g/dL (31.6-35.5); Mean Corpuscular Hemoglobin 28.7 pg (28.0-33.3); Mean Corpuscular Volume 90.4 fL (83.0-100.0); Mean Platelet Volume 9.1 fL (9.4-12.4); Monocytes % 9.2 %; Neutrophils # 8.7 K/mcL (1.6-8.9); Platelet Count 311 K/mcL (140-400); Red Blood Count 3.63 M/mcL (4.19-5.50); Red Cell Distribution Width 14.4 % (11.5-14.5); White Blood Count 10.7 K/mcL (4.3-11.1)
[2020-06-27 10:01] LABS: Calcium 9.3 mg/dL (8.6-10.3); Potassium 3.6 mEq/L (3.5-5.1)
[2020-06-27] MEDS ORDERED: Naloxone 0.4 MG/ML INJ IVP PRN (11:45)
[2020-06-27] MEDS ORDERED: Dextrose Gel 15 GM/37.5 ML TUBE PO PRN ×2 (12:34)
[2020-06-27] MEDS ORDERED: D5% in Water 1,000 ML IVC PRN (12:34)
[2020-06-27] MEDS ORDERED: *HR* Dextrose 50 % in Water (Vial) 50 ML VIAL IVP PRN (12:34)
[2020-06-27 12:37] LABS: Estimated Average Glucose 134 mg/dl; Hemoglobin A1C 6.3 %
[2020-06-27] MEDS ORDERED: Mag Hydrox/Al Hydrox/Simeth 30 ML UDC PO PRN (14:31)
[2020-06-27] MEDS ORDERED: 0.9 % Sodium Chloride 250 ML IVC PRN (14:48)
[2020-06-27] MEDS ORDERED: *HR* Heparin 10,000 UNIT/10 ML VIAL IV PRN (14:48)
[2020-06-27] MEDS ORDERED: 0.9 % Sodium Chloride 1,000 ML PRIME SCH (15:00)
[2020-06-27] MEDS ORDERED: DAPTOmycin 500 MG in 0.9 % Sodium Chloride 100 ML IVPB SCH (15:30)
[2020-06-27 17:16] LABS: Hepatitis B Surface Antibody < 3.10 mIU/mL
[2020-06-27 17:16] LABS: Adenovirus Not Detected (Not Detect); Bordetella Pertussis Not Detected (Not Detect); Chlamydophila pneumoniae Not Detected (Not Detect); Coronavirus 229E Not Detected (Not Detect); Coronavirus HKU1 Not Detected (Not Detect); Coronavirus NL63 Not Detected (Not Detect); Coronavirus OC43 Not Detected (Not Detect); Human Metapneumovirus Not Detected (Not Detect); Human Rhinovirus/Enterovirus Not Detected (Not Detect); Influenza A Subtype 2009 H1 Not Detected (Not Detect); Influenza B Not Detected (Not Detect); Mycoplasma pneumoniae Not Detected (Not Detect); Parainfluenza Virus 1 Not Detected (Not Detect); Parainfluenza Virus 2 Not Detected (Not Detect); Parainfluenza Virus 3 Not Detected (Not Detect); Parainfluenza Virus 4 Not Detected (Not Detect); Respiratory Syncytial Virus Not Detected (Not Detect); SARS-CoV-2 Not Detected (Not Detect)
[2020-06-27 17:27] LABS: Hepatitis B Surface Antigen Nonreactive (Nonreactive)
[2020-06-27] MEDS: Insulin LISPRO 300 UNITS/3 ML VIAL SQ SCH (17:51)
[2020-06-27] MEDS: Piperacillin/Tazobactam 3.375 GM in 0.9 % Sodium Chloride Mini Bag 100 ML IVPB SCH (17:55)
[2020-06-27] MEDS: *HR* Heparin 5,000 UNIT/ML VIAL SQ SCH (20:57)
[2020-06-27] MEDS ORDERED: Insulin LISPRO 300 UNITS/3 ML VIAL SQ SCH (21:00)
[2020-06-28] MEDS: Piperacillin/Tazobactam 3.375 GM in 0.9 % Sodium Chloride Mini Bag 100 ML IVPB SCH ×3 (00:52→20:15)
[2020-06-28 01:34] LABS: Basophils % 0.4 %; Eosinophils # 0.1 K/mcL (0.0-0.6); Eosinophils % 1.3 %; Hemoglobin 9.2 g/dL (12.9-16.9); Immature Granulocytes % 0.2 % (0-4); Lymphocytes % 8.9 %; Mean Corpuscular HGB Conc 32.9 g/dL (31.6-35.5); Mean Corpuscular Hemoglobin 29.9 pg (28.0-33.3); Mean Corpuscular Volume 90.9 fL (83.0-100.0); Mean Platelet Volume 9.3 fL (9.4-12.4); Monocytes # 0.9 K/mcL (0.0-1.3); Monocytes % 7.9 %; Neutrophils # 8.8 K/mcL (1.6-8.9); Platelet Count 289 K/mcL (140-400); Red Blood Count 3.08 M/mcL (4.19-5.50); Red Cell Distribution Width 14.4 % (11.5-14.5); Segmented Neutrophils % 81.3 %; White Blood Count 10.8 K/mcL (4.3-11.1)
[2020-06-28 01:56] LABS: Calcium 8.3 mg/dL (8.6-10.3); Potassium 3.8 mEq/L (3.5-5.1)
[2020-06-28] MEDS: *HR* Heparin 5,000 UNIT/ML VIAL SQ SCH ×3 (04:51→20:16)
[2020-06-28] MEDS: Insulin LISPRO 300 UNITS/3 ML VIAL SQ SCH ×3 (07:15→15:59)
[2020-06-28] MEDS ORDERED: Renal Vitamin 1 CAP CAPSULE PO SCH (09:00)
[2020-06-28] MEDS ORDERED: amLODIPine 5 MG TABLET PO SCH (09:00)
[2020-06-28] MEDS ORDERED: *HR* Midazolam HCl 2 MG/2 ML VIAL ONE (16:12)
[2020-06-28] MEDS ORDERED: *HR* Propofol 200 MG/20 ML VIAL IVP ONE (16:12)
[2020-06-28] MEDS ORDERED: *HR* FentaNYL (PF) 100 MCG/2 ML VIAL ONE (16:12)
[2020-06-28] MEDS ORDERED: *HR* Succinylcholine 200 MG/10 ML VIAL IVP ONE (16:15)
[2020-06-28] MEDS ORDERED: Lidocaine -MPF 2% 2 ML VIAL ONE (16:15)
[2020-06-28] MEDS ORDERED: ROPIVACAINE/PF/NS 0.25% 1 EACH SYRINGE INTRAART ONE (16:16)
[2020-06-28] MEDS ORDERED: Vancomycin 1,000 MG VIAL ONE (16:32)
[2020-06-28] MEDS ORDERED: Naloxone 0.4 MG/ML INJ IVP PRN ×2 (16:40→18:05)
[2020-06-28] MEDS ORDERED: Ondansetron 4 MG/2 ML VIAL IVP PRN ×2 (16:40→18:05)
[2020-06-28] MEDS ORDERED: Nitroglycerin 0.4 MG TAB.SUBL SL PRN ×2 (16:40→18:05)
[2020-06-28] MEDS ORDERED: *HR* FentaNYL (PF) 100 MCG/2 ML VIAL IVP PRN ×2 (16:40→18:05)
[2020-06-28] MEDS ORDERED: *HR* Heparin 10,000 UNIT/10 ML VIAL IV PRN (18:05)
[2020-06-28] MEDS ORDERED: *HR* Dextrose 50 % in Water (Vial) 50 ML VIAL IVP PRN (18:05)
[2020-06-28] MEDS ORDERED: 0.9 % Sodium Chloride 1,000 ML PRIME SCH (18:05)
[2020-06-28] MEDS ORDERED: Dextrose Gel 15 GM/37.5 ML TUBE PO PRN ×2 (18:05)
[2020-06-28] MEDS ORDERED: Mag Hydrox/Al Hydrox/Simeth 30 ML UDC PO PRN (18:05)
[2020-06-28] MEDS ORDERED: 0.9 % Sodium Chloride 250 ML IVC PRN (18:05)
[2020-06-28] MEDS ORDERED: D5% in Water 1,000 ML IVC PRN (18:05)
[2020-06-28] MEDS ORDERED: Piperacillin/Tazobactam 3.375 GM in 0.9 % Sodium Chloride Mini Bag 100 ML IVPB SCH (20:00)
[2020-06-28] MEDS ORDERED: Insulin LISPRO 300 UNITS/3 ML VIAL SUBQ SCH (21:00)
[2020-06-29] MEDS: *HR* Heparin 5,000 UNIT/ML VIAL SQ SCH (04:56)
[2020-06-29 05:19] LABS: Basophils % 0.4 %; Eosinophils # 0.2 K/mcL (0.0-0.6); Eosinophils % 3.1 %; Hematocrit 28.7 % (37.5-50.1); Hemoglobin 8.9 g/dL (12.9-16.9); Immature Granulocytes % 0.5 % (0-4); Lymphocytes # 0.8 K/mcL (0.6-4.6); Lymphocytes % 10.9 %; Mean Corpuscular Hemoglobin 28.9 pg (28.0-33.3); Mean Corpuscular Volume 93.2 fL (83.0-100.0); Mean Platelet Volume 9.2 fL (9.4-12.4); Monocytes # 0.8 K/mcL (0.0-1.3); Monocytes % 9.9 %; Neutrophils # 5.7 K/mcL (1.6-8.9); Platelet Count 270 K/mcL (140-400); Red Blood Count 3.08 M/mcL (4.19-5.50); Red Cell Distribution Width 14.3 % (11.5-14.5); Segmented Neutrophils % 75.2 %; White Blood Count 7.5 K/mcL (4.3-11.1)
[2020-06-29 05:38] LABS: Calcium 8.7 mg/dL (8.6-10.3)
[2020-06-29 05:39] LABS: % Iron Saturation 21 % (20-55); Iron 43 mcg/dL (65-175); Transferrin 143 mg/dL (203-362)
[2020-06-29] MEDS: Insulin LISPRO 300 UNITS/3 ML VIAL SUBQ SCH ×2 (07:38→11:00)
[2020-06-29] MEDS: Piperacillin/Tazobactam 3.375 GM in 0.9 % Sodium Chloride Mini Bag 100 ML IVPB SCH (07:52)
[2020-06-29] MEDS ORDERED: Ergocalciferol (VIT D2) 50,000 UNIT (1.25MG) CAP PO SCH ×2 (09:00)
[2020-06-29] MEDS ORDERED: Renal Vitamin 1 CAP CAPSULE PO SCH (09:00)
[2020-06-29] MEDS ORDERED: amLODIPine 5 MG TABLET PO SCH (09:00)
[2020-06-29 10:50] VITALS: BP 143/70
[2020-06-29] MEDS ORDERED: DAPTOmycin 700 MG in 0.9 % Sodium Chloride 100 ML IVPB SCH (16:00)
[2020-06-29] MEDS ORDERED: DAPTOmycin 500 MG in 0.9 % Sodium Chloride 100 ML IVPB SCH (16:00)
== END 2020-06-29 15:37 | disposition home or self-care (01) | DRG 853 ==
LOC: EMEROOARM 08:55 → CDU 08:55 → SUATTDRO 12:21 → CDU 13:16 → 2ANU 17:21
PROVIDERS: ADMIT Internal Medicine; ATTEND Family Medicine

== ENCOUNTER 2021-09-16 10:13 | Inpatient (IN) ==
[2021-09-16 10:48] LABS: Basophils % 0.2 %; Eosinophils % 0.3 %; Hematocrit 41.9 % (37.5-50.1); Hemoglobin 13.3 g/dL (12.9-16.9); Immature Granulocytes % 0.9 % (0-4); Lymphocytes # 0.4 K/mcL (0.6-4.6); Lymphocytes % 2.7 %; Mean Corpuscular HGB Conc 31.7 g/dL (31.6-35.5); Mean Corpuscular Hemoglobin 30.4 pg (28.0-33.3); Mean Corpuscular Volume 95.9 fL (83.0-100.0); Monocytes # 1.1 K/mcL (0.0-1.3); Monocytes % 8.3 %; Neutrophils # 11.7 K/mcL (1.6-8.9); Nucleated Red Blood Cells 0.2 /100 WBC (0); Platelet Count 187 K/mcL (140-400); Red Blood Count 4.37 M/mcL (4.19-5.50); Red Cell Distribution Width 15.9 % (11.5-14.5); Segmented Neutrophils % 87.6 %; White Blood Count 13.3 K/mcL (4.3-11.1)
[2021-09-16] MEDS ORDERED: *HR* HYDROcodone/Acet 5/325 mg TABLET PO ONE (11:28)
[2021-09-16 11:39] LABS: Albumin 3.4 g/dL (3.5-5.7); Albumin/Globulin Ratio 1.3 (1.1-2.2); Bilirubin,Direct 0.6 mg/dL (0.0-0.2); Bilirubin,Indirect 0.8 mg/dL (0.0-1.0); Bilirubin,Total 1.4 mg/dL (0.3-1.0); Calcium 8.5 mg/dL (8.6-10.3); Globulin 2.7 g/dL (2.4-3.5); Potassium 4.2 mEq/L (3.5-5.1); Total Protein 6.1 g/dL (6.4-8.9); Troponin I 0.08 ng/mL (< 0.04)
[2021-09-16] MEDS ORDERED: Furosemide 40 MG/4 ML VIAL IVP ONE (11:40)
[2021-09-16] MEDS ORDERED: Melatonin 3 MG TABLET PO PRN (13:29)
[2021-09-16] MEDS ORDERED: Naloxone 0.4 MG/ML INJ IVP PRN (13:29)
[2021-09-16] MEDS ORDERED: Ondansetron ODT 4 MG TAB.RAPDIS SL PRN (13:29)
[2021-09-16] MEDS ORDERED: D5% in Water 1,000 ML IVC PRN (13:35)
[2021-09-16] MEDS ORDERED: Dextrose 4 GM Chewable Tablets PO PRN ×2 (13:35)
[2021-09-16] MEDS ORDERED: *HR* Dextrose 50 % in Water (Syg) 50 ML SYRINGE IVP PRN (13:35)
[2021-09-16] MEDS: Insulin LISPRO 300 UNITS/3 ML VIAL SUBQ SCH ×2 (16:11→21:00)
[2021-09-16] MEDS ORDERED: [UNRECOGNIZED DRUG - OTHER] PERITONEAL SCH (19:00)
[2021-09-16] MEDS: Morphine Sulfate Oral CONC 10 MG/0.5 ML ORAL.SYG SL PRN (21:05)
[2021-09-16] MEDS: *HR* Heparin 5,000 UNIT/ML VIAL SQ SCH (21:09)
[2021-09-16] MEDS: Furosemide 40 MG/4 ML VIAL IVP SCH (21:10)
[2021-09-16] MEDS: Simethicone 80 MG TAB.CHEW PO PRN (21:29)
[2021-09-16] MEDS ORDERED: Perit. Dialysis with Dex 4.25% 6,000 ML PERITONEAL SCH (21:30)
[2021-09-16] MEDS ORDERED: Perit. Dialysis with Dex 2.5 % 6,000 ML PERITONEAL ONE (22:00)
[2021-09-17] MEDS ORDERED: *HR* HYDROmorphone (PF) 1 MG/ML SYRINGE IVP ONE (00:51)
[2021-09-17 02:01] LABS: Hepatitis B Surface Antibody < 3.10 mIU/mL
[2021-09-17 03:13] LABS: Basophils % 0.3 %; Eosinophils # 0.1 K/mcL (0.0-0.6); Hematocrit 38.3 % (37.5-50.1); Hemoglobin 12.8 g/dL (12.9-16.9); Immature Granulocytes % 0.9 % (0-4); Lymphocytes # 0.6 K/mcL (0.6-4.6); Lymphocytes % 5.3 %; Mean Corpuscular HGB Conc 33.4 g/dL (31.6-35.5); Mean Corpuscular Hemoglobin 31.5 pg (28.0-33.3); Mean Corpuscular Volume 94.3 fL (83.0-100.0); Monocytes % 9.7 %; Neutrophils # 8.8 K/mcL (1.6-8.9); Platelet Count 165 K/mcL (140-400); Red Blood Count 4.06 M/mcL (4.19-5.50); Red Cell Distribution Width 15.6 % (11.5-14.5); Segmented Neutrophils % 82.8 %; White Blood Count 10.6 K/mcL (4.3-11.1)
[2021-09-17 03:16] LABS: Hepatitis B Surface Antigen Nonreactive (Nonreactive)
[2021-09-17 03:33] LABS: Calcium 8.2 mg/dL (8.6-10.3); Potassium 3.4 mEq/L (3.5-5.1)
[2021-09-17] MEDS: *HR* Heparin 5,000 UNIT/ML VIAL SQ SCH ×3 (05:52→20:10)
[2021-09-17] MEDS: Morphine Sulfate Oral CONC 10 MG/0.5 ML ORAL.SYG SL PRN ×2 (08:56→14:57)
[2021-09-17] MEDS: Furosemide 40 MG/4 ML VIAL IVP SCH (08:57)
[2021-09-17] MEDS: Simethicone 80 MG TAB.CHEW PO PRN ×2 (08:57→15:02)
[2021-09-17] MEDS: Insulin LISPRO 300 UNITS/3 ML VIAL SUBQ SCH ×4 (09:01→20:24)
[2021-09-17 10:45] LABS: Adenovirus Not Detected (Not Detect); Bordetella Pertussis Not Detected (Not Detect); Chlamydophila pneumoniae Not Detected (Not Detect); Coronavirus 229E Not Detected (Not Detect); Coronavirus HKU1 Not Detected (Not Detect); Coronavirus NL63 Not Detected (Not Detect); Coronavirus OC43 Not Detected (Not Detect); Human Metapneumovirus Not Detected (Not Detect); Human Rhinovirus/Enterovirus Not Detected (Not Detect); Influenza A Subtype 2009 H1 Not Detected (Not Detect); Influenza B Not Detected (Not Detect); Mycoplasma pneumoniae Not Detected (Not Detect); Parainfluenza Virus 1 Not Detected (Not Detect); Parainfluenza Virus 2 Not Detected (Not Detect); Parainfluenza Virus 3 Not Detected (Not Detect); Parainfluenza Virus 4 Not Detected (Not Detect); Respiratory Syncytial Virus Not Detected (Not Detect); SARS-CoV-2 Not Detected (Not Detect)
[2021-09-17] MEDS ORDERED: Perit. Dialysis with Dex 4.25% 6,000 ML PERITONEAL SCH (19:00)
[2021-09-17] MEDS ORDERED: Perit. Dialysis with Dex 2.5 % 6,000 ML PERITONEAL ONE (19:00)
[2021-09-17] MEDS: Gentamicin Oint 15 GM TUBE TP SCH (19:42)
[2021-09-18] MEDS: Morphine Sulfate Oral CONC 10 MG/0.5 ML ORAL.SYG SL PRN ×2 (03:33→09:44)
[2021-09-18] MEDS: *HR* Heparin 5,000 UNIT/ML VIAL SQ SCH ×3 (05:08→21:36)
[2021-09-18] MEDS: Insulin LISPRO 300 UNITS/3 ML VIAL SUBQ SCH ×4 (07:30→20:43)
[2021-09-18 09:34] LABS: Basophils % 0.2 %; Eosinophils # 0.1 K/mcL (0.0-0.6); Eosinophils % 0.6 %; Hematocrit 37.3 % (37.5-50.1); Hemoglobin 12.1 g/dL (12.9-16.9); Immature Granulocytes % 0.7 % (0-4); Lymphocytes # 0.3 K/mcL (0.6-4.6); Lymphocytes % 2.8 %; Mean Corpuscular HGB Conc 32.4 g/dL (31.6-35.5); Mean Corpuscular Hemoglobin 30.8 pg (28.0-33.3); Mean Corpuscular Volume 94.9 fL (83.0-100.0); Mean Platelet Volume 9.8 fL (9.4-12.4); Monocytes # 1.1 K/mcL (0.0-1.3); Monocytes % 9.6 %; Neutrophils # 9.7 K/mcL (1.6-8.9); Platelet Count 132 K/mcL (140-400); Red Blood Count 3.93 M/mcL (4.19-5.50); Red Cell Distribution Width 15.7 % (11.5-14.5); Segmented Neutrophils % 86.1 %; White Blood Count 11.2 K/mcL (4.3-11.1)
[2021-09-18 09:55] LABS: Calcium 7.5 mg/dL (8.6-10.3); Potassium 3.6 mEq/L (3.5-5.1)
[2021-09-18 11:18] LABS: RBC,Peritoneal Fluid 8000 RBC/mcL
[2021-09-18] MEDS: Acetaminophen 325 MG TABLET PO PRN (12:12)
[2021-09-18] MEDS: Gentamicin Oint 15 GM TUBE TP SCH (12:13)
[2021-09-18 12:28] LABS: Basophils,Peritoneal Fluid 0 %; Eosinophils,Peritoneal Fluid 0 %
[2021-09-18 12:30] LABS: Appearance of Peritoneal Fl CLOUDY (Clear)
[2021-09-18] MEDS: Furosemide 40 MG/4 ML VIAL IVP SCH ×2 (13:15→17:54)
[2021-09-18] MEDS ORDERED: Cholecalciferol (D-3) 1,000 UNIT (25MCG) TABLET PO SCH (13:45)
[2021-09-18] MEDS ORDERED: calcitrioL 0.25 MCG CAPSULE PO SCH (13:45)
[2021-09-18] MEDS: *HR* HYDROcodone/Acet 5/325 mg TABLET PO PRN ×2 (15:21→23:25)
[2021-09-18] MEDS: Renal Vitamin 1 CAP CAPSULE PO SCH (15:22)
[2021-09-18] MEDS: Simethicone 80 MG TAB.CHEW PO PRN (15:22)
[2021-09-18 16:12] LABS: Phosphorous 6.8 mg/dL (2.7-4.5)
[2021-09-18] MEDS ORDERED: Perit. Dialysis with Dex 4.25% 6,000 ML PERITONEAL SCH ×3 (19:00)
[2021-09-18] MEDS ORDERED: Perit. Dialysis with Dex 2.5 % 6,000 ML PERITONEAL ONE (19:00)
[2021-09-19 00:58] LABS: Hemoglobin 12.2 g/dL (12.9-16.9); Mean Corpuscular HGB Conc 31.3 g/dL (31.6-35.5); Mean Corpuscular Hemoglobin 30.7 pg (28.0-33.3); Mean Corpuscular Volume 98.2 fL (83.0-100.0); Mean Platelet Volume 9.8 fL (9.4-12.4); Platelet Count 119 K/mcL (140-400); Red Blood Count 3.97 M/mcL (4.19-5.50); Red Cell Distribution Width 15.7 % (11.5-14.5); White Blood Count 11.3 K/mcL (4.3-11.1)
[2021-09-19 03:46] LABS: Calcium 7.2 mg/dL (8.6-10.3); Potassium 3.4 mEq/L (3.5-5.1)
[2021-09-19] MEDS: Insulin LISPRO 300 UNITS/3 ML VIAL SUBQ SCH ×4 (09:04→21:26)
[2021-09-19] MEDS: Spironolactone 25 MG TABLET PO SCH (09:08)
[2021-09-19] MEDS: Renal Vitamin 1 CAP CAPSULE PO SCH (09:08)
[2021-09-19] MEDS: *HR* HYDROcodone/Acet 5/325 mg TABLET PO PRN ×2 (09:09→20:13)
[2021-09-19] MEDS: *HR* Heparin 5,000 UNIT/ML VIAL SQ SCH ×3 (09:09→21:30)
[2021-09-19] MEDS: Furosemide 40 MG/4 ML VIAL IVP SCH ×2 (09:09→16:58)
[2021-09-19] MEDS: Gentamicin Oint 15 GM TUBE TP SCH (09:10)
[2021-09-19] MEDS ORDERED: 0.9 % Sodium Chloride 250 ML IVC PRN (14:14)
[2021-09-19] MEDS ORDERED: 0.9 % Sodium Chloride 1,000 ML PRIME SCH (14:15)
[2021-09-19] MEDS ORDERED: Vancomycin 2,000 MG/520 ML IV.SOLN IVPB ONE ×2 (14:16→21:00)
[2021-09-19] MEDS: Piperacillin/Tazobactam 3.375 GM in 0.9 % Sodium Chloride Mini Bag 100 ML IVPB SCH (17:04)
[2021-09-19] MEDS: Cholecalciferol (D-3) 1,000 UNIT (25MCG) TABLET PO SCH (17:14)
[2021-09-19] MEDS: calcitrioL 0.25 MCG CAPSULE PO SCH (17:14)
[2021-09-20] MEDS: Nystatin POWDER 30 GM BOTTLE TP SCH ×4 (02:59→20:12)
[2021-09-20] MEDS: *HR* HYDROcodone/Acet 5/325 mg TABLET PO PRN ×2 (04:16→12:58)
[2021-09-20] MEDS: Piperacillin/Tazobactam 3.375 GM in 0.9 % Sodium Chloride Mini Bag 100 ML IVPB SCH (05:13)
[2021-09-20] MEDS: *HR* Heparin 5,000 UNIT/ML VIAL SQ SCH ×3 (05:13→20:12)
[2021-09-20 06:13] LABS: Calcium 8.2 mg/dL (8.6-10.3); Potassium 3.6 mEq/L (3.5-5.1)
[2021-09-20] MEDS: Insulin LISPRO 300 UNITS/3 ML VIAL SUBQ SCH ×4 (07:43→20:09)
[2021-09-20 07:49] LABS: Hematocrit 36.5 % (37.5-50.1); Hemoglobin 12.3 g/dL (12.9-16.9); Mean Corpuscular HGB Conc 33.7 g/dL (31.6-35.5); Mean Corpuscular Hemoglobin 31.1 pg (28.0-33.3); Mean Corpuscular Volume 92.4 fL (83.0-100.0); Mean Platelet Volume 9.9 fL (9.4-12.4); Platelet Count 128 K/mcL (140-400); Red Blood Count 3.95 M/mcL (4.19-5.50); Red Cell Distribution Width 15.4 % (11.5-14.5); White Blood Count 11.6 K/mcL (4.3-11.1)
[2021-09-20] MEDS: Cholecalciferol (D-3) 1,000 UNIT (25MCG) TABLET PO SCH (08:56)
[2021-09-20] MEDS: Renal Vitamin 1 CAP CAPSULE PO SCH (08:56)
[2021-09-20] MEDS: calcitrioL 0.25 MCG CAPSULE PO SCH (08:56)
[2021-09-20] MEDS: Spironolactone 25 MG TABLET PO SCH (08:56)
[2021-09-20] MEDS: Furosemide 40 MG/4 ML VIAL IVP SCH ×2 (08:57→19:13)
[2021-09-20] MEDS: Gentamicin Oint 15 GM TUBE TP SCH (08:58)
[2021-09-20] MEDS ORDERED: 0.9 % Sodium Chloride 250 ML IVC PRN (11:11)
[2021-09-20] MEDS: Simethicone 80 MG TAB.CHEW PO PRN (12:58)
[2021-09-20] MEDS ORDERED: Vancomycin 2,000 MG/520 ML IV.SOLN IVPB ONE (18:00)
[2021-09-21] MEDS: *HR* HYDROcodone/Acet 5/325 mg TABLET PO PRN ×2 (02:20→11:29)
[2021-09-21] MEDS: *HR* Heparin 5,000 UNIT/ML VIAL SQ SCH ×3 (05:11→21:31)
[2021-09-21 06:05] LABS: Hematocrit 34.7 % (37.5-50.1); Hemoglobin 11.6 g/dL (12.9-16.9); Mean Corpuscular HGB Conc 33.4 g/dL (31.6-35.5); Mean Corpuscular Hemoglobin 30.9 pg (28.0-33.3); Mean Corpuscular Volume 92.3 fL (83.0-100.0); Mean Platelet Volume 10.4 fL (9.4-12.4); Platelet Count 125 K/mcL (140-400); Red Blood Count 3.76 M/mcL (4.19-5.50); Red Cell Distribution Width 15.4 % (11.5-14.5); White Blood Count 11.8 K/mcL (4.3-11.1)
[2021-09-21 06:26] LABS: Calcium 8.3 mg/dL (8.6-10.3); Magnesium 1.9 mg/dL (1.6-2.6); Phosphorous 5.2 mg/dL (2.7-4.5); Potassium 3.4 mEq/L (3.5-5.1)
[2021-09-21] MEDS: Insulin LISPRO 300 UNITS/3 ML VIAL SUBQ SCH ×4 (08:05→21:10)
[2021-09-21] MEDS ORDERED: 0.9 % Sodium Chloride 250 ML IVC PRN (08:09)
[2021-09-21] MEDS ORDERED: 0.9 % Sodium Chloride 1,000 ML PRIME SCH (08:15)
[2021-09-21] MEDS: Renal Vitamin 1 CAP CAPSULE PO SCH (08:15)
[2021-09-21] MEDS: Spironolactone 25 MG TABLET PO SCH (08:16)
[2021-09-21] MEDS: Cholecalciferol (D-3) 1,000 UNIT (25MCG) TABLET PO SCH (08:16)
[2021-09-21] MEDS: calcitrioL 0.25 MCG CAPSULE PO SCH (08:16)
[2021-09-21] MEDS: Furosemide 40 MG/4 ML VIAL IVP SCH ×2 (08:16→17:06)
[2021-09-21] MEDS: Gentamicin Oint 15 GM TUBE TP SCH (08:20)
[2021-09-21] MEDS: Nystatin POWDER 30 GM BOTTLE TP SCH ×3 (08:21→21:32)
[2021-09-21] MEDS: Acetaminophen 325 MG TABLET PO PRN (21:30)
[2021-09-22 03:45] LABS: Calcium 8.5 mg/dL (8.6-10.3); Magnesium 1.9 mg/dL (1.6-2.6); Phosphorous 3.5 mg/dL (2.7-4.5); Potassium 3.6 mEq/L (3.5-5.1)
[2021-09-22] MEDS: *HR* Heparin 5,000 UNIT/ML VIAL SQ SCH ×2 (05:45→14:51)
[2021-09-22] MEDS ORDERED: 0.9 % Sodium Chloride 250 ML IVC PRN (07:15)
[2021-09-22] MEDS ORDERED: 0.9 % Sodium Chloride 1,000 ML PRIME SCH (07:15)
[2021-09-22] MEDS: Insulin LISPRO 300 UNITS/3 ML VIAL SUBQ SCH ×2 (10:57→12:36)
[2021-09-22 11:52] VITALS: PULSE 85; O2SAT 94
[2021-09-22] MEDS ORDERED: Albumin 25% 25gram/100mL 25 GM/100 ML IV.SOLN IVPB SCH ×2 (13:00→16:00)
[2021-09-22] MEDS: *HR* HYDROcodone/Acet 5/325 mg TABLET PO PRN (13:17)
[2021-09-22] MEDS: calcitrioL 0.25 MCG CAPSULE PO SCH (14:50)
[2021-09-22] MEDS: Cholecalciferol (D-3) 1,000 UNIT (25MCG) TABLET PO SCH (14:51)
[2021-09-22] MEDS: Renal Vitamin 1 CAP CAPSULE PO SCH (14:51)
[2021-09-22] MEDS: Spironolactone 25 MG TABLET PO SCH (14:51)
[2021-09-22] MEDS: Nystatin POWDER 30 GM BOTTLE TP SCH (14:52)
[2021-09-22] MEDS: Gentamicin Oint 15 GM TUBE TP SCH (14:52)
[2021-09-22 15:51] VITALS: TEMP 97.6
[2021-09-22 15:59] VITALS: BP 115/59
== END 2021-09-22 17:36 | disposition home health service (06) | DRG 280 ==
LOC: EMEROOARM 10:13 → 2ANU 10:13 → SUATTDRO 13:17 → 2ANU 14:42
PROVIDERS: ADMIT Internal Medicine; ATTEND Family Medicine

== ENCOUNTER 2021-09-24 23:08 | Inpatient (IN) ==
[2021-09-24] MEDS ORDERED: *HR* HYDROcodone/Acet 5/325 mg TABLET PO ONE (23:27)
[2021-09-24 23:57] LABS: Basophils % 0.2 %; Eosinophils # 0.1 K/mcL (0.0-0.6); Eosinophils % 0.4 %; Hemoglobin 11.8 g/dL (12.9-16.9); Immature Granulocytes % 1.4 % (0-4); Lymphocytes # 0.6 K/mcL (0.6-4.6); Lymphocytes % 3.5 %; Mean Corpuscular HGB Conc 32.8 g/dL (31.6-35.5); Mean Corpuscular Hemoglobin 30.4 pg (28.0-33.3); Mean Corpuscular Volume 92.8 fL (83.0-100.0); Mean Platelet Volume 10.5 fL (9.4-12.4); Monocytes # 1.2 K/mcL (0.0-1.3); Monocytes % 7.7 %; Platelet Count 174 K/mcL (140-400); Red Blood Count 3.88 M/mcL (4.19-5.50); Red Cell Distribution Width 15.1 % (11.5-14.5); Segmented Neutrophils % 86.8 %; White Blood Count 16.1 K/mcL (4.3-11.1)
[2021-09-25 00:16] LABS: Calcium 8.7 mg/dL (8.6-10.3); Potassium 4.7 mEq/L (3.5-5.1)
[2021-09-25] MEDS ORDERED: Melatonin 3 MG TABLET PO PRN (04:50)
[2021-09-25] MEDS ORDERED: Naloxone 0.4 MG/ML INJ IVP PRN (04:50)
[2021-09-25] MEDS ORDERED: D5% in Water 1,000 ML IVC PRN (05:01)
[2021-09-25] MEDS ORDERED: *HR* Dextrose 50 % in Water (Syg) 50 ML SYRINGE IVP PRN (05:01)
[2021-09-25] MEDS ORDERED: Dextrose 4 GM Chewable Tablets PO PRN ×2 (05:01)
[2021-09-25 05:26] LABS: Estimated Average Glucose 143 mg/dl; Hemoglobin A1C 6.6 %
[2021-09-25] MEDS ORDERED: *HR* Heparin 5,000 UNIT/ML VIAL SQ SCH (06:00)
[2021-09-25] MEDS: Insulin LISPRO 300 UNITS/3 ML VIAL SUBQ SCH ×4 (07:43→22:46)
[2021-09-25] MEDS ORDERED: Albumin 25% 25gram/100mL 25 GM/100 ML IV.SOLN IVPB PRN (08:08)
[2021-09-25] MEDS ORDERED: 0.9 % Sodium Chloride 250 ML IVC PRN (08:08)
[2021-09-25] MEDS ORDERED: 0.9 % Sodium Chloride 1,000 ML PRIME SCH (08:15)
[2021-09-25] MEDS: Vitamin B Complex/Vit C/Vit E 1 EACH TABLET PO SCH (09:28)
[2021-09-25] MEDS ORDERED: [UNRECOGNIZED DRUG - OTHER] PERITONEAL ONE (13:19)
[2021-09-25] MEDS ORDERED: Acetaminophen 325 MG TABLET PO ONE (13:48)
[2021-09-25] MEDS: *HR* Heparin 5,000 UNIT/ML VIAL SQ SCH ×2 (14:15→22:00)
[2021-09-25 19:50] LABS: RBC,Peritoneal Fluid 57000 RBC/mcL
[2021-09-25 20:23] LABS: Basophils,Peritoneal Fluid 0 %
[2021-09-25 20:26] LABS: Appearance of Peritoneal Fl BLOODY (Clear)
[2021-09-25] MEDS: *HR* HYDROcodone/Acet 5/325 mg TABLET PO PRN (21:59)
[2021-09-26] MEDS: *HR* Heparin 5,000 UNIT/ML VIAL SQ SCH (04:15)
[2021-09-26] MEDS: *HR* HYDROcodone/Acet 5/325 mg TABLET PO PRN ×2 (04:16→19:33)
[2021-09-26 06:40] LABS: Basophils % 0.2 %; Eosinophils # 0.1 K/mcL (0.0-0.6); Eosinophils % 0.5 %; Hematocrit 31.5 % (37.5-50.1); Hemoglobin 10.3 g/dL (12.9-16.9); Immature Granulocytes % 1.5 % (0-4); Lymphocytes # 0.4 K/mcL (0.6-4.6); Lymphocytes % 3.1 %; Mean Corpuscular HGB Conc 32.7 g/dL (31.6-35.5); Mean Corpuscular Hemoglobin 29.8 pg (28.0-33.3); Mean Platelet Volume 10.7 fL (9.4-12.4); Monocytes # 1.1 K/mcL (0.0-1.3); Monocytes % 8.2 %; Neutrophils # 11.3 K/mcL (1.6-8.9); Platelet Count 167 K/mcL (140-400); Red Blood Count 3.46 M/mcL (4.19-5.50); Red Cell Distribution Width 14.8 % (11.5-14.5); Segmented Neutrophils % 86.5 %; White Blood Count 13.1 K/mcL (4.3-11.1)
[2021-09-26 06:45] LABS: Calcium 8.2 mg/dL (8.6-10.3); Magnesium 1.9 mg/dL (1.6-2.6); Phosphorous 3.4 mg/dL (2.7-4.5); Potassium 3.7 mEq/L (3.5-5.1)
[2021-09-26] MEDS: Insulin LISPRO 300 UNITS/3 ML VIAL SUBQ SCH ×4 (08:32→22:36)
[2021-09-26] MEDS: Vitamin B Complex/Vit C/Vit E 1 EACH TABLET PO SCH (08:33)
[2021-09-26] MEDS: *HR* OxyCODONE/APAP 10/325 TABLET PO PRN (14:43)
[2021-09-26] MEDS ORDERED: Clindamycin 600 MG/50 ML 600 MG/50 ML IV.SOLN IVPB ONE (18:20)
[2021-09-27] MEDS: *HR* HYDROcodone/Acet 5/325 mg TABLET PO PRN (03:24)
[2021-09-27 05:02] LABS: Calcium 8.9 mg/dL (8.6-10.3); Magnesium 1.9 mg/dL (1.6-2.6); Phosphorous 4.7 mg/dL (2.7-4.5); Potassium 4.4 mEq/L (3.5-5.1)
[2021-09-27] MEDS: Insulin LISPRO 300 UNITS/3 ML VIAL SUBQ SCH ×4 (07:16→20:13)
[2021-09-27] MEDS ORDERED: *HR* Propofol 200 MG/20 ML VIAL IVP ONE (07:33)
[2021-09-27] MEDS ORDERED: *HR* Rocuronium Bromide 50 MG/5 ML VIAL ONE (07:33)
[2021-09-27] MEDS ORDERED: Ondansetron 4 MG/2 ML VIAL ONE (07:33)
[2021-09-27] MEDS ORDERED: *HR* Succinylcholine 200 MG/10 ML VIAL IVP ONE (07:33)
[2021-09-27] MEDS ORDERED: Lidocaine -MPF 2% 5 ML VIAL ONE (07:33)
[2021-09-27] MEDS ORDERED: Lidocaine HCL 4 ML Topical Solution (Laryng-O-Jet Kit Sterile Pak) TP ONE (07:33)
[2021-09-27] MEDS: Vitamin B Complex/Vit C/Vit E 1 EACH TABLET PO SCH (07:39)
[2021-09-27] MEDS: *HR* OxyCODONE/APAP 10/325 TABLET PO PRN ×3 (07:39→20:11)
[2021-09-27] MEDS ORDERED: 0.9 % Sodium Chloride 250 ML IVC PRN (08:13)
[2021-09-27] MEDS ORDERED: *HR* FentaNYL (PF) 100 MCG/2 ML VIAL ONE (08:17)
[2021-09-27] MEDS ORDERED: *HR* Midazolam HCl 2 MG/2 ML VIAL ONE ×2 (08:17→10:02)
[2021-09-27] MEDS ORDERED: Clindamycin 600 MG/50 ML 600 MG/50 ML IV.SOLN IVPB ONE (08:52)
[2021-09-27] MEDS ORDERED: EPHEDrine 50 MG/ML VIAL ONE (09:35)
[2021-09-27] MEDS ORDERED: Albumin Human 5% 12.5 GM/250 ML IV.SOLN ONE ×2 (09:36→10:09)
[2021-09-27] MEDS ORDERED: *HR* Vasopressin 20 UNIT/ML VIAL ONE (09:36)
[2021-09-27] MEDS ORDERED: *HR* Norepinephrine 4 MG/4 ML VIAL IVC ONE (09:40)
[2021-09-27] MEDS ORDERED: Heparin 1,000 UNITS/500 mL 500 ML ONE (09:53)
[2021-09-27 10:21] LABS: ABG Base Excess -10 mEq/L (-2 to 3); ABG Chloride 102 mEq/L (98-107); ABG Glucose 126 mg/dL (60-95); ABG HCO3 16 mEq/L (21-27); ABG Ionized Calcium 1.04 mmol/L (1.15-1.35); ABG Oxygen Saturation 100 % (95-98); ABG PCO2 36 mmHg (35-45); ABG PH 7.26 pH Units (7.32-7.45); ABG PO2 331 mmHg (85-104); ABG TCO2 17 mEq/L (20-26)
[2021-09-27] MEDS ORDERED: Clindamycin 600 MG/50 ML 600 MG/50 ML IV.SOLN IVPB STA (10:25)
[2021-09-27] MEDS ORDERED: *HR* Dextrose 50 % in Water (Syg) 50 ML SYRINGE IVP ONE (11:28)
[2021-09-27] MEDS ORDERED: *HR* Dextrose 50 % in Water (Vial) 50 ML VIAL IVP ONE (11:45)
[2021-09-27] MEDS ORDERED: Dextrose 4 GM Chewable Tablets PO PRN ×2 (13:25)
[2021-09-27] MEDS ORDERED: Naloxone 0.4 MG/ML INJ IVP PRN (13:25)
[2021-09-27] MEDS ORDERED: D5% in Water 1,000 ML IVC PRN (13:25)
[2021-09-27] MEDS ORDERED: 0.9 % Sodium Chloride 1,000 ML PRIME SCH (13:25)
[2021-09-27] MEDS: *HR* Heparin 5,000 UNIT/ML VIAL SQ SCH ×2 (13:44→20:11)
[2021-09-28] MEDS: *HR* OxyCODONE/APAP 10/325 TABLET PO PRN ×2 (04:25→16:06)
[2021-09-28] MEDS: *HR* Heparin 5,000 UNIT/ML VIAL SQ SCH ×3 (05:37→20:32)
[2021-09-28 06:33] LABS: Basophils % 0.1 %; Hematocrit 30.1 % (37.5-50.1); Hemoglobin 10.4 g/dL (12.9-16.9); Immature Granulocytes % 1.6 % (0-4); Lymphocytes # 0.6 K/mcL (0.6-4.6); Lymphocytes % 3.7 %; Mean Corpuscular HGB Conc 34.6 g/dL (31.6-35.5); Mean Corpuscular Hemoglobin 31.1 pg (28.0-33.3); Mean Corpuscular Volume 90.1 fL (83.0-100.0); Mean Platelet Volume 10.6 fL (9.4-12.4); Monocytes # 0.9 K/mcL (0.0-1.3); Neutrophils # 13.7 K/mcL (1.6-8.9); Platelet Count 197 K/mcL (140-400); Red Blood Count 3.34 M/mcL (4.19-5.50); Red Cell Distribution Width 14.9 % (11.5-14.5); Segmented Neutrophils % 88.6 %; White Blood Count 15.4 K/mcL (4.3-11.1)
[2021-09-28 06:50] LABS: Calcium 8.9 mg/dL (8.6-10.3); Phosphorous 5.9 mg/dL (2.7-4.5); Potassium 4.5 mEq/L (3.5-5.1)
[2021-09-28] MEDS: Insulin LISPRO 300 UNITS/3 ML VIAL SUBQ SCH ×4 (07:55→20:32)
[2021-09-28] MEDS: *HR* HYDROcodone/Acet 5/325 mg TABLET PO PRN ×2 (09:43→20:35)
[2021-09-28] MEDS: Vitamin B Complex/Vit C/Vit E 1 EACH TABLET PO SCH (09:43)
[2021-09-29] MEDS: *HR* Heparin 5,000 UNIT/ML VIAL SQ SCH ×3 (04:49→20:19)
[2021-09-29 08:15] LABS: Basophils % 0.2 %; Eosinophils % 0.1 %; Hemoglobin 10.8 g/dL (12.9-16.9); Immature Granulocytes % 1.3 % (0-4); Lymphocytes # 0.6 K/mcL (0.6-4.6); Lymphocytes % 3.2 %; Mean Corpuscular HGB Conc 33.8 g/dL (31.6-35.5); Mean Platelet Volume 10.4 fL (9.4-12.4); Monocytes # 0.9 K/mcL (0.0-1.3); Neutrophils # 16.3 K/mcL (1.6-8.9); Nucleated Red Blood Cells 0.2 /100 WBC (0); Platelet Count 242 K/mcL (140-400); Red Blood Count 3.48 M/mcL (4.19-5.50); Segmented Neutrophils % 90.2 %
[2021-09-29] MEDS: Insulin LISPRO 300 UNITS/3 ML VIAL SUBQ SCH ×4 (08:31→20:18)
[2021-09-29 08:34] LABS: Magnesium 2.1 mg/dL (1.6-2.6); Phosphorous 5.6 mg/dL (2.7-4.5); Potassium 4.4 mEq/L (3.5-5.1)
[2021-09-29] MEDS: *HR* HYDROcodone/Acet 5/325 mg TABLET PO PRN (08:36)
[2021-09-29] MEDS: Vitamin B Complex/Vit C/Vit E 1 EACH TABLET PO SCH (08:36)
[2021-09-29] MEDS ORDERED: 0.9 % Sodium Chloride 250 ML IVC PRN (10:23)
[2021-09-29] MEDS: *HR* OxyCODONE/APAP 10/325 TABLET PO PRN (14:26)
[2021-09-30] MEDS: *HR* HYDROcodone/Acet 5/325 mg TABLET PO PRN ×3 (03:25→19:21)
[2021-09-30] MEDS: *HR* Heparin 5,000 UNIT/ML VIAL SQ SCH ×3 (05:07→20:45)
[2021-09-30 05:14] LABS: Basophils % 0.2 %; Eosinophils % 0.2 %; Hematocrit 33.2 % (37.5-50.1); Hemoglobin 11.1 g/dL (12.9-16.9); Immature Granulocytes % 1.3 % (0-4); Lymphocytes # 0.6 K/mcL (0.6-4.6); Lymphocytes % 3.3 %; Mean Corpuscular HGB Conc 33.4 g/dL (31.6-35.5); Mean Corpuscular Hemoglobin 30.3 pg (28.0-33.3); Mean Corpuscular Volume 90.7 fL (83.0-100.0); Mean Platelet Volume 10.4 fL (9.4-12.4); Monocytes % 5.4 %; Neutrophils # 16.3 K/mcL (1.6-8.9); Nucleated Red Blood Cells 0.4 /100 WBC (0); Platelet Count 234 K/mcL (140-400); Red Blood Count 3.66 M/mcL (4.19-5.50); Red Cell Distribution Width 14.9 % (11.5-14.5); Segmented Neutrophils % 89.6 %; White Blood Count 18.2 K/mcL (4.3-11.1)
[2021-09-30 05:26] LABS: Phosphorous 4.2 mg/dL (2.7-4.5)
[2021-09-30] MEDS: Insulin LISPRO 300 UNITS/3 ML VIAL SUBQ SCH ×4 (08:53→19:51)
[2021-09-30] MEDS: Vitamin B Complex/Vit C/Vit E 1 EACH TABLET PO SCH (09:01)
[2021-09-30] MEDS ORDERED: Isovue-370 500 ML BOTTLE IVP ONE (11:29)
[2021-09-30] MEDS: *HR* OxyCODONE/APAP 10/325 TABLET PO PRN (16:19)
[2021-10-01 03:23] LABS: Basophils % 0.2 %; Eosinophils # 0.1 K/mcL (0.0-0.6); Eosinophils % 0.4 %; Hematocrit 30.8 % (37.5-50.1); Hemoglobin 10.5 g/dL (12.9-16.9); Immature Granulocytes % 1.1 % (0-4); Lymphocytes # 0.6 K/mcL (0.6-4.6); Lymphocytes % 3.2 %; Mean Corpuscular HGB Conc 34.1 g/dL (31.6-35.5); Mean Corpuscular Volume 90.9 fL (83.0-100.0); Mean Platelet Volume 10.6 fL (9.4-12.4); Monocytes # 0.8 K/mcL (0.0-1.3); Monocytes % 4.8 %; Neutrophils # 15.7 K/mcL (1.6-8.9); Nucleated Red Blood Cells 0.3 /100 WBC (0); Platelet Count 220 K/mcL (140-400); Red Blood Count 3.39 M/mcL (4.19-5.50); Segmented Neutrophils % 90.3 %; White Blood Count 17.4 K/mcL (4.3-11.1)
[2021-10-01 03:41] LABS: Calcium 8.7 mg/dL (8.6-10.3); Magnesium 1.9 mg/dL (1.6-2.6); Phosphorous 4.3 mg/dL (2.7-4.5); Potassium 3.8 mEq/L (3.5-5.1)
[2021-10-01] MEDS: *HR* OxyCODONE/APAP 10/325 TABLET PO PRN (04:38)
[2021-10-01] MEDS: *HR* Heparin 5,000 UNIT/ML VIAL SQ SCH ×3 (04:42→21:37)
[2021-10-01] MEDS: Insulin LISPRO 300 UNITS/3 ML VIAL SUBQ SCH ×4 (08:03→20:45)
[2021-10-01] MEDS: Vitamin B Complex/Vit C/Vit E 1 EACH TABLET PO SCH (08:03)
[2021-10-01 11:07] LABS: Bilirubin,Urine Negative (Negative); Blood,Urine Negative (Negative); Clarity,Urine Clear (Clear); Color,Urine Yellow (Yellow); Glucose,Urine (UA) Normal (Normal); Hyaline Casts,Urine Few per lpf (None Seen); Ketones,Urine Negative (Negative); Leukocyte Esterase,Urine Small (Negative); Mucus,Urine Few per lpf (None-Few); Nitrite,Urine Negative (Negative); PH,Urine 5.5 pH Units (5.0-8.0); Protein,Urine 30 mg/dL (Neg-Trace); RBC,Urine 0-3 per hpf (0-3); Specific Gravity,Urine 1.015 (1.010-1.025); Urobilinogen,Urine Normal (Normal)
[2021-10-01] MEDS: *HR* HYDROcodone/Acet 5/325 mg TABLET PO PRN ×2 (13:10→21:37)
[2021-10-02 03:07] LABS: Calcium 8.4 mg/dL (8.6-10.3); Potassium 3.9 mEq/L (3.5-5.1)
[2021-10-02] MEDS: *HR* HYDROcodone/Acet 5/325 mg TABLET PO PRN ×3 (06:19→20:50)
[2021-10-02] MEDS: *HR* Heparin 5,000 UNIT/ML VIAL SQ SCH ×3 (06:19→20:51)
[2021-10-02] MEDS ORDERED: 0.9 % Sodium Chloride 250 ML IVC PRN (07:40)
[2021-10-02] MEDS ORDERED: 0.9 % Sodium Chloride 1,000 ML PRIME SCH (07:45)
[2021-10-02] MEDS ORDERED: Vancomycin 1 EACH in 0.9 % Sodium Chloride 250 ML IVPB PRN (08:00)
[2021-10-02] MEDS ORDERED: Vancomycin 1,750 MG/517.5 ML IV.SOLN IVPB ONE (08:00)
[2021-10-02] MEDS: Insulin LISPRO 300 UNITS/3 ML VIAL SUBQ SCH ×4 (09:14→20:24)
[2021-10-02] MEDS: Doxycycline 100 MG CAPSULE PO SCH ×2 (11:25→20:50)
[2021-10-02] MEDS: Vitamin B Complex/Vit C/Vit E 1 EACH TABLET PO SCH (11:25)
[2021-10-02] MEDS: Amoxicillin/Clavulanate 500 MG TABLET PO SCH ×2 (11:25→16:49)
[2021-10-02 11:35] LABS: Basophils % 0.2 %; Eosinophils # 0.1 K/mcL (0.0-0.6); Eosinophils % 0.4 %; Hematocrit 32.2 % (37.5-50.1); Hemoglobin 10.9 g/dL (12.9-16.9); Immature Granulocytes % 3.4 % (0-4); Lymphocytes # 0.5 K/mcL (0.6-4.6); Lymphocytes % 2.4 %; Mean Corpuscular HGB Conc 33.9 g/dL (31.6-35.5); Mean Corpuscular Hemoglobin 30.3 pg (28.0-33.3); Mean Corpuscular Volume 89.4 fL (83.0-100.0); Mean Platelet Volume 10.5 fL (9.4-12.4); Monocytes # 1.1 K/mcL (0.0-1.3); Neutrophils # 20.1 K/mcL (1.6-8.9); Nucleated Red Blood Cells 0.1 /100 WBC (0); Platelet Count 204 K/mcL (140-400); Red Cell Distribution Width 15.5 % (11.5-14.5); Segmented Neutrophils % 88.6 %; White Blood Count 22.7 K/mcL (4.3-11.1)
[2021-10-02] MEDS: *HR* OxyCODONE/APAP 10/325 TABLET PO PRN (12:49)
[2021-10-02] MEDS ORDERED: Cefepime HCl 1,000 MG in 0.9 % Sodium Chloride 10 ML IVP SCH (16:00)
[2021-10-03 01:19] LABS: Basophils % 0.2 %; Eosinophils # 0.1 K/mcL (0.0-0.6); Eosinophils % 0.3 %; Hematocrit 30.4 % (37.5-50.1); Hemoglobin 10.3 g/dL (12.9-16.9); Immature Granulocytes % 3.3 % (0-4); Lymphocytes # 0.6 K/mcL (0.6-4.6); Lymphocytes % 3.2 %; Mean Corpuscular HGB Conc 33.9 g/dL (31.6-35.5); Mean Corpuscular Hemoglobin 30.9 pg (28.0-33.3); Mean Corpuscular Volume 91.3 fL (83.0-100.0); Mean Platelet Volume 10.6 fL (9.4-12.4); Monocytes # 1.2 K/mcL (0.0-1.3); Monocytes % 5.9 %; Nucleated Red Blood Cells 0.1 /100 WBC (0); Platelet Count 167 K/mcL (140-400); Red Blood Count 3.33 M/mcL (4.19-5.50); Red Cell Distribution Width 15.5 % (11.5-14.5); Segmented Neutrophils % 87.1 %; White Blood Count 19.5 K/mcL (4.3-11.1)
[2021-10-03 01:39] LABS: Calcium 8.5 mg/dL (8.6-10.3); Magnesium 1.9 mg/dL (1.6-2.6); Potassium 3.8 mEq/L (3.5-5.1)
[2021-10-03] MEDS: *HR* Heparin 5,000 UNIT/ML VIAL SQ SCH ×3 (06:50→20:56)
[2021-10-03] MEDS: *HR* HYDROcodone/Acet 5/325 mg TABLET PO PRN (06:50)
[2021-10-03] MEDS: Insulin LISPRO 300 UNITS/3 ML VIAL SUBQ SCH ×4 (07:58→20:49)
[2021-10-03] MEDS ORDERED: 0.9 % Sodium Chloride 250 ML IVC PRN (08:41)
[2021-10-03] MEDS: Doxycycline 100 MG CAPSULE PO SCH ×2 (09:46→20:05)
[2021-10-03] MEDS: Vitamin B Complex/Vit C/Vit E 1 EACH TABLET PO SCH (09:46)
[2021-10-03] MEDS: Amoxicillin/Clavulanate 500 MG TABLET PO SCH ×2 (09:46→20:05)
[2021-10-03] MEDS: *HR* OxyCODONE/APAP 10/325 TABLET PO PRN (15:33)
[2021-10-03] MEDS ORDERED: Albumin 25% 25gram/100mL 25 GM/100 ML IV.SOLN IVPB ONE (16:55)
[2021-10-04 02:40] LABS: Basophils # 0.1 K/mcL (0.0-0.2); Basophils % 0.2 %; Eosinophils % 0.1 %; Hematocrit 31.2 % (37.5-50.1); Hemoglobin 10.6 g/dL (12.9-16.9); Immature Granulocytes % 3.2 % (0-4); Lymphocytes # 0.5 K/mcL (0.6-4.6); Lymphocytes % 2.2 %; Mean Corpuscular Hemoglobin 30.5 pg (28.0-33.3); Mean Corpuscular Volume 89.7 fL (83.0-100.0); Mean Platelet Volume 10.1 fL (9.4-12.4); Monocytes # 1.2 K/mcL (0.0-1.3); Monocytes % 5.6 %; Neutrophils # 18.9 K/mcL (1.6-8.9); Nucleated Red Blood Cells 0.1 /100 WBC (0); Platelet Count 167 K/mcL (140-400); Red Blood Count 3.48 M/mcL (4.19-5.50); Red Cell Distribution Width 15.8 % (11.5-14.5); Segmented Neutrophils % 88.7 %; White Blood Count 21.3 K/mcL (4.3-11.1)
[2021-10-04 02:52] LABS: Calcium 8.5 mg/dL (8.6-10.3); Magnesium 1.8 mg/dL (1.6-2.6); Phosphorous 3.7 mg/dL (2.7-4.5); Potassium 3.8 mEq/L (3.5-5.1)
[2021-10-04] MEDS: *HR* OxyCODONE/APAP 10/325 TABLET PO PRN ×2 (06:18→12:58)
[2021-10-04] MEDS: *HR* Heparin 5,000 UNIT/ML VIAL SQ SCH ×3 (06:18→19:54)
[2021-10-04] MEDS: Insulin LISPRO 300 UNITS/3 ML VIAL SUBQ SCH ×4 (07:57→19:44)
[2021-10-04] MEDS: Doxycycline 100 MG CAPSULE PO SCH (09:38)
[2021-10-04] MEDS: Vitamin B Complex/Vit C/Vit E 1 EACH TABLET PO SCH (09:39)
[2021-10-04] MEDS: Leptospermum Honey Paste 44 ML TUBE TP SCH (09:39)
[2021-10-04] MEDS: Amoxicillin/Clavulanate 500 MG TABLET PO SCH (09:39)
[2021-10-04] MEDS: *HR* HYDROcodone/Acet 5/325 mg TABLET PO PRN (09:42)
[2021-10-04] MEDS: Cefepime HCl 1,000 MG in 0.9 % Sodium Chloride 10 ML IVP SCH (12:59)
[2021-10-04] MEDS ORDERED: Vancomycin 1,750 MG/517.5 ML IV.SOLN IVPB ONE (13:00)
[2021-10-04] MEDS: *HR* OxyCODONE ER (12 HR) 10 MG TABLET PO SCH (16:53)
[2021-10-04] MEDS: Lactobacillus 1 EACH CAP.SPRINK PO SCH (19:55)
[2021-10-05 02:14] LABS: Basophils # 0.1 K/mcL (0.0-0.2); Basophils % 0.2 %; Eosinophils # 0.1 K/mcL (0.0-0.6); Eosinophils % 0.3 %; Hematocrit 31.9 % (37.5-50.1); Hemoglobin 10.9 g/dL (12.9-16.9); Immature Granulocytes % 2.9 % (0-4); Lymphocytes # 0.8 K/mcL (0.6-4.6); Lymphocytes % 3.7 %; Mean Corpuscular HGB Conc 34.2 g/dL (31.6-35.5); Mean Corpuscular Hemoglobin 30.7 pg (28.0-33.3); Mean Corpuscular Volume 89.9 fL (83.0-100.0); Mean Platelet Volume 10.6 fL (9.4-12.4); Monocytes # 1.2 K/mcL (0.0-1.3); Monocytes % 6.1 %; Neutrophils # 17.6 K/mcL (1.6-8.9); Nucleated Red Blood Cells 0.1 /100 WBC (0); Platelet Count 165 K/mcL (140-400); Red Blood Count 3.55 M/mcL (4.19-5.50); Segmented Neutrophils % 86.8 %; White Blood Count 20.2 K/mcL (4.3-11.1)
[2021-10-05 02:24] LABS: Chol/HDL Ratio 10.5 (0-4.9)
[2021-10-05 02:44] LABS: Folate 6.7 ng/mL (3.0-16.0)
[2021-10-05 02:46] LABS: Vitamin B12 > 1500 pg/mL (250-1100)
[2021-10-05] MEDS: *HR* OxyCODONE ER (12 HR) 10 MG TABLET PO SCH ×2 (05:36→16:56)
[2021-10-05] MEDS: *HR* Heparin 5,000 UNIT/ML VIAL SQ SCH ×3 (05:37→21:49)
[2021-10-05] MEDS ORDERED: Albumin 25% 25gram/100mL 25 GM/100 ML IV.SOLN IVPB PRN (08:08)
[2021-10-05] MEDS ORDERED: 0.9 % Sodium Chloride 250 ML IVC PRN (08:08)
[2021-10-05 08:09] LABS: Calcium 8.8 mg/dL (8.6-10.3); Magnesium 1.9 mg/dL (1.6-2.6); Phosphorous 4.6 mg/dL (2.7-4.5)
[2021-10-05] MEDS: Insulin LISPRO 300 UNITS/3 ML VIAL SUBQ SCH ×4 (08:49→21:51)
[2021-10-05] MEDS: Lactobacillus 1 EACH CAP.SPRINK PO SCH ×2 (08:56→21:49)
[2021-10-05] MEDS: Renal Vitamin 1 CAP CAPSULE PO SCH (08:56)
[2021-10-05] MEDS ORDERED: Acetaminophen IV 1,000 MG/100 ML BAG IVPB PRN (10:00)
[2021-10-05] MEDS: Ethyl Chloride Spray Bottle (104 SPRAY/BOTTLE) TP SCH (10:11)
[2021-10-05] MEDS: *HR* OxyCODONE/APAP 10/325 TABLET PO PRN ×2 (10:29→19:25)
[2021-10-05] MEDS: Leptospermum Honey Paste 44 ML TUBE TP SCH (11:55)
[2021-10-05] MEDS: Cefepime HCl 1,000 MG in 0.9 % Sodium Chloride 10 ML IVP SCH (11:55)
[2021-10-05] MEDS ORDERED: Vancomycin 1,250 MG/262.5 ML IV.SOLN IVPB ONE (16:00)
[2021-10-05] MEDS: Melatonin 3 MG TABLET PO PRN (21:49)
[2021-10-06 01:51] LABS: Eosinophils % 0.2 %; Nucleated Red Blood Cells 0.1 /100 WBC (0)
[2021-10-06 01:53] LABS: Basophils # 0.1 K/mcL (0.0-0.2); Basophils % 0.3 %; Eosinophils # 0.1 K/mcL (0.0-0.6); Hematocrit 31.7 % (37.5-50.1); Immature Granulocytes % 3.1 % (0-4); Lymphocytes # 0.9 K/mcL (0.6-4.6); Lymphocytes % 3.5 %; Mean Corpuscular HGB Conc 34.7 g/dL (31.6-35.5); Mean Corpuscular Volume 89.3 fL (83.0-100.0); Mean Platelet Volume 10.5 fL (9.4-12.4); Monocytes # 1.6 K/mcL (0.0-1.3); Monocytes % 6.4 %; Neutrophils # 22.1 K/mcL (1.6-8.9); Platelet Count 161 K/mcL (140-400); Red Blood Count 3.55 M/mcL (4.19-5.50); Segmented Neutrophils % 86.5 %; White Blood Count 25.5 K/mcL (4.3-11.1)
[2021-10-06 02:14] LABS: Albumin 2.4 g/dL (3.5-5.7); Calcium 8.9 mg/dL (8.6-10.3); Magnesium 1.9 mg/dL (1.6-2.6); Phosphorous 4.5 mg/dL (2.7-4.5)
[2021-10-06 02:24] LABS: Platelet Estimate Normal (Normal); Polychromasia 1+ (Not Present)
[2021-10-06] MEDS: *HR* Heparin 5,000 UNIT/ML VIAL SQ SCH ×3 (05:58→22:54)
[2021-10-06] MEDS: *HR* OxyCODONE ER (12 HR) 10 MG TABLET PO SCH ×2 (05:59→19:10)
[2021-10-06] MEDS ORDERED: 0.9 % Sodium Chloride 250 ML IVC PRN (07:38)
[2021-10-06] MEDS: Insulin LISPRO 300 UNITS/3 ML VIAL SUBQ SCH ×4 (07:49→20:43)
[2021-10-06] MEDS: Renal Vitamin 1 CAP CAPSULE PO SCH (07:50)
[2021-10-06] MEDS: Lactobacillus 1 EACH CAP.SPRINK PO SCH ×2 (07:50→20:42)
[2021-10-06] MEDS: *HR* OxyCODONE/APAP 10/325 TABLET PO PRN ×2 (10:00→20:41)
[2021-10-06] MEDS ORDERED: Albumin 25% 25gram/100mL 25 GM/100 ML IV.SOLN ONE (11:10)
[2021-10-06] MEDS: Leptospermum Honey Paste 44 ML TUBE TP SCH ×2 (11:42→20:44)
[2021-10-06] MEDS: Cefepime HCl 1,000 MG in 0.9 % Sodium Chloride 10 ML IVP SCH (14:59)
[2021-10-06] MEDS ORDERED: Vancomycin 1,250 MG/262.5 ML IV.SOLN IVPB ONE (16:00)
[2021-10-07 05:55] LABS: Eosinophils % 0.2 %
[2021-10-07 05:57] LABS: Basophils # 0.1 K/mcL (0.0-0.2); Basophils % 0.3 %; Eosinophils # 0.1 K/mcL (0.0-0.6); Hematocrit 29.7 % (37.5-50.1); Immature Granulocytes % 3.6 % (0-4); Lymphocytes # 0.8 K/mcL (0.6-4.6); Lymphocytes % 2.9 %; Mean Corpuscular HGB Conc 33.7 g/dL (31.6-35.5); Mean Corpuscular Hemoglobin 30.2 pg (28.0-33.3); Mean Corpuscular Volume 89.7 fL (83.0-100.0); Mean Platelet Volume 10.8 fL (9.4-12.4); Monocytes # 1.5 K/mcL (0.0-1.3); Monocytes % 5.8 %; Nucleated Red Blood Cells 0.1 /100 WBC (0); Platelet Count 133 K/mcL (140-400); Red Blood Count 3.31 M/mcL (4.19-5.50); Red Cell Distribution Width 16.6 % (11.5-14.5); Segmented Neutrophils % 87.2 %; White Blood Count 26.4 K/mcL (4.3-11.1)
[2021-10-07 05:58] LABS: Platelet Estimate Slight Decrease (Normal)
[2021-10-07 06:05] LABS: Calcium 8.6 mg/dL (8.6-10.3); Magnesium 1.9 mg/dL (1.6-2.6); Phosphorous 3.8 mg/dL (2.7-4.5); Potassium 4.1 mEq/L (3.5-5.1)
[2021-10-07] MEDS: *HR* Heparin 5,000 UNIT/ML VIAL SQ SCH ×3 (06:23→23:11)
[2021-10-07] MEDS: *HR* OxyCODONE ER (12 HR) 10 MG TABLET PO SCH ×2 (06:24→17:38)
[2021-10-07] MEDS: Insulin LISPRO 300 UNITS/3 ML VIAL SUBQ SCH ×4 (08:50→23:11)
[2021-10-07] MEDS: Renal Vitamin 1 CAP CAPSULE PO SCH (08:50)
[2021-10-07] MEDS: Lactobacillus 1 EACH CAP.SPRINK PO SCH ×2 (08:50→23:17)
[2021-10-07] MEDS: Cefepime HCl 1,000 MG in 0.9 % Sodium Chloride 10 ML IVP SCH (14:16)
[2021-10-07] MEDS: Leptospermum Honey Paste 44 ML TUBE TP SCH (23:11)
[2021-10-08] MEDS: *HR* OxyCODONE/APAP 10/325 TABLET PO PRN (03:12)
[2021-10-08] MEDS: *HR* Heparin 5,000 UNIT/ML VIAL SQ SCH ×3 (05:24→21:38)
[2021-10-08] MEDS: *HR* OxyCODONE ER (12 HR) 10 MG TABLET PO SCH ×2 (05:24→16:46)
[2021-10-08 06:41] LABS: Eosinophils % 0.1 %; Nucleated Red Blood Cells 0.1 /100 WBC (0)
[2021-10-08 06:42] LABS: Basophils # 0.1 K/mcL (0.0-0.2); Basophils % 0.3 %; Hematocrit 30.3 % (37.5-50.1); Hemoglobin 10.4 g/dL (12.9-16.9); Immature Granulocytes % 4.5 % (0-4); Lymphocytes # 0.8 K/mcL (0.6-4.6); Lymphocytes % 2.9 %; Mean Corpuscular HGB Conc 34.3 g/dL (31.6-35.5); Mean Corpuscular Hemoglobin 30.9 pg (28.0-33.3); Mean Corpuscular Volume 89.9 fL (83.0-100.0); Mean Platelet Volume 10.7 fL (9.4-12.4); Monocytes # 1.5 K/mcL (0.0-1.3); Monocytes % 5.3 %; Neutrophils # 24.3 K/mcL (1.6-8.9); Platelet Count 166 K/mcL (140-400); Red Blood Count 3.37 M/mcL (4.19-5.50); Red Cell Distribution Width 16.5 % (11.5-14.5); Segmented Neutrophils % 86.9 %; White Blood Count 27.9 K/mcL (4.3-11.1)
[2021-10-08 06:54] LABS: Calcium 8.9 mg/dL (8.6-10.3); Potassium 3.6 mEq/L (3.5-5.1)
[2021-10-08] MEDS: Renal Vitamin 1 CAP CAPSULE PO SCH (07:45)
[2021-10-08] MEDS: Lactobacillus 1 EACH CAP.SPRINK PO SCH ×2 (07:45→21:37)
[2021-10-08] MEDS: Insulin LISPRO 300 UNITS/3 ML VIAL SUBQ SCH ×4 (07:45→21:37)
[2021-10-08] MEDS ORDERED: Isovue-370 500 ML BOTTLE IVP ONE (10:48)
[2021-10-08] MEDS: Ethyl Chloride Spray Bottle (104 SPRAY/BOTTLE) TP SCH (11:28)
[2021-10-08] MEDS: Cefepime HCl 1,000 MG in 0.9 % Sodium Chloride 10 ML IVP SCH (13:42)
[2021-10-08] MEDS: Leptospermum Honey Paste 44 ML TUBE TP SCH (21:37)
[2021-10-09 05:32] LABS: Basophils % 0.4 %; Immature Granulocytes % 4.2 % (0-4); Monocytes % 4.5 %
[2021-10-09 05:34] LABS: Basophils # 0.1 K/mcL (0.0-0.2); Eosinophils % 0.1 %; Hematocrit 32.4 % (37.5-50.1); Hemoglobin 11.1 g/dL (12.9-16.9); Mean Corpuscular HGB Conc 34.3 g/dL (31.6-35.5); Mean Corpuscular Hemoglobin 30.5 pg (28.0-33.3); Mean Platelet Volume 10.6 fL (9.4-12.4); Monocytes # 1.5 K/mcL (0.0-1.3); Neutrophils # 29.4 K/mcL (1.6-8.9); Platelet Count 184 K/mcL (140-400); Red Blood Count 3.64 M/mcL (4.19-5.50); Red Cell Distribution Width 16.5 % (11.5-14.5); Segmented Neutrophils % 87.8 %
[2021-10-09 05:41] LABS: White Blood Count 33.5 K/mcL (4.3-11.1)
[2021-10-09 05:54] LABS: Calcium 8.9 mg/dL (8.6-10.3); Potassium 3.8 mEq/L (3.5-5.1)
[2021-10-09 06:06] LABS: Toxic Granulation Present (Not Present)
[2021-10-09] MEDS: *HR* Heparin 5,000 UNIT/ML VIAL SQ SCH ×3 (06:27→21:41)
[2021-10-09] MEDS: *HR* OxyCODONE ER (12 HR) 10 MG TABLET PO SCH ×2 (06:28→21:12)
[2021-10-09] MEDS ORDERED: 0.9 % Sodium Chloride 250 ML IVC PRN (07:31)
[2021-10-09] MEDS: Insulin LISPRO 300 UNITS/3 ML VIAL SUBQ SCH ×4 (08:25→21:12)
[2021-10-09] MEDS: *HR* OxyCODONE/APAP 10/325 TABLET PO PRN (10:09)
[2021-10-09] MEDS: Lactobacillus 1 EACH CAP.SPRINK PO SCH ×2 (10:17→21:11)
[2021-10-09] MEDS: metroNIDAZOLE 500 MG TABLET PO SCH ×2 (15:25→21:10)
[2021-10-09] MEDS: Renal Vitamin 1 CAP CAPSULE PO SCH (15:26)
[2021-10-09] MEDS: Cefepime HCl 1,000 MG in 0.9 % Sodium Chloride 10 ML IVP SCH (15:28)
[2021-10-09] MEDS: *HR* Dextrose 50 % in Water (Syg) 50 ML SYRINGE IVP PRN (18:20)
[2021-10-09] MEDS: Famotidine 20 MG TABLET PO SCH (21:11)
[2021-10-09] MEDS: Leptospermum Honey Paste 44 ML TUBE TP SCH (22:40)
[2021-10-10 03:03] LABS: Basophils # 0.1 K/mcL (0.0-0.2); Basophils % 0.3 %; Eosinophils % 0.1 %; Hemoglobin 9.8 g/dL (12.9-16.9); Immature Granulocytes % 3.7 % (0-4); Lymphocytes # 0.9 K/mcL (0.6-4.6); Lymphocytes % 3.2 %; Mean Corpuscular Hemoglobin 30.8 pg (28.0-33.3); Mean Corpuscular Volume 88.1 fL (83.0-100.0); Mean Platelet Volume 10.3 fL (9.4-12.4); Monocytes # 1.1 K/mcL (0.0-1.3); Neutrophils # 24.9 K/mcL (1.6-8.9); Platelet Count 167 K/mcL (140-400); Red Blood Count 3.18 M/mcL (4.19-5.50); Red Cell Distribution Width 16.2 % (11.5-14.5); Segmented Neutrophils % 88.7 %; White Blood Count 28.1 K/mcL (4.3-11.1)
[2021-10-10 03:21] LABS: Calcium 8.3 mg/dL (8.6-10.3); Potassium 3.4 mEq/L (3.5-5.1)
[2021-10-10] MEDS: *HR* Heparin 5,000 UNIT/ML VIAL SQ SCH ×3 (05:32→20:36)
[2021-10-10] MEDS: *HR* OxyCODONE ER (12 HR) 10 MG TABLET PO SCH ×2 (05:32→20:20)
[2021-10-10] MEDS: Insulin LISPRO 300 UNITS/3 ML VIAL SUBQ SCH ×4 (08:05→20:45)
[2021-10-10] MEDS: metroNIDAZOLE 500 MG TABLET PO SCH ×3 (09:38→21:39)
[2021-10-10] MEDS: Lactobacillus 1 EACH CAP.SPRINK PO SCH ×2 (09:38→20:37)
[2021-10-10] MEDS: Ethyl Chloride Spray Bottle (104 SPRAY/BOTTLE) TP SCH (09:40)
[2021-10-10] MEDS: Renal Vitamin 1 CAP CAPSULE PO SCH (10:49)
[2021-10-10] MEDS: Cefepime HCl 1,000 MG in 0.9 % Sodium Chloride 10 ML IVP SCH (12:28)
[2021-10-10] MEDS ORDERED: 0.9 % Sodium Chloride 1,000 ML IVC ONE (20:14)
[2021-10-10] MEDS: Famotidine 20 MG TABLET PO SCH (20:37)
[2021-10-10] MEDS: Leptospermum Honey Paste 44 ML TUBE TP SCH (20:45)
[2021-10-11 04:53] LABS: Eosinophils % 0.1 %; Lymphocytes % 3.1 %; Mean Platelet Volume 10.2 fL (9.4-12.4)
[2021-10-11 04:55] LABS: Basophils # 0.1 K/mcL (0.0-0.2); Basophils % 0.3 %; Hematocrit 30.5 % (37.5-50.1); Hemoglobin 10.1 g/dL (12.9-16.9); Immature Granulocytes % 3.8 % (0-4); Lymphocytes # 0.9 K/mcL (0.6-4.6); Mean Corpuscular HGB Conc 33.1 g/dL (31.6-35.5); Mean Corpuscular Hemoglobin 29.7 pg (28.0-33.3); Mean Corpuscular Volume 89.7 fL (83.0-100.0); Monocytes # 1.2 K/mcL (0.0-1.3); Monocytes % 4.4 %; Neutrophils # 24.6 K/mcL (1.6-8.9); Platelet Count 191 K/mcL (140-400); Red Cell Distribution Width 16.6 % (11.5-14.5); Segmented Neutrophils % 88.3 %; White Blood Count 27.9 K/mcL (4.3-11.1)
[2021-10-11] MEDS: *HR* Heparin 5,000 UNIT/ML VIAL SQ SCH ×3 (05:11→21:39)
[2021-10-11 05:21] LABS: Platelet Estimate Normal (Normal)
[2021-10-11 05:29] LABS: Calcium 8.4 mg/dL (8.6-10.3); Potassium 3.4 mEq/L (3.5-5.1)
[2021-10-11] MEDS ORDERED: 0.9 % Sodium Chloride 250 ML IVC PRN (07:33)
[2021-10-11] MEDS: Renal Vitamin 1 CAP CAPSULE PO SCH (08:51)
[2021-10-11] MEDS: Lactobacillus 1 EACH CAP.SPRINK PO SCH ×2 (08:51→21:37)
[2021-10-11] MEDS: *HR* OxyCODONE ER (12 HR) 10 MG TABLET PO SCH ×2 (08:51→17:34)
[2021-10-11] MEDS: Insulin LISPRO 300 UNITS/3 ML VIAL SUBQ SCH ×4 (08:52→21:30)
[2021-10-11] MEDS: metroNIDAZOLE 500 MG TABLET PO SCH ×3 (08:52→21:37)
[2021-10-11] MEDS: *HR* OxyCODONE/APAP 10/325 TABLET PO PRN (15:10)
[2021-10-11] MEDS: Cefepime HCl 1,000 MG in 0.9 % Sodium Chloride 10 ML IVP SCH (16:08)
[2021-10-11] MEDS: Famotidine 20 MG TABLET PO SCH (21:37)
[2021-10-11] MEDS: Leptospermum Honey Paste 44 ML TUBE TP SCH (21:38)
[2021-10-12] MEDS: *HR* Heparin 5,000 UNIT/ML VIAL SQ SCH ×3 (05:02→23:02)
[2021-10-12] MEDS: *HR* OxyCODONE ER (12 HR) 10 MG TABLET PO SCH ×2 (05:02→17:06)
[2021-10-12 06:32] LABS: Eosinophils % 0.1 %; Hemoglobin 10.3 g/dL (12.9-16.9); Immature Granulocytes % 3.5 % (0-4)
[2021-10-12 06:33] LABS: Basophils # 0.1 K/mcL (0.0-0.2); Basophils % 0.3 %; Hematocrit 30.8 % (37.5-50.1); Lymphocytes # 0.9 K/mcL (0.6-4.6); Lymphocytes % 3.3 %; Mean Corpuscular HGB Conc 33.4 g/dL (31.6-35.5); Mean Corpuscular Hemoglobin 30.6 pg (28.0-33.3); Mean Corpuscular Volume 91.4 fL (83.0-100.0); Mean Platelet Volume 10.1 fL (9.4-12.4); Monocytes # 1.4 K/mcL (0.0-1.3); Monocytes % 5.2 %; Neutrophils # 24.2 K/mcL (1.6-8.9); Platelet Count 185 K/mcL (140-400); Red Blood Count 3.37 M/mcL (4.19-5.50); Red Cell Distribution Width 17.3 % (11.5-14.5); Segmented Neutrophils % 87.6 %; White Blood Count 27.6 K/mcL (4.3-11.1)
[2021-10-12 06:48] LABS: Anisocytosis 1+ (Not Present); Platelet Estimate Normal (Normal); Poikilocytosis 1+ (Not Present); Polychromasia 1+ (Not Present); Target Cells 1+ (Not Present)
[2021-10-12 06:52] LABS: Calcium 8.5 mg/dL (8.6-10.3); Potassium 3.3 mEq/L (3.5-5.1)
[2021-10-12] MEDS: Insulin LISPRO 300 UNITS/3 ML VIAL SUBQ SCH ×4 (07:39→20:26)
[2021-10-12] MEDS: Renal Vitamin 1 CAP CAPSULE PO SCH (10:02)
[2021-10-12] MEDS: Lactobacillus 1 EACH CAP.SPRINK PO SCH ×2 (10:02→23:01)
[2021-10-12] MEDS: metroNIDAZOLE 500 MG TABLET PO SCH ×3 (10:02→23:01)
[2021-10-12] MEDS: Ethyl Chloride Spray Bottle (104 SPRAY/BOTTLE) TP SCH (13:36)
[2021-10-12] MEDS: Cefepime HCl 1,000 MG in 0.9 % Sodium Chloride 10 ML IVP SCH (14:27)
[2021-10-12] MEDS ORDERED: Perflutren Lipid Microsphere 1.3 ML in 0.9 % Sodium Chloride 8.7 ML IVP PRN (16:06)
[2021-10-12] MEDS: Leptospermum Honey Paste 44 ML TUBE TP SCH (19:36)
[2021-10-12] MEDS: Famotidine 20 MG TABLET PO SCH (23:02)
[2021-10-13] MEDS: *HR* Heparin 5,000 UNIT/ML VIAL SQ SCH ×3 (05:02→21:52)
[2021-10-13] MEDS: *HR* OxyCODONE ER (12 HR) 10 MG TABLET PO SCH ×2 (05:12→16:41)
[2021-10-13] MEDS: Insulin LISPRO 300 UNITS/3 ML VIAL SUBQ SCH ×3 (08:30→16:32)
[2021-10-13] MEDS: Lactobacillus 1 EACH CAP.SPRINK PO SCH ×2 (08:34→20:20)
[2021-10-13] MEDS: metroNIDAZOLE 500 MG TABLET PO SCH ×3 (08:34→20:20)
[2021-10-13] MEDS: Renal Vitamin 1 CAP CAPSULE PO SCH (08:34)
[2021-10-13] MEDS ORDERED: 0.9 % Sodium Chloride 250 ML IVC PRN (09:27)
[2021-10-13] MEDS ORDERED: Ethyl Chloride Spray Bottle (104 SPRAY/BOTTLE) TP PRN (09:27)
[2021-10-13] MEDS ORDERED: Albumin 25% 25gram/100mL 25 GM/100 ML IV.SOLN IVPB PRN (09:27)
[2021-10-13] MEDS: *HR* OxyCODONE/APAP 10/325 TABLET PO PRN (11:52)
[2021-10-13 12:08] LABS: Calcium 8.4 mg/dL (8.6-10.3); Potassium 3.1 mEq/L (3.5-5.1)
[2021-10-13 14:17] LABS: Hematocrit 28.9 % (37.5-50.1); Hemoglobin 9.8 g/dL (12.9-16.9); Mean Corpuscular HGB Conc 33.9 g/dL (31.6-35.5); Mean Corpuscular Hemoglobin 31.1 pg (28.0-33.3); Mean Corpuscular Volume 91.7 fL (83.0-100.0); Mean Platelet Volume 10.8 fL (9.4-12.4); Nucleated Red Blood Cells 0.1 /100 WBC (0); Platelet Count 189 K/mcL (140-400); Red Blood Count 3.15 M/mcL (4.19-5.50); Red Cell Distribution Width 17.1 % (11.5-14.5); White Blood Count 27.8 K/mcL (4.3-11.1)
[2021-10-13 14:59] LABS: Lymphocytes # 0.6 K/mcL (0.6-4.6); Monocytes # 0.8 K/mcL (0.0-1.3); Neutrophils # 26.4 K/mcL (1.6-8.9)
[2021-10-13 15:00] LABS: Poikilocytosis 1+ (Not Present); Target Cells 1+ (Not Present); Toxic Granulation Present (Not Present)
[2021-10-13 15:01] LABS: Large Platelets Present (Not Present); Platelet Estimate Normal (Normal)
[2021-10-13] MEDS: Cefepime HCl 1,000 MG in 0.9 % Sodium Chloride 10 ML IVP SCH (15:32)
[2021-10-13] MEDS ORDERED: Vancomycin 500 MG in 0.9 % Sodium Chloride Mini Bag 100 ML IVPB ONE (16:00)
[2021-10-13] MEDS: Famotidine 20 MG TABLET PO SCH (20:20)
[2021-10-13] MEDS: Leptospermum Honey Paste 44 ML TUBE TP SCH (22:07)
[2021-10-14] MEDS: Insulin LISPRO 300 UNITS/3 ML VIAL SUBQ SCH ×5 (00:14→20:55)
[2021-10-14 05:40] LABS: Monocytes % 5.2 %; Nucleated Red Blood Cells 0.1 /100 WBC (0)
[2021-10-14 05:41] LABS: Basophils # 0.1 K/mcL (0.0-0.2); Basophils % 0.4 %; Eosinophils # 0.1 K/mcL (0.0-0.6); Eosinophils % 0.2 %; Hematocrit 32.8 % (37.5-50.1); Hemoglobin 10.8 g/dL (12.9-16.9); Immature Granulocytes % 3.4 % (0-4); Lymphocytes % 3.3 %; Mean Corpuscular HGB Conc 32.9 g/dL (31.6-35.5); Mean Corpuscular Hemoglobin 29.8 pg (28.0-33.3); Mean Corpuscular Volume 90.4 fL (83.0-100.0); Mean Platelet Volume 10.1 fL (9.4-12.4); Monocytes # 1.5 K/mcL (0.0-1.3); Neutrophils # 25.1 K/mcL (1.6-8.9); Platelet Count 185 K/mcL (140-400); Red Blood Count 3.63 M/mcL (4.19-5.50); Red Cell Distribution Width 17.2 % (11.5-14.5); Segmented Neutrophils % 87.5 %; White Blood Count 28.7 K/mcL (4.3-11.1)
[2021-10-14 05:58] LABS: Calcium 8.6 mg/dL (8.6-10.3); Potassium 3.4 mEq/L (3.5-5.1)
[2021-10-14] MEDS: *HR* OxyCODONE ER (12 HR) 10 MG TABLET PO SCH ×2 (06:05→16:39)
[2021-10-14] MEDS: *HR* Heparin 5,000 UNIT/ML VIAL SQ SCH ×3 (06:05→23:04)
[2021-10-14] MEDS: metroNIDAZOLE 500 MG TABLET PO SCH ×3 (09:53→23:04)
[2021-10-14] MEDS: Renal Vitamin 1 CAP CAPSULE PO SCH (09:53)
[2021-10-14] MEDS: Lactobacillus 1 EACH CAP.SPRINK PO SCH ×2 (09:53→23:05)
[2021-10-14] MEDS: Cefepime HCl 1,000 MG in 0.9 % Sodium Chloride 10 ML IVP SCH (13:30)
[2021-10-14] MEDS: Melatonin 3 MG TABLET PO PRN (23:04)
[2021-10-14] MEDS: Famotidine 20 MG TABLET PO SCH (23:04)
[2021-10-14] MEDS: Leptospermum Honey Paste 44 ML TUBE TP SCH (23:05)
[2021-10-15 02:00] LABS: Calcium 8.7 mg/dL (8.6-10.3); Potassium 3.4 mEq/L (3.5-5.1)
[2021-10-15 02:18] LABS: Basophils % 0.4 %; Lymphocytes % 3.6 %; Nucleated Red Blood Cells 0.1 /100 WBC (0); Red Cell Distribution Width 18.2 % (11.5-14.5)
[2021-10-15 02:20] LABS: Basophils # 0.1 K/mcL (0.0-0.2); Eosinophils # 0.1 K/mcL (0.0-0.6); Eosinophils % 0.4 %; Hematocrit 31.1 % (37.5-50.1); Hemoglobin 10.3 g/dL (12.9-16.9); Immature Granulocytes % 3.8 % (0-4); Mean Corpuscular HGB Conc 33.1 g/dL (31.6-35.5); Mean Corpuscular Hemoglobin 30.4 pg (28.0-33.3); Mean Corpuscular Volume 91.7 fL (83.0-100.0); Mean Platelet Volume 10.5 fL (9.4-12.4); Monocytes # 1.6 K/mcL (0.0-1.3); Monocytes % 5.6 %; Platelet Count 186 K/mcL (140-400); Red Blood Count 3.39 M/mcL (4.19-5.50); Segmented Neutrophils % 86.2 %; White Blood Count 27.8 K/mcL (4.3-11.1)
[2021-10-15] MEDS ORDERED: Acetaminophen 325 MG TABLET PO ONE (03:52)
[2021-10-15] MEDS: *HR* OxyCODONE ER (12 HR) 10 MG TABLET PO SCH ×2 (05:15→16:29)
[2021-10-15] MEDS: *HR* Heparin 5,000 UNIT/ML VIAL SQ SCH ×3 (05:18→20:13)
[2021-10-15] MEDS: Insulin LISPRO 300 UNITS/3 ML VIAL SUBQ SCH ×4 (08:04→19:49)
[2021-10-15] MEDS: Lactobacillus 1 EACH CAP.SPRINK PO SCH ×2 (08:14→20:32)
[2021-10-15] MEDS: Renal Vitamin 1 CAP CAPSULE PO SCH (08:14)
[2021-10-15] MEDS: metroNIDAZOLE 500 MG TABLET PO SCH ×3 (08:14→20:32)
[2021-10-15] MEDS: Cefepime HCl 1,000 MG in 0.9 % Sodium Chloride 10 ML IVP SCH (11:33)
[2021-10-15] MEDS: Ethyl Chloride Spray Bottle (104 SPRAY/BOTTLE) TP SCH (11:54)
[2021-10-15] MEDS: *HR* OxyCODONE/APAP 10/325 TABLET PO PRN (12:13)
[2021-10-15] MEDS: polyethylene glycoL 3350 17 GM POWD.PACK PO SCH (16:31)
[2021-10-15] MEDS ORDERED: 0.9 % Sodium Chloride 1,000 ML IVC ONE (20:02)
[2021-10-15] MEDS: Famotidine 20 MG TABLET PO SCH (20:32)
[2021-10-15] MEDS: Leptospermum Honey Paste 44 ML TUBE TP SCH (20:33)
[2021-10-15] MEDS: *HR* Dextrose 50 % in Water (Syg) 50 ML SYRINGE IVP PRN (23:19)
[2021-10-16 01:27] LABS: Eosinophils % 0.3 %; Hemoglobin 10.2 g/dL (12.9-16.9); Nucleated Red Blood Cells 0.1 /100 WBC (0)
[2021-10-16 01:28] LABS: Basophils # 0.1 K/mcL (0.0-0.2); Basophils % 0.3 %; Eosinophils # 0.1 K/mcL (0.0-0.6); Immature Granulocytes % 4.3 % (0-4); Lymphocytes # 1.3 K/mcL (0.6-4.6); Lymphocytes % 4.4 %; Mean Corpuscular HGB Conc 32.9 g/dL (31.6-35.5); Mean Corpuscular Hemoglobin 30.4 pg (28.0-33.3); Mean Corpuscular Volume 92.3 fL (83.0-100.0); Mean Platelet Volume 10.7 fL (9.4-12.4); Monocytes # 1.6 K/mcL (0.0-1.3); Monocytes % 5.6 %; Neutrophils # 24.7 K/mcL (1.6-8.9); Platelet Count 186 K/mcL (140-400); Red Blood Count 3.36 M/mcL (4.19-5.50); Red Cell Distribution Width 18.6 % (11.5-14.5); Segmented Neutrophils % 85.1 %
[2021-10-16 01:40] LABS: Calcium 8.6 mg/dL (8.6-10.3); Potassium 3.4 mEq/L (3.5-5.1)
[2021-10-16] MEDS: *HR* OxyCODONE ER (12 HR) 10 MG TABLET PO SCH (05:54)
[2021-10-16] MEDS: *HR* Heparin 5,000 UNIT/ML VIAL SQ SCH ×2 (05:54→14:44)
[2021-10-16] MEDS ORDERED: 0.9 % Sodium Chloride 250 ML IVC PRN (07:35)
[2021-10-16] MEDS: Insulin LISPRO 300 UNITS/3 ML VIAL SUBQ SCH ×2 (07:39→12:31)
[2021-10-16] MEDS ORDERED: 0.9 % Sodium Chloride 1,000 ML PRIME SCH (07:45)
[2021-10-16] MEDS: Renal Vitamin 1 CAP CAPSULE PO SCH (08:02)
[2021-10-16] MEDS: Lactobacillus 1 EACH CAP.SPRINK PO SCH (08:02)
[2021-10-16] MEDS: metroNIDAZOLE 500 MG TABLET PO SCH ×2 (08:02→14:44)
[2021-10-16] MEDS: polyethylene glycoL 3350 17 GM POWD.PACK PO SCH (08:03)
[2021-10-16] MEDS: 0.9 % Sodium Chloride 500 ML IVC SCH ×3 (10:08→14:59)
[2021-10-16] MEDS ORDERED: Norepinephrine 4 MG/254 ML IV.SOLN IVC SCH (11:15)
[2021-10-16 11:42] VITALS: BP 55/32; PULSE 93; TEMP 97.7; O2SAT 95
[2021-10-16] MEDS: Cefepime HCl 1,000 MG in 0.9 % Sodium Chloride 10 ML IVP SCH (12:35)
[2021-10-16] MEDS ORDERED: 0.9 % Sodium Chloride 500 ML IVC PRN (14:55)
[2021-10-16] MEDS ORDERED: Vancomycin 500 MG in 0.9 % Sodium Chloride Mini Bag 100 ML IVPB ONE (16:00)
[2021-10-16 16:12] LABS: Hepatitis B Surface Antibody < 3.10 mIU/mL
[2021-10-16 16:23] LABS: Hepatitis B Surface Antigen Nonreactive (Nonreactive)
== END 2021-10-16 16:14 | disposition hospice, inpatient (51) | DRG 981 ==
LOC: 2ANU 23:08 → EMEROOARM 23:08 → SUATTDRO 09-25 04:09 → 2ANU 09-25 04:45 → SUATTDRO 09-28 13:41
PROVIDERS: ADMIT Internal Medicine; ATTEND Hospitalist